=== PATIENT | female | born 1935 | race Caucasian/White ===

== ENCOUNTER 2022-05-06 17:23 | Inpatient (IN) ==
--- NOTE | 2022-05-06 18:37 | Emergency Department Note ---
Impression & Plan Altered mental status, Hypomagnesemia, Weakness, Acute UTI ED Provider Note NAME: GINO SAHNI AGE: 86 SEX: F : 1935 ARRIVES VIA: Ambulance INFORMANT: Patient[nursing, son] ED PROVIDER(S): [Spencer Waller MD] CHIEF COMPLAINT: Altered mental status HISTORY OF PRESENT ILLNESS: The patient is an 86-year-old female who presents for some slowness to respond noted today. No speech slur. No vomiting or diarrhea, no fever or chills. No chest pain or abdominal pain. She has not had cough, cold or congestion. The patient has a history of CVA, there was concern for stroke, the son is concerned for electrolyte abnormalities and dehydration. As per nursing staff, the patient's stroke scale was 0. Her urine dip was positive for infection. REVIEW OF SYSTEMS: See HPI for pertinent positives and negatives. A total of ten systems were reviewed and were otherwise negative. PMHx/PSHx: See Below SOCIAL HISTORY: See Below. PHYSICAL EXAM: GENERAL: Patient is in no acute distress. HEENT: No acute trauma, normocephalic atraumatic, mucous membranes moist, no nasal congestion, no scleral icterus. NECK: No stridor, no adenopathy, no meningismus, trachea is midline. LUNGS: Clear to auscultation bilaterally, no wheeze, no rhonchi, breath sounds equal. HEART: Subtle systolic murmur, regular rate and rhythm. ABDOMEN: Soft, nontender, bowel sounds positive, no peritonitis. There is a yeastlike rash in the groin creases. EXTREMITIES: No cyanosis, full range of motion of all the joints without pain or difficulty, no signs for acute trauma. NEUROLOGIC: Oriented x 3, no acute motor or sensory deficits, no focal weakness. No speech slur, no extremity drift or cerebellar dysfunction. SKIN: No rash, no jaundice, no diaphoresis. DIFFERENTIAL DIAGNOSIS: Infection, dehydration, metabolic abnormality, UTI, COVID-19, influenza, hypo/hyperglycemia, electrolyte disturbance, anemia, hypoxia, cardiac sources, intracerebral event, toxicologic issues, stroke, TIA, as well as other pathologies. EMERGENCY DEPARTMENT COURSE/PROCEDURES: ECG: Indication was weakness. The ECG shows a normal sinus rhythm with a rate of 91. There is no ST elevation, no PVCs. The QTc is 432. Continuous Cardiac Monitoring: An order was placed for continuous cardiac monitoring. The monitor shows a rate of 88 with normal sinus rhythm. MEDICAL DECISION MAKING: There is no leukocytosis. No concerning anemia. There is a normal platelet count. Sodium was low at 131. Creatinine was 1.29, mildly elevated but baseline looking back at recent testing. Magnesium was quite low at 1.3. No worrisome liver enzyme elevation. Lactic acid level was normal making severe sepsis less likely. ECG showed a normal sinus rhythm, no ischemia. Cardiac enzyme testing x1 is not consistent with acute cardiac injury. TSH was elevated however, the T4 was normal. Urinalysis is consistent with infection. COVID, influenza and RSV test were negative. Chest x-ray was clear, no pneumonia. Brain CT showed no acute bleed or mass-effect. On exam, the patient was slow at times to respond but did not slur her words. No focal neurologic findings. The patient presents with weakness, slowness to respond. She was found to have a UTI, a low magnesium and a lower sodium. Given her findings and complaints, I do think a hospital stay is warranted. I spoke with the patient and case planner. The on-call hospitalist was consulted. Past Med/Surg History Medical History CKD (chronic kidney disease) Diabetes Embolic stroke Hypertension Hypothyroidism (acquired) Osteoarthritis Social History Smoking Status: Never smoker Second Hand Exposure: No; Hx Alcohol Use: No Hx Substance Use: No Preferred Language: Yakut Medical Care Manager Required: No Beliefs That Will Affect Care: None Current Living Situation: Long-Term Other Information That Helps Us Care for You: No Feels Safe at Home: Yes Safety Concerns: Feels Safe At This Time Assistive Devices: Glasses and Walker Allergies Allergies Allergy/AdvReac Type Severity Reaction Status Date / Time bacitracin Allergy Unknown Verified 05/06/22 19:44 clindamycin Allergy Unknown Verified 05/06/22 19:44 diltiazem [From Cardizem] Allergy Unknown Verified 05/06/22 19:44 NSAIDS (Non-Steroidal Allergy Unknown Verified 05/06/22 19:44 Anti-Inflamma Penicillins Allergy Unknown Verified 05/06/22 19:44 Sulfa (Sulfonamide Allergy Unknown Verified 05/06/22 19:44 Antibiotics) Home Meds Home Medications Medication Instructions Recorded Confirmed Qc [facility] W/Lutein 1 tab PO DAILY 05/06/22 05/06/22 anastrozole 1 mg tablet 1 mg PO DAILY 05/06/22 05/06/22 aspirin 81 mg chewable tablet 81 mg PO DAILY 05/06/22 05/06/22 (Aspirin Childrens) atorvastatin 80 mg tablet 80 mg PO DAILY 05/06/22 05/06/22 clopidogrel 75 mg tablet 75 mg PO DAILY 05/06/22 05/06/22 coenzyme Q10 100 mg capsule (Co 100 mg PO DAILY 05/06/22 05/06/22 Q-10) diphenhydramine HCl 25 mg tablet 25 mg PO Q8 PRN Itching 05/06/22 05/06/22 ferrous sulfate 325 mg (65 mg 325 mg PO DAILY 05/06/22 05/06/22 iron) tablet glipizide 10 mg tablet, extended 10 mg PO DAILY 05/06/22 05/06/22 release 24 hr glucosamine-chondroitin 250 mg-200 1 tab PO DAILY 05/06/22 05/06/22 mg tablet (Osteo Bi-Flex) hydrocortisone 2.5 % topical cream 1 applic topical BID PRN scaling 05/06/22 05/06/22 insulin aspart U-100 100 unit/mL 1 sliding scale dose subcut AC 05/06/22 05/06/22 (3 mL) subcutaneous pen (Novolog Flexpen U-100 Insulin aspart) insulin glargine 100 unit/mL (3 20 unit subcut .DAILY AT 8 PM 05/06/22 05/06/22 mL) subcutaneous pen (Lantus Solostar U-100 Insulin) levothyroxine 112 mcg tablet 112 mcg PO DAILY 05/06/22 05/06/22 lisinopril 20 mg tablet 20 mg PO DAILY 05/06/22 05/06/22 loratadine 10 mg tablet 10 mg PO DAILY 05/06/22 05/06/22 metformin 500 mg tablet 500 mg PO BIDWMEAL 05/06/22 05/06/22 multivitamin (Daily-Kamilla tablet) 1 tab PO DAILY 05/06/22 05/06/22 nystatin 100,000 unit/gram topical 1 applic topical BID 05/06/22 05/06/22 cream nystatin 100,000 unit/gram topical 1 applic topical TID 05/06/22 05/06/22 powder omega 0-lcl-idp-fish oil 1,200 mg 2 cap PO DAILY 05/06/22 05/06/22 (144 mg-216 mg) capsule (Fish Oil) omeprazole 20 mg capsule,delayed 20 mg PO DAILY 05/06/22 05/06/22 release pantoprazole 20 mg tablet,delayed 20 mg PO DAILY 05/06/22 05/06/22 release potassium chloride 10 mEq 10 meq PO TID 05/06/22 05/06/22 tablet,extended release triamcinolone acetonide 0.1 % 1 applic topical BID 05/06/22 05/06/22 topical ointment Results & Data (ED) Vital Signs Vital Signs - 24 hr 05/06/22 17:36 05/06/22 17:36 05/06/22 17:36 Temperature 36.4 C L Temperature Source Oral Pulse Rate 89 Pulse Rate [Apical] 88 Pulse Rate from SpO2 Sensor Respiratory Rate 16 15 Blood Pressure 180/87 H Blood Pressure Mean 118 Pulse Oximetry 96 Oxygen Delivery Method Room Air Room Air Sepsis Recent Fever Within 48 Hours No Sepsis New/Unexplained Change in Mental Status N/A Sepsis Action Taken by Nursing No Action Required 05/06/22 19:08 05/06/22 19:30 05/06/22 20:00 Temperature Temperature Source Pulse Rate 85 86 81 Pulse Rate [Apical] Pulse Rate from SpO2 Sensor 85 87 82 Respiratory Rate 17 21 18 Blood Pressure Blood Pressure Mean Pulse Oximetry 98 98 98 Oxygen Delivery Method Sepsis Recent Fever Within 48 Hours Sepsis New/Unexplained Change in Mental Status Sepsis Action Taken by Nursing 05/06/22 20:30 05/06/22 20:57 05/06/22 20:57 Temperature Temperature Source Pulse Rate 83 85 Pulse Rate [Apical] Pulse Rate from SpO2 Sensor 86 Respiratory Rate 20 17 Blood Pressure 189/90 H 199/119 H Blood Pressure Mean 123 145 Pulse Oximetry 96 Oxygen Delivery Method Sepsis Recent Fever Within 48 Hours Sepsis New/Unexplained Change in Mental Status Sepsis Action Taken by Nursing 05/06/22 21:00 05/06/22 21:03 05/06/22 21:03 Temperature Temperature Source Pulse Rate 83 86 Pulse Rate [Apical] Pulse Rate from SpO2 Sensor 82 86 Respiratory Rate 16 22 Blood Pressure 200/103 H Blood Pressure Mean 135 Pulse Oximetry 97 96 Oxygen Delivery Method Sepsis Recent Fever Within 48 Hours Sepsis New/Unexplained Change in Mental Status Sepsis Action Taken by Nursing 05/06/22 21:30 05/06/22 21:30 05/06/22 21:51 Temperature Temperature Source Pulse Rate 80 77 Pulse Rate [Apical] Pulse Rate from SpO2 Sensor 80 76 Respiratory Rate 17 19 Blood Pressure 178/105 H Blood Pressure Mean 129 Pulse Oximetry 97 95 Oxygen Delivery Method Sepsis Recent Fever Within 48 Hours Sepsis New/Unexplained Change in Mental Status Sepsis Action Taken by Nursing 05/06/22 21:51 Temperature Temperature Source Pulse Rate Pulse Rate [Apical] Pulse Rate from SpO2 Sensor Respiratory Rate Blood Pressure 183/88 H Blood Pressure Mean 119 Pulse Oximetry Oxygen Delivery Method Sepsis Recent Fever Within 48 Hours Sepsis New/Unexplained Change in Mental Status Sepsis Action Taken by Long-Term Medications Current Medication List: was personally reviewed by me Laboratory Data Attestation: I reviewed the patient's lab results. Result diagrams: 05/06/22 17:33 05/06/22 17:33 Lab Results 05/06/22 05/06/22 05/06/22 Range/Units 17:32 17:33 17:33 WBC 6.04 (4.8-10.8) K/ul RBC 3.74 L (3.93-5.22) M/uL Hgb 11.5 L (12.0-16.0) g/dl Hct 34.2 (34.1-44.9) % MCV 91.4 (80.0-100.0) fL MCH 30.7 (25.0-34.0) pg MCHC 33.6 (32.0-36.0) g/dL RDW Std Deviation 46.3 (36.4-46.3) fL RDW Coeff of Zaid 13.8 (11.5-14.5) % Plt Count 162 (130-400) K/uL MPV 11.3 (9.4-12.3) fL Immature Gran % (Auto) 0.7 % Neut % (Auto) 62.7 % Lymph % (Auto) 23.7 % [place] % (Auto) 8.9 % Eos % (Auto) 3.5 % Baso % (Auto) 0.5 % Neut # (Auto) 3.79 (1.4-6.5) K/uL Lymph # (Auto) 1.43 (1.2-3.4) K/uL [place] # (Auto) 0.54 (0.24-0.82) K/uL Eos # (Auto) 0.21 (0-0.50) K/uL Baso # (Auto) 0.03 (0-0.2) K/uL Immature Gran # (Auto) 0.04 H (0.00-0.02) K/uL Sodium 131 L (136-145) mmol/L Potassium 4.5 (3.5-5.1) mmol/L Chloride 97 L (98-107) mmol/L Carbon Dioxide 22 (21-32) mmol/L Anion Gap 12 H (3-11) BUN 21 (6-23) mg/dl Creatinine 1.29 H (0.6-1.2) mg/dl Est Cr Clr Drug Dosing 38.0 ml/min Est GFR ( Amer) 43.1 ml/min Est GFR (Non-Af Amer) 37.2 ml/min BUN/Creatinine Ratio 16.3 (10-20) Glucose 176 H (70-99(Fasting)) mg/dl POC Glucose (70-99) mg/dl Lactate Calcium 9.5 (8.5-10.1) mg/dl Magnesium 1.3 L (1.7-2.4) mg/dl Total Bilirubin 0.9 (0.2-1.0) mg/dl AST 20 (13-39) U/L ALT 14 (7-52) U/L Alkaline Phosphatase 55 (34-104) U/L Troponin I High Sens 5.6 (0-14) pg/ml Total Protein 7.0 (6.0-8.3) gm/dl Albumin 4.0 (3.4-5.0) gm/dl Globulin 3.0 (2.5-4.0) gm/dl Albumin/Globulin Ratio 1.3 (0.9-2) TSH (0.300-4.500) uIu/ml Free T4 (0.61-1.60) ng/dl Urine Color Yellow Urine Appearance Turbid A (Clear) Urine pH 5.5 (4.5-7.5) Ur Specific [place] 1.013 (1.000-1.030) Urine Protein 1+ H (Negative) Urine Glucose (UA) Trace H (Negative) Urine Ketones Negative (Negative) Urine Blood 1+ H (Negative) Urine Nitrite Positive A (Negative) Urine Bilirubin Negative (Negative) Urine Urobilinogen Negative (Negative) Ur Leukocyte Esterase 3+ H (Negative) Urine WBC (Auto) >30 H (0-5) /hpf Urine RBC (Auto) 0-4 (0-4) /hpf U Hyaline Cast (Auto) 1-5 (0-5) /lpf U Epithel Cells (Auto) >30 H (0-5) /lpf Urine Bacteria (Auto) 4+ H (Negative) SARS-CoV-2 (PCR) (Negative) Influenza Type A (PCR) (Neg) Influenza Type B (PCR) (Neg) RSV (RT-PCR) (Neg) 05/06/22 05/06/22 05/06/22 Range/Units 17:33 19:29 19:46 WBC (4.8-10.8) K/ul RBC (3.93-5.22) M/uL Hgb (12.0-16.0) g/dl Hct (34.1-44.9) % MCV (80.0-100.0) fL MCH (25.0-34.0) pg MCHC (32.0-36.0) g/dL RDW Std Deviation (36.4-46.3) fL RDW Coeff of Zaid (11.5-14.5) % Plt Count (130-400) K/uL MPV (9.4-12.3) fL Immature Gran % (Auto) % Neut % (Auto) % Lymph % (Auto) % [place] % (Auto) % Eos % (Auto) % Baso % (Auto) % Neut # (Auto) (1.4-6.5) K/uL Lymph # (Auto) (1.2-3.4) K/uL [place] # (Auto) (0.24-0.82) K/uL Eos # (Auto) (0-0.50) K/uL Baso # (Auto) (0-0.2) K/uL Immature Gran # (Auto) (0.00-0.02) K/uL Sodium (136-145) mmol/L Potassium (3.5-5.1) mmol/L Chloride (98-107) mmol/L Carbon Dioxide (21-32) mmol/L Anion Gap (3-11) BUN (6-23) mg/dl Creatinine (0.6-1.2) mg/dl Est Cr Clr Drug Dosing ml/min Est GFR ( Amer) ml/min Est GFR (Non-Af Amer) ml/min BUN/Creatinine Ratio (10-20) Glucose (70-99(Fasting)) mg/dl POC Glucose (70-99) mg/dl Lactate Cancelled Calcium (8.5-10.1) mg/dl Magnesium (1.7-2.4) mg/dl Total Bilirubin (0.2-1.0) mg/dl AST (13-39) U/L ALT (7-52) U/L Alkaline Phosphatase (34-104) U/L Troponin I High Sens (0-14) pg/ml Total Protein (6.0-8.3) gm/dl Albumin (3.4-5.0) gm/dl Globulin (2.5-4.0) gm/dl Albumin/Globulin Ratio (0.9-2) TSH 9.982 H (0.300-4.500) uIu/ml Free T4 0.85 (0.61-1.60) ng/dl Urine Color Urine Appearance (Clear) Urine pH (4.5-7.5) Ur Specific [place] (1.000-1.030) Urine Protein (Negative) Urine Glucose (UA) (Negative) Urine Ketones (Negative) Urine Blood (Negative) Urine Nitrite (Negative) Urine Bilirubin (Negative) Urine Urobilinogen (Negative) Ur Leukocyte Esterase (Negative) Urine WBC (Auto) (0-5) /hpf Urine RBC (Auto) (0-4) /hpf U Hyaline Cast (Auto) (0-5) /lpf U Epithel Cells (Auto) (0-5) /lpf Urine Bacteria (Auto) (Negative) SARS-CoV-2 (PCR) NEGATIVE (Negative) Influenza Type A (PCR) Negative (Neg) Influenza Type B (PCR) Negative (Neg) RSV (RT-PCR) Negative (Neg) 05/06/22 05/06/22 Range/Units 20:12 20:30 WBC (4.8-10.8) K/ul RBC (3.93-5.22) M/uL Hgb (12.0-16.0) g/dl Hct (34.1-44.9) % MCV (80.0-100.0) fL MCH (25.0-34.0) pg MCHC (32.0-36.0) g/dL RDW Std Deviation (36.4-46.3) fL RDW Coeff of Zaid (11.5-14.5) % Plt Count (130-400) K/uL MPV (9.4-12.3) fL Immature Gran % (Auto) % Neut % (Auto) % Lymph % (Auto) % [place] % (Auto) % Eos % (Auto) % Baso % (Auto) % Neut # (Auto) (1.4-6.5) K/uL Lymph # (Auto) (1.2-3.4) K/uL [place] # (Auto) (0.24-0.82) K/uL Eos # (Auto) (0-0.50) K/uL Baso # (Auto) (0-0.2) K/uL Immature Gran # (Auto) (0.00-0.02) K/uL Sodium (136-145) mmol/L Potassium (3.5-5.1) mmol/L Chloride (98-107) mmol/L Carbon Dioxide (21-32) mmol/L Anion Gap (3-11) BUN (6-23) mg/dl Creatinine (0.6-1.2) mg/dl Est Cr Clr Drug Dosing ml/min Est GFR ( Amer) ml/min Est GFR (Non-Af Amer) ml/min BUN/Creatinine Ratio (10-20) Glucose (70-99(Fasting)) mg/dl POC Glucose 157 H (70-99) mg/dl Lactate 1.9 Calcium (8.5-10.1) mg/dl Magnesium (1.7-2.4) mg/dl Total Bilirubin (0.2-1.0) mg/dl AST (13-39) U/L ALT (7-52) U/L Alkaline Phosphatase (34-104) U/L Troponin I High Sens (0-14) pg/ml Total Protein (6.0-8.3) gm/dl Albumin (3.4-5.0) gm/dl Globulin (2.5-4.0) gm/dl Albumin/Globulin Ratio (0.9-2) TSH (0.300-4.500) uIu/ml Free T4 (0.61-1.60) ng/dl Urine Color Urine Appearance (Clear) Urine pH (4.5-7.5) Ur Specific [place] (1.000-1.030) Urine Protein (Negative) Urine Glucose (UA) (Negative) Urine Ketones (Negative) Urine Blood (Negative) Urine Nitrite (Negative) Urine Bilirubin (Negative) Urine Urobilinogen (Negative) Ur Leukocyte Esterase (Negative) Urine WBC (Auto) (0-5) /hpf Urine RBC (Auto) (0-4) /hpf U Hyaline Cast (Auto) (0-5) /lpf U Epithel Cells (Auto) (0-5) /lpf Urine Bacteria (Auto) (Negative) SARS-CoV-2 (PCR) (Negative) Influenza Type A (PCR) (Neg) Influenza Type B (PCR) (Neg) RSV (RT-PCR) (Neg) Administered Medications Discontinued Medications Ceftriaxone Sodium (Rocephin) 2,000 mg in 70 mls @ 140 mls/hr IV NOW STA Stop: 05/06/22 20:11 Last Infusion: 05/06/22 21:08 Dose: 0 mls/hr Documented By: Admin: 05/06/22 20:24 Dose: 140 mls/hr Documented By: SHALOM Sodium Chloride (Nss 1000ml) 1,000 mls @ 999 mls/hr IV .Q1H1M ONE Stop: 05/06/22 20:57 Last Infusion: 05/06/22 22:06 Dose: 0 mls/hr Documented By: Admin: 05/06/22 21:13 Dose: 999 mls/hr Documented By: SHALOM Magnesium Sulfate/Dextrose (Magnesium Sulfate / D5w) 1 gm in 100 mls @ 100 mls/hr IV Q1H JOSUÉ Stop: 05/06/22 22:51 Last Infusion: 05/06/22 23:36 Dose: 0 mls/hr Documented By: Admin: 05/06/22 22:16 Dose: 100 mls/hr Documented By: Infusion: 05/06/22 22:09 Dose: 100 mls/hr Documented By: Admin: 05/06/22 21:09 Dose: 100 mls/hr Documented By: SHALOM Labetalol HCl (Labetalol Hcl Iv 5 Mg/Ml 20ml) 10 mg IV NOW STA Stop: 05/06/22 21:19 Last Admin: 05/06/22 21:26 Dose: 10 mg Documented By: SHALOM Co-signed By: [facility] Imaging Data Radiologist's Impression: Chest X-Ray 05/06/22 18:35 XR chest 1V portable CLINICAL HISTORY: weakness COMPARISON STUDY: Chest radiograph January 16, 2022. FINDINGS: Lung volumes are normal. Lungs are clear. There is no pneumothorax or pleural effusion. Mild cardiomegaly with mitral annular calcification. Mediastinal contours are normal. There is no evidence for pulmonary edema. IMPRESSION: No acute cardiopulmonary findings. ACT 112: Negative or not required by law. Electronically signed by: Hilton Moreau M.D. 05/06/2022 6:[address] 05/06/22 18:35 CT OF THE HEAD WITHOUT CONTRAST CLINICAL HISTORY: Confusion. COMPARISON STUDY: Head CT January 16, 2022. CT DOSE: 537.48 mGy.cm TECHNIQUE: Helical axial images of the head were obtained without IV contrast. Automated exposure control was utilized for the study. A dose lowering technique was utilized adhering to the principles of ALARA. FINDINGS: No acute intracranial hemorrhage, midline shift or mass effect is p resent. Ventricular system is stable. Basal cisterns are patent. There are no extra axial collections. Encephalomalacia within the left parietal lobe is unchanged. This represents an old infarct. An old lacunar infarct within left cerebellar hemisphere. White matter hypodensity suggests small vessel disease. The appearance of the brain is unchanged. There are no findings to suggest acute dural sinus thrombosis or acute territorial infarct. There is no acute calvarial fracture. Bilateral mastoid air cells are partially opacified. This is unchanged. IMPRESSION: No acute intracranial findings. No change in appearance of the brain. ACT 112: Negative or not required by law. Electronically signed by: Hilton Moreau M.D. 05/06/2022 7:10 PM Discharge Plan Visit Data Chief Complaint: Altered Mental Status ED Provider: Spencer Waller Discharge Problem: Altered mental status, Hypomagnesemia, Weakness, Acute UTI Patient Disposition: Admitted As Inpatient Condition: Fair Discharge Instructions Interventions: ED Discharge Assessment Last Done: 05/06/22 22:43
--- NOTE | 2022-05-06 18:53 | XRay Report ---
XR chest 1V portable CLINICAL HISTORY: weakness COMPARISON STUDY: Chest radiograph January 16, 2022. FINDINGS: Lung volumes are normal. Lungs are clear. There is no pneumothorax or pleural effusion. Mil d cardiomegaly with mitral annular calcification. Mediastinal contours are normal. There is no eviden ce for pulmonary edema. IMPRESSION: No acute cardiopulmonary findings. ACT 112: Negative or not required by law. Electronically signed by: Hilton Moreau M.D. 05/06/2022 6:52 PM
--- NOTE | 2022-05-06 19:11 | CT Scan Report ---
CT OF THE HEAD WITHOUT CONTRAST CLINICAL HISTORY: Confusion. COMPARISON STUDY: Head CT January 16, 2022. CT DOSE: 537.48 mGy.cm TECHNIQUE: Helical axial images of the head were obtained without IV contrast. Automated exposure con trol was utilized for the study. A dose lowering technique was utilized adhering to the principles o f ALARA. FINDINGS: No acute intracranial hemorrhage, midline shift or mass effect is present. Ventricular syst em is stable. Basal cisterns are patent. There are no extra axial collections. Encephalomalacia withi n the left parietal lobe is unchanged. This represents an old infarct. An old lacunar infarct within left cerebellar hemisphere. White matter hypodensity suggests small vessel disease. The appearance of the brain is unchanged. There are no findings to suggest acute dural sinus thrombosis or acute dannie torial infarct. There is no acute calvarial fracture. Bilateral mastoid air cells are partially opaci fied. This is unchanged. IMPRESSION: No acute intracranial findings. No change in appearance of the brain. ACT 112: Negative or not required by law. Electronically signed by: Hilton Moreau M.D. 05/06/2022 7:10 PM
[2022-05-06 19:20] LABS: Albumin Globulin Ratio 1.3 (0.9-2); BUN Creatinine Ratio 16.3 (10-20); Bilirubin,Total 0.9 mg/dl (0.2-1.0); Calcium 9.5 mg/dl (8.5-10.1); Est GFR (African American) 43.1 ml/min; Est GFR (Non-African American) 37.2 ml/min; Magnesium 1.3 mg/dl (1.7-2.4); Potassium 4.5 mmol/L (3.5-5.1)
[2022-05-06 19:23] LABS: Troponin I High Sensitivity 5.6 pg/ml (0-14)
[2022-05-06 19:34] LABS: Appearance Urine Turbid (Clear); Bacteria Urine Automated 4+ (Negative); Bilirubin Urine Negative (Negative); Blood Urine 1+ (Negative); Color Urine Yellow; Epithelial Cell Urine Auto >30 /lpf (0-5); Glucose Urine UA Trace (Negative); Ketones Urine Negative (Negative); Leukocyte Esterase Urine 3+ (Negative); Nitrite Urine Positive (Negative); Protein Urine 1+ (Negative); RBC Urine Automated 0-4 /hpf (0-4); Specific Gravity Urine 1.013 (1.000-1.030); Urobilinogen Urine Negative (Negative); WBC Urine Automated >30 /hpf (0-5); pH Urine 5.5 (4.5-7.5)
[2022-05-06 19:38] LABS: Thyroid Stimulating Hormone 9.982 uIu/ml (0.300-4.500)
[2022-05-06] MEDS ORDERED: cefTRIAXone SODIUM 2,000 MG/70 ML BAG IV STA (19:42)
[2022-05-06 19:44] LABS: Basophils # (auto) 0.03 K/uL (0-0.2); Basophils % (auto) 0.5 %; Eosinophils # (auto) 0.21 K/uL (0-0.50); Eosinophils % (auto) 3.5 %; Hematocrit (blood only) 34.2 % (34.1-44.9); Hemoglobin 11.5 g/dl (12.0-16.0); Immature Granulocytes # (auto) 0.04 K/uL (0.00-0.02); Immature Granulocytes % (auto) 0.7 %; Lymphocytes # (auto) 1.43 K/uL (1.2-3.4); Lymphocytes % (auto) 23.7 %; Mean Corpuscular Hemoglobin 30.7 pg (25.0-34.0); Mean Corpuscular Hgb Conc 33.6 g/dL (32.0-36.0); Mean Corpuscular Volume 91.4 fL (80.0-100.0); Mean Platelet Volume 11.3 fL (9.4-12.3); Monocytes # (auto) 0.54 K/uL (0.24-0.82); Monocytes % (auto) 8.9 %; Neutrophils # (auto) 3.79 K/uL (1.4-6.5); Neutrophils % (auto) 62.7 %; Platelet Count 162 K/uL (130-400); RDW Coefficient of Variation 13.8 % (11.5-14.5); RDW Standard Deviation 46.3 fL (36.4-46.3); Red Blood Count 3.74 M/uL (3.93-5.22); White Blood Count 6.04 K/ul (4.8-10.8)
[2022-05-06] MEDS ORDERED: SODIUM CHLORIDE 0.9% 1000ML 1,000 ML IV ONE (19:57)
[2022-05-06 20:44] LABS: T4 Free Thyroxine 0.85 ng/dl (0.61-1.60)
[2022-05-06 20:48] LABS: Influenza A virus by PCR Negative (Neg); Influenza B virus by PCR Negative (Neg); RSV by PCR Negative (Neg); SARS CoV2 RNA(COVID-19)Cepheid NEGATIVE (Negative)
[2022-05-06] MEDS: MAGNESIUM SULFATE / D5W 1 GM/100 ML BAG IV SCH ×2 (21:09→22:16)
[2022-05-06] MEDS ORDERED: LABETALOL HCL IV 5 MG/ML 20ML IV STA (21:18)
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
[2022-05-06] MEDS ORDERED: ONDANSETRON INJ 2 MG/ML 2 ML VIAL IV PRN (22:00)
[2022-05-06] MEDS ORDERED: POLYETHYLENE (MIRALAX) 17 GM PACK PO PRN (22:00)
[2022-05-06] MEDS ORDERED: ACETAMINOPHEN 325 MG TAB PO PRN (22:00)
[2022-05-06] MEDS ORDERED: GLUCAGON FOR INJ 1 MG VIAL SQ PRN (22:07)
[2022-05-06] MEDS ORDERED: GLUCOSE 10 TAB/TUBE PO PRN (22:07)
[2022-05-06] MEDS ORDERED: GLUCOSE 40% GEL 15 GM TUBE PO PRN (22:07)
[2022-05-06] MEDS ORDERED: CARBOHYDRATES FOR HYPOGLYCEMIA PO PRN (22:07)
[2022-05-06] MEDS ORDERED: DEXTROSE 50% 50 ML SYRINGE IV PRN (22:07)
[2022-05-07] MEDS: LANTUS PER UNIT CHARGE SQ SCH ×2 (00:07→21:35)
[2022-05-07] MEDS: INSULIN ASPART PER UNIT SC SCH ×5 (01:06→21:37)
[2022-05-07] MEDS: LEVOTHYROXINE SODIUM 112 MCG TABLET PO SCH (06:04)
[2022-05-07] MEDS ORDERED: INSULIN ASPART PER UNIT SC SCH (07:30)
[2022-05-07 07:32] LABS: Hematocrit (blood only) 32.6 % (34.1-44.9); Hemoglobin 11.2 g/dl (12.0-16.0); Mean Corpuscular Hemoglobin 31.3 pg (25.0-34.0); Mean Corpuscular Hgb Conc 34.4 g/dL (32.0-36.0); Mean Corpuscular Volume 91.1 fL (80.0-100.0); Mean Platelet Volume 11.4 fL (9.4-12.3); Platelet Count 172 K/uL (130-400); RDW Coefficient of Variation 13.7 % (11.5-14.5); RDW Standard Deviation 45.7 fL (36.4-46.3); Red Blood Count 3.58 M/uL (3.93-5.22); White Blood Count 5.94 K/ul (4.8-10.8)
[2022-05-07 08:01] LABS: BUN Creatinine Ratio 16.1 (10-20); Calcium 8.9 mg/dl (8.5-10.1); Creatinine Clr Calc Pharmacy 43.4 ml/min; Est GFR (African American) 51.2 ml/min; Est GFR (Non-African American) 44.1 ml/min; Magnesium 1.7 mg/dl (1.7-2.4); Potassium 4.1 mmol/L (3.5-5.1)
[2022-05-07] MEDS ORDERED: POTASSIUM CHLORIDE 10 MEQ TABCR PO SCH (09:00)
[2022-05-07] MEDS ORDERED: NON-FORMULARY MEDICATION (Coenzyme Q10 [Co Q-10] 100 mg Capsule) PO SCH (09:00)
[2022-05-07] MEDS ORDERED: LUTEIN PO SCH (09:00)
[2022-05-07] MEDS ORDERED: [UNRECOGNIZED DRUG - OTHER] PO SCH (09:00)
[2022-05-07] MEDS ORDERED: cefTRIAXone SODIUM 1,000 MG in DEXTROSE 5% 50 ML IV SCH (09:00)
[2022-05-07] MEDS ORDERED: NYSTATIN POWDER 15GM BTL EXT SCH (09:00)
[2022-05-07] MEDS ORDERED: NON-FORMULARY MEDICATION (Glucosamine-Chondroitin [Osteo Bi-Flex] 250-200 mg Tablet) PO SCH (09:00)
[2022-05-07] MEDS: ATORVASTATIN 40 MG TAB PO SCH (09:10)
[2022-05-07] MEDS: ASPIRIN 81 MG ECTAB PO SCH (09:10)
[2022-05-07] MEDS: CLOPIDOGREL BISULFATE 75 MG TAB PO SCH (09:10)
[2022-05-07] MEDS: NYSTATIN CR 15 GM TUBE EXT SCH ×2 (09:10→21:38)
[2022-05-07] MEDS: PANTOprazole 40 MG TAB PO SCH (09:10)
[2022-05-07] MEDS: OMEGA-3 (PURIFIED FISH OIL) 1 GM CAP PO SCH (09:10)
[2022-05-07] MEDS: MULTIVITAMIN TAB PO SCH (09:11)
[2022-05-07] MEDS: POTASSIUM CHLORIDE 10 MEQ TABCR PO SCH ×2 (09:11→21:39)
[2022-05-07] MEDS: LORATADINE 10 MG TAB PO SCH (09:11)
[2022-05-07] MEDS: lisinopril 20 MG TAB PO SCH (09:11)
[2022-05-07] MEDS: FERROUS SULFATE 325 MG TAB PO SCH (09:11)
[2022-05-07] MEDS: glipiZIDE ER 2.5 MG TABCR PO SCH (09:12)
[2022-05-07] MEDS: HEPARIN SOD 5,000 UNIT/0.5 ML VIAL SQ SCH ×2 (09:16→21:38)
[2022-05-07] MEDS: ANASTROZOLE 1 MG TAB PO SCH (09:22)
[2022-05-07] MEDS: metFORMIN HCL 500 MG TAB PO SCH ×2 (10:11→17:10)
--- NOTE | 2022-05-07 13:28 | Hospitalist Progress Note ---
Date of Service May 07, 2022 Assessment & Plan (1) Altered mental state: Plan: 86yo Female with PMH hx stroke, DM2, HLD, GERD, HTN, hypothyroidism, hx breast cancer here for AMS. AMS -likely 2/2 to UTI -currently back at baseline, AAOx3 -CT head: No acute intracranial findings. No change in appearance of the brain. - CXR: No acute cardiopulmonary findings. - CBC lactate trop neg - Mg 1.3, repleted 1g in ED - received Rocephin 2g in ED (2) Hypomagnesemia: Plan: Magnesium level 1.3 mg/dL on admission labs. Magnesium sulfate 2 g IV given on admission, repeat level 1.7, will give additional 2 g IV today and start magnesium oxide 400 mg p.o. twice daily (3) Acute UTI: Plan: -UCX - GNB -Bcx pending -received Rocephin 2g in ED, continue Rocephin 1g daily -transition to PO once sensitivities available (4) Hypothyroidism (acquired): Plan: -TSH 9.9, free T4 0.85 -continue levothyroxine -may be elevated 2/2 infection, consider recheck in 1 month, if still elevated increase daily levothyroxine (5) Hypertension: Plan: -bp elevated on admit 189/90 -received 1L NSS in ED -continue lisinopril (6) Diabetes: Plan: -recent A1c 9.5 -Continue her regular metformin, glipizide and Lantus -Novolog: Correction factor 30 mg/dL/unit, will discontinue carbohydrate coverage as continuing her usual glipizide effectively for carbohydrate coverage (7) Embolic stroke: Plan: History of stroke -continue aspirin plavix -continue Atorvastatin (8) GERD (gastroesophageal reflux disease): Plan: -continue protonix -is on both protonix and omeprazole at home, consider dc omeprazole for home medications (9) History of breast cancer: Plan: Continue anastrozole 1 mg p.o. daily (10) CKD (chronic kidney disease): Plan: -chronic, creat 1.29 -> 1.12 Plan VTE prophylaxis -Heparin 5000 units subcu twice daily Diet -type 2 diabetes Disposition -stable for transfer to [facility], possible discharge tomorrow pending PT OT eitan Admission and Anticipated Discharge Date Admission Date: May 06, 2022 Subjective No acute concerns or questions from patient. She is able to tell me why she is in the hospital with concerns of her slurred speech when she tried to use her echo device in her room. She denies any fever chills, urinary frequency, change in urine frequency/smell/color, dysuria or back pain. Discussed with her son over the phone. He reports feeling his mother is back to her baseline at this time. Possible need for [facility] rehabilitation plan physical therapy versus home health PT. Occupational Therapy assessment pending. Asymptomatic nonsustained VT of 7 beats on telemetry otherwise unremarkable. Review of Systems Review of Systems: All systems reviewed & are unremarkable except as noted in Subjective Physical Exam Constitutional: WD/WN, vitals as above Eyes: PERRL, conjunctivae normal, anicteric sclerae Respiratory: normal respiratory effort, lungs clear to auscultation Cardiovascular: RRR, no murmur, no edema Gastrointestinal (Abdomen): normal bowel sounds, soft, nontender, no he patosplenomegaly Musculoskeletal: no cyanosis or clubbing, extremities motor strength 5/5 Skin: no rashes, warm and dry Psychiatric: A+Ox3, euthymic affect Results & Data Results & Data ([facility]) Vital Signs (Past 12 Hours) Vital Signs Temp Pulse Pulse Resp BP Pulse Ox O2 Del Method 05/07/22 09:30 Room Air 05/07/22 11:25 37.0 C 66 18 127/73 95 05/07/22 07:48 36.6 C 73 18 138/70 91 Room Air 05/07/22 07:19 73 14 143/76 H 96 Room Air 05/07/22 07:04 75 05/07/22 04:00 36.5 C 76 19 143/75 H 96 Room Air PG Care Time/CCT Total # of Minutes Spent Total Time Spent with Patient: Total time spent is greater than 50% in coordination of care (as documented) at patient's floor/unit and/or counseling patient: Coding Level of Care Code 72923 Subseq Hosp Care Lvl 2 Diagnoses Altered mental state R41.82 Hypomagnesemia E83.42 Acute UTI N39.0 Hypothyroidism (acquired) E03.9 Hypertension I10 Diabetes E11.9 Embolic stroke I63.9 GERD (gastroesophageal reflux disease) K21.9 History of breast cancer Z85.3 CKD (chronic kidney disease) N18.9
[2022-05-07] MEDS: MAGNESIUM SULFATE / D5W 1 GM/100 ML BAG IV SCH ×2 (13:30→15:47)
--- NOTE | 2022-05-07 15:59 | Electrocardiogram Report ---
Test Reason : Blood Pressure : / mmHG Vent. Rate : 091 BPM Atrial Rate : 091 BPM P-R Int : 178 ms QRS Dur : 084 ms QT Int : 352 ms P-R-T Axes : 060 021 084 degrees QTc Int : 432 ms Normal sinus rhythm Possible Left atrial enlargement Borderline ECG When compared with ECG of 16-JAN-2022 16:56, No significant change was found Confirmed by Prieto Ramos ([id number]) on 05/07/2022 3:59:07 PM Referred By: REFERRED SELF Confirmed By:Prieto Ramos
--- NOTE | 2022-05-07 19:11 | Billing Data ---
Date of Service May 07, 2022 Coding Level of Care Code 50880 Initial Inpt Care Lvl 3
[2022-05-07] MEDS ORDERED: cefTRIAXone SODIUM 2,000 MG in DEXTROSE 5% 50 ML IV SCH (20:00)
[2022-05-07] MEDS ORDERED: LANTUS PER UNIT CHARGE SQ SCH (21:00)
[2022-05-07] MEDS: MAGNESIUM OXIDE 400 MG TAB PO SCH (21:38)
[2022-05-08] MEDS: LEVOTHYROXINE SODIUM 112 MCG TABLET PO SCH (06:04)
[2022-05-08] MEDS: glipiZIDE ER 2.5 MG TABCR PO SCH (08:12)
[2022-05-08] MEDS: MAGNESIUM OXIDE 400 MG TAB PO SCH (08:12)
[2022-05-08] MEDS: POTASSIUM CHLORIDE 10 MEQ TABCR PO SCH (08:12)
[2022-05-08] MEDS: LORATADINE 10 MG TAB PO SCH (08:13)
[2022-05-08] MEDS: FERROUS SULFATE 325 MG TAB PO SCH (08:13)
[2022-05-08] MEDS: ASPIRIN 81 MG ECTAB PO SCH (08:13)
[2022-05-08] MEDS: ATORVASTATIN 40 MG TAB PO SCH (08:13)
[2022-05-08] MEDS: PANTOprazole 40 MG TAB PO SCH (08:13)
[2022-05-08] MEDS: lisinopril 20 MG TAB PO SCH (08:13)
[2022-05-08] MEDS: OMEGA-3 (PURIFIED FISH OIL) 1 GM CAP PO SCH (08:13)
[2022-05-08] MEDS: ANASTROZOLE 1 MG TAB PO SCH (08:13)
[2022-05-08] MEDS: CLOPIDOGREL BISULFATE 75 MG TAB PO SCH (08:13)
[2022-05-08] MEDS: metFORMIN HCL 500 MG TAB PO SCH (08:13)
[2022-05-08] MEDS: HEPARIN SOD 5,000 UNIT/0.5 ML VIAL SQ SCH (08:13)
[2022-05-08] MEDS: MULTIVITAMIN TAB PO SCH (08:14)
[2022-05-08] MEDS: NYSTATIN CR 15 GM TUBE EXT SCH (08:14)
[2022-05-08] MEDS: INSULIN ASPART PER UNIT SC SCH ×2 (08:25→12:30)
--- NOTE | 2022-05-08 15:44 | Discharge Summary ---
Date of Service May 08, 2022 Admission HPI Per Admitting Provider 86yo Female with PMH hx stroke, DM2, HLD, GERD, HTN, hypothyroidism, hx breast cancer here for AMS. Per patient, earlier today she was working with physical therapy, returning to her room when she noticed she could not remember how to command her echo to turn on her light. Physical therapy notified nursing, who decided to send patient to hospital. Patient's son present in room, states this occurred around 4-5pm, states at this time she has returned to her baseline. Patient denied any falls, episodes of confusion, nausea vomitting diarrhea constipation chest pain abd pain SOB headache fever, pain with urination. States she may have urinary discomfort is not sure, has baseline occasional incontinence of urine, is unable to smell her urine. She denies any weakness or loss of sensation, loss of vision, has a good appetite currently hungry and thirsty. Principal Diagnosis Hypomagnesemia Urine tract infection Discharge Exam Constitutional WD/WN, vitals as above Eyes PERRL, conjunctivae normal, anicteric sclerae Respiratory normal respiratory effort, lungs clear to auscultation Cardiovascular RRR, no murmur, no edema Gastrointestinal (Abdomen) normal bowel sounds, soft, nontender, no hepatosplenomegaly Musculoskeletal no cyanosis or clubbing, extremities motor strength 5/5 Skin no rashes, warm and dry Psychiatric A+Ox3, euthymic affect Discharge Data Allergies Allergy/AdvReac Type Severity Reaction Status Date / Time bacitracin Allergy Unknown Verified 05/06/22 19:44 clindamycin Allergy Unknown Verified 05/06/22 19:44 diltiazem [From Cardizem] Allergy Unknown Verified 05/06/22 19:44 NSAIDS (Non-Steroidal Allergy Unknown Verified 05/06/22 19:44 Anti-Inflamma Penicillins Allergy Unknown Verified 05/06/22 19:44 Sulfa (Sulfonamide Allergy Unknown Verified 05/06/22 19:44 Antibiotics) Consultations 05/06/22 21:19 ED Decision to Admit Stat Ordered Studies 05/06/22 18:35 CT head/brain wo con Stat IMPRESSION: No acute intracranial findings. No change in appearance of the brain. Hospital Course (1) Altered mental state: Maeve Lorenz is an 86 year old female admitted to [facility] from May 06 to 2021 due to altered mental status. Suspect this was a combination of urine tract infection and hypomagnesemia. She was started on magnesium supplementation with magnesium oxide 400 mg p.o. twice daily. Urine culture grew E. coli resistant to ampicillin. She was treated with ceftriaxone during her inpatient stay and will be switched to Keflex on discharge. HbA1c was noted to be 9.5. Given glucose values in the hospital recommended increasing Lantus to 25 units daily and following up with her primary care physician for ongoing management of this. She was also noted to be on 2 proton pump inhibitors - pantoprazole and omeprazole. Pantoprazole therefore was discontinued. (2) Hypothyroidism (acquired): (3) Hypertension: (4) Diabetes: (5) Embolic stroke: (6) GERD (gastroesophageal reflux disease): (7) History of breast cancer: (8) Hypomagnesemia: Total Time Total Time Spent Total Time Spent (In Minutes): 35 Discharge Plan Discharge Items Patient Disposition: Personal Long-Term Reason For Visit: ALTERED MENTAL STATUS Discharge Diagnosis: Low magnesium Urine tract infection Condition on Discharge: Fair Activity: Resume your previous activity Non-emergency contact: Primary Care Provider Call non-emergency contact if: you have any medication questions and your symptoms worsen Follow-up/Referrals: LISA SOTELO [Primary Care Provider] - Diet: Carb Consistent or DM2 Addtl Attending Provider Instructions: You were admitted to [facility] from May 06 to 2021 due to altered mental status. Suspect this was a combination of urine tract infection and low magnesium levels. He was started on magnesium supplementation with magnesium oxide 400 mg p.o. twice daily. Urine culture grew E. coli resistant to ampicillin. You were treated with ceftriaxone during her inpatient stay and will be switched to Keflex on discharge. Regarding your diabetes your HbA1c was 9.5 on April 30. Given glucose values in the hospital recommend increasing your Lantus to 25 units daily and following up with your primary care physician for ongoing management of this. You also noted to be on 2 proton pump inhibitors -pantoprazole and omeprazole. Recommend any continuing 1 of these therefore pantoprazole has been discontinued. Pending Studies at Discharge: No Stand-Alone Forms: My [facility] Miew, Smoking Cessation Skilled Items Patient informed of condition?: Yes DNR: No Discharge Level of Care: Other Communicable Disease: No Discharge Prognosis: Stable Lines: None Urinary Catheter: No Medications and DC Order Prescriptions: New cephalexin 500 mg capsule 500 mg PO BID 5 Days Qty: 10 0RF magnesium oxide 400 mg magnesium tablet 400 mg PO BID Qty: 60 0RF Continued multivitamin [Daily-Kamilla] Tablet 1 tab PO DAILY anastrozole 1 mg Tablet 1 mg PO DAILY atorvastatin 80 mg Tablet 80 mg PO DAILY clopidogrel 75 mg Tablet 75 mg PO DAILY ferrous sulfate 325 mg (65 mg iron) Tablet 325 mg PO DAILY aspirin [Aspirin Childrens] 81 mg Tablet,Chewable 81 mg PO DAILY coenzyme Q10 [Co Q-10] 100 mg Capsule 100 mg PO DAILY omega 5-sfy-jhy-fish oil [Fish Oil] 1,200 (144-216) mg Capsule 2 cap PO DAILY glipizide 10 mg Tablet Extended Release 24hr 10 mg PO DAILY omeprazole 20 mg Capsule,Delayed Release(Dr/Ec) 20 mg PO DAILY Rx Instructions: take at 0800 hydrocortisone 2.5 % Cream 1 applic TOPICAL BID PRN (Reason: scaling) Rx Instructions: apply to area on nose metformin 500 mg Tablet 500 mg PO BIDWMEAL lisinopril 20 mg Tablet 20 mg PO DAILY potassium chloride 10 mEq Tablet Extended Release 10 meq PO TID triamcinolone acetonide 0.1 % Ointment 1 applic TOPICAL BID Rx Instructions: apply to rash on arms and legs until clear diphenhydramine HCl 25 mg Tablet 25 mg PO Q8 PRN (Reason: Itching) nystatin 100,000 unit/gram Powder 1 applic TOPICAL TID Rx Instructions: sprinkle over affected area for rash loratadine 10 mg Tablet 10 mg PO DAILY levothyroxine 112 mcg Tablet 112 mcg PO DAILY glucosamine-chondroitin [Osteo Bi-Flex] 250-200 mg Tablet 1 tab PO DAILY Qc [facility] W/Lutein 1 tab PO DAILY nystatin 100,000 unit/gram Cream 1 applic TOPICAL BID Rx Instructions: apply to affected area until rah is clear insulin aspart U-100 [Novolog Flexpen U-100 Insulin] 100 unit/mL (3 mL) Insulin Pen 1 sliding scale dose SUBCUT AC Rx Instructions: BSG 80-200=0 units 201-250=6 units 251-300=9 units 300+ give 12 units and call Changed insulin glargine [Lantus Solostar U-100 Insulin] 100 unit/mL (3 mL) Insulin Pen 25 unit SUBCUT .DAILY AT 8 PM Qty: 15 0RF Discontinued pantoprazole 20 mg Tablet,Delayed Release (Dr/Ec) 20 mg PO DAILY Rx Instructions: take at 0600 Discharge Orders: Discharge Order (Routine); Ordered 05/08/22 Ordered By: Kamlesh Bill Admission Data Admit Date/Time: 05/06/22 22:01 Attending Provider: Kamlesh Bill Admit Provider: Tai Sánchez Primary Care Provider: LISA SOTELO [facility] Other Providers: Tai Sánchez Other Interventions: Discharge Summary Assessment (RN) Last Done: 05/08/22 15:55 Coding Level of Care Code D/C DAY MANAGEMENT >30 MINS Diagnoses Altered mental state R41.82 Hypothyroidism (acquired) E03.9 Hypertension I10 Diabetes E11.9 Embolic stroke I63.9 GERD (gastroesophageal reflux disease) K21.9 History of breast cancer Z85.3 Hypomagnesemia E83.42
== END 2022-05-08 16:25 | disposition home or self-care (01) | DRG 690 ==
LOC: ED 17:23 → SUATTDRO 22:01 → 2N 22:01

== ENCOUNTER 2023-11-11 10:14 | Inpatient (IN) ==
--- NOTE | 2023-11-11 10:53 | Emergency Department Note ---
Impression & Plan Choking episode ED Provider Note ED Provider Note NAME: GINO SAHNI AGE:88 SEX: Female : 1935 ARRIVES VIA: EMS INFORMANT: Patient ED PROVIDER(s): Tamar Najera DO CHIEF COMPLAINT: Choking episode HPI: This is an 88-year-old female sent to the emergency department from a local facility after staff witnessed patient have an episode of choking. Patient states she got up and was eating breakfast including eggs, toast, and newman. She states initially she felt well and then had the sudden onset of a sensation that she could not swallow. Staff stated she appeared to be choking, and having difficulty breathing, and they checked her oxygen and found it to be in the 60s. They states she did not lose consciousness, no Heimlich maneuver was performed. Upon EMS arrival, patient was placed on oxygen as a precaution however she was awake and talking. She denied any pain. On arrival here patient denies any sense of esophageal foreign body, denies any sore throat, denies nausea, dizziness, difficulty breathing, cough, or concern for choking. Patient states remote history of needing her esophagus "stretched". But cannot tell me when and states she does not follow with GI. She states she does not frequently get heartburn or reflux and is uncertain if she takes any stomach medications. She denies any recent illness or URI symptoms. She denies any current chest pain or abdominal pain. PAST MEDICAL HISTORY:See Below PAST SURGICAL HISTORY:See Below FAMILY HISTORY:See Below SOCIAL HISTORY:See Below HOME MEDICATIONS:See Below ALLERGIES:See Below VITALS:See Below PHYSICAL EXAMINATION: GENERAL: alert, well appearing, well nourished, no distress, non-toxic EYE EXAM: normal conjunctiva, PERRL and EOM's grossly intact OROPHARYNX: no exudate, no erythema, lips, buccal mucosa, and tongue normal and mucous membranes are moist NECK: supple, no nuchal rigidity, no adenopathy, non-tender, no stridor LUNGS: Clear to auscultation. Normal chest wall mechanics, no w/r/r HEART: no murmurs, S1 normal and S2 normal ABDOMEN: abdomen soft, non-tender, normo-active bowel sounds, no masses, no rebound or guarding. SKIN: no rashes, petechiae, orbruising UPPER EXTREMITIES: upper extremities are grossly normal. FROM, nml pulses b/l. LOWER EXTREMITIES: No pitting edema. FROM, nml pulses b/l. NEURO EXAM: Normal sensorium, cranial nerves II-XII grossly intact, normal speech, no facial droop,nogross weakness of arms, no gross weakness of legs. Gross sensation intact. No ataxia. Vital Signs: reviewed and remarkable Differential Diagnosis: Choking, aspiration, esophageal foreign body, pharyngitis, deep space infection, reflux, esophageal spasm, esophageal stricture, pneumonia, dissection, as well as others were considered MEDICAL DECISION MAKING: This is an 88-year-old female who presents emergency department due to concern for episode of choking. Patient afebrile and vital signs stable on arrival. Labs drawn and sent, IV established, EKG and chest ray performed bedside interpreted by me and patient monitored on telemetry. Patient denied any sore throat, chest pain, difficulty breathing. Labs and imaging reassuring. No obvious evidence for aspiration although that can take time to evolve that it is present on radiographic studies. As patient reported feeling well we attempted a p.o. challenge at bedside and patient failed this. I suspect she is at risk for dysphagia and aspiration, although etiology of this is unknown. I suspect she may benefit from GI evaluation and repeat endoscopy given the reported prior history of esophageal stricture. Patient was given IV Pepcid, IV Protonix, and started on gentle IV fluid hydration. Case discussed with the hospitalist team for additional evaluation and management. Consultation(s): 1305: Discussed with Germán Young hospitalist team, for additional evaluation and management. ER Treatment Provided: See below Diagnostics Interpreted By Me: -ECG: Normal sinus at 97, normal axis, normal intervals, no acute ST/T wave changes -Cardiac Monitoring: An order was placed for continuous cardiac monitoring. The monitor shows a rate of 60 with normal sinus rhythm. -Laboratory studies: As stated above and show below. -Imaging studies: X-ray Chest: A single view study of the chest was reviewed and was negative for cardiomegaly, focal infiltrate, effusion, pulmonary edema, or wide mediastinum. 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 (Acute) Ulcer of right lower extremity (Acute) Ulcer of left lower extremity (Acute) Skin lesion of left leg (Acute) Abnormal ankle brachial index (MINDY) (Acute) Lower extremity edema (Chronic) CKD (chronic kidney disease), stage III Hypothyroidism Basal cell carcinoma of lower leg (Acute) Open wound of right lower leg (Acute) Altered mental status (Acute) Hypomagnesemia (Acute) Weakness (Acute) Acute UTI (Acute) Hypomagnesemia History of breast cancer GERD (gastroesophageal reflux disease) Embolic stroke Altered mental state Medical History (Updated 11/12/23 @ 10:55 by Emir Pretty MD) History of esophageal stricture CKD (chronic kidney disease) Hypothyroidism (acquired) Hypertension Diabetes Vitamin D deficiency SCC (squamous cell carcinoma) Right hand Gout Generalized osteoarthritis Dyslipidemia CVA (cerebral vascular accident) Breast cancer, right BCC (basal cell carcinoma of skin) Nose, left eye brow Bakers cyst Actinic keratosis Osteoarthritis Surgical History Status post right breast lumpectomy Family History Father Cancer Social History Smoking Status: Never smoker Second Hand Exposure: No; Hx Alcohol Use: No Hx Substance Use: No Preferred Language: Greenlandic Communication Ability: Effective Visual Impairment: Limited Hearing Ability: Hard of Hearing 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 Beliefs That Will Affect Care: None Current Living Situation: Personal Care Facility [facility] current occupational status: retired How many Children do You have: 3 Other Information That Helps Us Care for You: No Feels Safe at Home: Yes Safety Concerns: Feels Safe At This Time Childhood Exposure to Second-Hand Smoke: No Diet: regular caffeine: Yes Physical Activity Frequency: Does not Exercise Do you think of yourself as: straight/heterosexual Assistive Devices: Wheelchair Allergies Allergies Allergy/AdvReac Type Severity Reaction Status Date / Time bacitracin Allergy Unknown Verified 11/11/23 12:38 clindamycin Allergy Unknown Verified 11/11/23 12:38 diltiazem [From Cardizem] Allergy Unknown Verified 11/11/23 12:38 NSAIDS (Non-Steroidal Allergy Unknown Verified 11/11/23 12:38 Anti-Inflamma Penicillins Allergy Unknown Verified 11/11/23 12:38 Sulfa (Sulfonamide Allergy Unknown Verified 11/11/23 12:38 Antibiotics) Home Meds Home Medications Medication Instructions Recorded Confirmed anastrozole 1 mg tablet 1 mg PO DAILY 05/06/22 11/11/23 aspirin 81 mg chewable tablet 81 mg PO DAILY 05/06/22 11/11/23 (Aspirin Childrens) atorvastatin 80 mg tablet 80 mg PO DAILY 05/06/22 11/11/23 clopidogrel 75 mg tablet 75 mg PO DAILY 05/06/22 11/11/23 coenzyme Q10 100 mg capsule (Co 100 mg PO DAILY 05/06/22 11/11/23 Q-10) diphenhydramine HCl 25 mg tablet 25 mg PO Q8 PRN Itching 05/06/22 11/11/23 ferrous sulfate 325 mg (65 mg 325 mg PO DAILY 05/06/22 11/11/23 iron) tablet glucosamine-chondroitin 250 mg-200 1 tab PO DAILY 05/06/22 11/11/23 mg tablet (Osteo Bi-Flex) insulin aspart U-100 100 unit/mL 1 sliding scale dose subcut AC 05/06/22 11/11/23 (3 mL) subcutaneous pen (Novolog FlexPen U-100 Insulin aspart) loratadine 10 mg tablet 10 mg PO DAILY 05/06/22 11/11/23 metformin 500 mg tablet 500 mg PO BIDWMEAL 05/06/22 11/11/23 nystatin 100,000 unit/gram topical 1 applic topical TID 05/06/22 11/11/23 powder potassium chloride 10 mEq 10 meq PO TID 05/06/22 11/11/23 tablet,extended release acetaminophen 325 mg tablet 650 mg PO Q4 PRN Pain 01/25/23 11/11/23 glipizide 10 mg tablet, extended 10 mg PO DAILY 01/25/23 11/11/23 release 24 hr lutein 25 mg-zeaxanthin 5 mg 1 cap PO DAILY 01/25/23 11/11/23 capsule (Ocuvite Lutein) hydrocortisone 2.5 % topical cream 1 applic topical BID PRN Itching 03/18/23 11/11/23 insulin glargine 100 unit/mL (3 50 unit subcut HS 03/18/23 11/11/23 mL) subcutaneous pen (Lantus Solostar U-100 Insulin) levothyroxine 175 mcg capsule 175 mcg PO DAILY 05/27/23 11/11/23 omeprazole 20 mg capsule,delayed 20 mg PO DAILY 05/27/23 11/11/23 release amlodipine 2.5 mg tablet 2.5 mg PO DAILY 11/11/23 11/11/23 benzonatate 200 mg capsule 200 mg PO TID PRN Cough 11/11/23 11/11/23 kadjsboyszxxfert-rvbwzkszdokji-WL 10 ml PO Q4 PRN Cough 11/11/23 11/11/23 2 mg-5 mg-10 mg/5 mL oral liquid guaifenesin 600 mg tablet, 600 mg PO BID PRN Congestion 11/11/23 11/11/23 extended release 12 hr loperamide 2 mg capsule 2 mg PO Q4 PRN Diarrhea 11/11/23 11/11/23 nystatin 100,000 unit/gram topical 1 applic topical BID 11/11/23 11/11/23 cream Previous Rx's Medication Instructions Recorded magnesium oxide 400 mg PO BID #60 tabs 05/08/22 Results & Data (ED) Vital Signs Vital Signs - 24 hr 11/11/23 10:33 11/11/23 10:33 11/11/23 11:11 Temperature 36.7 C Temperature Source Oral Pulse Rate 100 H 97 H Pulse Rate [Apical] Pulse Rate from SpO2 Sensor 97 H Respiratory Rate 17 21 Blood Pressure 116/78 Blood Pressure [Left Arm] Blood Pressure Mean 90 Blood Pressure Mean [Left Arm] Pulse Oximetry 92 97 Oxygen Delivery Method Room Air Room Air Room Air Sepsis New/Unexplained Change in Mental Status No Sepsis Action Taken by Nursing No Action Required 11/11/23 11:11 11/11/23 11:30 11/11/23 11:30 Temperature Temperature Source Pulse Rate 98 H Pulse Rate [Apical] Pulse Rate from SpO2 Sensor 98 H Respiratory Rate 23 Blood Pressure 151/84 H 151/82 H Blood Pressure [Left Arm] Blood Pressure Mean 104 113 Blood Pressure Mean [Left Arm] Pulse Oximetry 97 Oxygen Delivery Method Room Air Sepsis New/Unexplained Change in Mental Status Sepsis Action Taken by Nursing 11/11/23 12:18 11/11/23 12:33 Temperature Temperature Source Pulse Rate 97 H Pulse Rate [Apical] 62 Pulse Rate from SpO2 Sensor Respiratory Rate 18 Blood Pressure Blood Pressure [Left Arm] 165/89 H Blood Pressure Mean Blood Pressure Mean [Left Arm] 114 Pulse Oximetry 97 Oxygen Delivery Method Sepsis New/Unexplained Change in Mental Status Sepsis Action Taken by Nursing Laboratory Data 11/12/23 06:24 11/12/23 06:24 Lab Results 11/11/23 11/11/23 Range/Units 11:08 12:50 WBC 6.64 (4.8-10.8) K/ul RBC 4.23 (4.20-5.40) M/uL Hgb 12.3 (12.0-16.0) g/dl Hct 37.4 (37.0-47.0) % MCV 88.4 (80.0-100.0) fL MCH 29.1 (25.0-34.0) pg MCHC 32.9 (32.0-36.0) g/dL RDW Std Deviation 45.9 (36.4-46.3) fL RDW Coeff of Zaid 14.3 (11.5-14.5) % Plt Count 194 (130-400) K/uL MPV 11.6 (9.4-12.4) fL Immature Gran % (Auto) 1.2 % Neut % (Auto) 72.7 % Lymph % (Auto) 13.9 % [place] % (Auto) 7.2 % Eos % (Auto) 3.8 % Baso % (Auto) 1.2 % Neut # (Auto) 4.83 (1.40-6.50) K/uL Lymph # (Auto) 0.92 L (1.20-3.40) K/uL [place] # (Auto) 0.48 (0.11-0.59) K/uL Eos # (Auto) 0.25 (0.00-0.50) K/uL Baso # (Auto) 0.08 (0.00-0.20) K/uL Immature Gran # (Auto) 0.08 (0.01-0.20) K/uL PT 11.4 (9.0-12.0) Seconds INR 1.1 (0.9-1.1) Sodium 136 (136-145) mmol/L Potassium 4.5 (3.5-5.1) mmol/L Chloride 101 (98-107) mmol/L Carbon Dioxide 26 (21-32) mmol/L Anion Gap 9 (3-11) BUN 19 (6-23) mg/dl Creatinine 1.41 H (0.6-1.2) mg/dl Est Cr Clr Drug Dosing 35.1 ml/min Est GFR ( Amer) 38.2 ml/min Est GFR (Non-Af Amer) 32.9 ml/min BUN/Creatinine Ratio 13.5 (10-20) Glucose 229 H (70-99(Fasting)) mg/dl Calcium 9.7 (8.6-10.3) mg/dl Magnesium 1.7 (1.7-2.4) mg/dl Total Bilirubin 0.8 (0.2-1.0) mg/dl AST 31 (13-39) U/L ALT 22 (7-52) U/L Alkaline Phosphatase 118 H (34-104) U/L Troponin I High Sens 17.9 H (0-14) pg/ml Total Protein 7.5 (6.0-8.3) gm/dl Albumin 3.8 (3.4-5.0) gm/dl Globulin 3.7 (2.5-4.0) gm/dl Albumin/Globulin Ratio 1.0 (0.9-2) Lipase 7 L (11-82) U/L TSH 1.595 (0.300-4.500) uIu/ml SARS-CoV-2, RNA, NAAT NEGATIVE (NEGATIVE) Administered Medications Clopidogrel Bisulfate (Clopidogrel Bisulfate 75 Mg Tab) 75 mg PO DAILY JOSUÉ Stop: 12/12/23 08:59 Last Admin: 11/12/23 10:11 Dose: Not Given Documented By: MEMO Enoxaparin Sodium (Enoxaparin Inj 40 Mg/0.4 Ml Syr) 40 mg SQ Q24H JOSUÉ Stop: 12/11/23 18:29 Last Admin: 11/11/23 19:50 Dose: 40 mg Documented By: CARYN Lactated Ringer's (Lr) 1,000 mls @ 75 mls/hr IV .[id number] JOSUÉ Stop: 12/11/23 18:19 Last Infusion: 11/12/23 14:17 Dose: 75 mls/hr Documented By: Infusion: 11/12/23 11:42 Dose: 0 mls/hr Documented By: Admin: 11/12/23 07:19 Dose: 75 mls/hr Documented By: Infusion: 11/12/23 07:19 Dose: Infused Documented By: Infusion: 11/12/23 06:38 Dose: 75 mls/hr Documented By: Admin: 11/11/23 18:40 Dose: 75 mls/hr Documented By: SABINA Famotidine (Pepcid 20mg Iv Push) 20 mg in 5 mls @ 2.5 mls/min IV Q12H JOSUÉ Stop: 12/12/23 00:00 Last Admin: 11/12/23 14:33 Dose: 2.5 mls/min Documented By: Admin: 11/12/23 00:27 Dose: 2.5 mls/min Documented By: SAUNDRA Sodium Chloride (Nss) 500 mls @ 15 mls/hr IV .Q24H JOSUÉ Stop: 11/13/23 07:29 Last Admin: 11/12/23 11:54 Dose: 15 mls/hr Documented By: JUNIOR Insulin Aspart (Insulin Aspart Per Unit Charge) 0 units SC Q6 JOSUÉ Stop: 12/12/23 00:00 Last Admin: 11/12/23 14:17 Dose: Not Given Documented By: MEMO Co-signed By: ARTURO Admin: 11/12/23 06:25 Dose: Not Given Documented By: CARYN Co-signed By: JAIME Admin: 11/12/23 00:15 Dose: Not Given Documented By: SAUNDRA Co-signed By: JOSE ALEJANDRO Insulin Glargine (Lantus Per Unit Charge) 10 units SQ HS JOSUÉ Stop: 12/11/23 20:59 Last Admin: 11/11/23 20:42 Dose: 10 units Documented By: CARYN Co-signed By: SAUNDRA Levothyroxine Sodium (Levothyroxine Sodium 175 Mcg Tablet) 175 mcg PO DAILYBB JOSUÉ Stop: 12/12/23 06:29 Last Admin: 11/12/23 05:45 Dose: Not Given Documented By: CARYN Discontinued Medications Sodium Chloride (Nss) 500 mls @ 125 mls/hr IV .Q4H JOSUÉ Stop: 12/11/23 10:59 Last Infusion: 11/11/23 18:36 Dose: Infused Documented By: Admin: 11/11/23 15:45 Dose: 125 mls/hr Documented By: Infusion: 11/11/23 15:43 Dose: Infused Documented By: Admin: 11/11/23 11:05 Dose: 125 mls/hr Documented By: REGINO Famotidine (Pepcid 20mg Iv Push) 20 mg in 5 mls @ 2.5 mls/min IV NOW STA Stop: 11/11/23 11:49 Last Admin: 11/11/23 12:21 Dose: 2.5 mls/min Documented By: MARY Pantoprazole Sodium 40 mg/ (Syringe) 10 mls @ 5 mls/min IV NOW ONE Stop: 11/11/23 11:49 Last Admin: 11/11/23 13:28 Dose: 5 mls/min Documented By: REGINO Insulin Aspart (Insulin Aspart Per Unit Charge) 0 units SC ACHS JOSUÉ Stop: 12/11/23 18:19 Last Admin: 11/11/23 18:45 Dose: 2 units Documented By: ANNAMARIA Co-signed By: SAUNDRA Lidocaine HCl (Lidocaine 2% 2 Ml Vial/Amp(20mg/Ml)) Confirm Administered Dose 4 ml INFIL .STK-MED ONE Stop: 11/12/23 12:38 Last Admin: 11/12/23 14:17 Dose: Not Given Documented By: MEMO Propofol (Propofol Iv Emulsion 10 Mg/Ml 20 Ml Vial) Confirm Administered Dose 200 mg IV .STK-MED ONE Stop: 11/12/23 12:38 Last Admin: 11/12/23 14:17 Dose: Not Given Documented By: MEMO Imaging Data Radiologist's Impression: Chest X-Ray 11/11/23 10:47 XR chest 1V portable CLINICAL HISTORY: episode of choking TECHNIQUE: Single frontal radiograph of the chest was obtained. Comparison: Comparison is made to chest radiograph 05/06/2022 FINDINGS: No lines and tubes are seen. Cardiomegaly is noted. The aortic arch is calcified. The lungs are clear. No evidence of pleural effusion or pneumothorax. IMPRESSION: No acute chest disease. ACT 112: Negative or not required by law. Electronically signed by: Eulogio Diehl M.D. 11/11/2023 11:47 AM Discharge Plan Visit Data Chief Complaint: Illness Stated Complaint: POSSIBLE CHOKING, ED Provider: Tamar Najera Discharge Problem: Choking episode Patient Disposition: Admitted As Inpatient Discharge Instructions Interventions: ED Discharge Assessment Last Done: 11/11/23 17:55
[2023-11-11] MEDS: SODIUM CHLORIDE 0.9% 500 ML IV SCH (11:05)
[2023-11-11 11:27] LABS: Basophils # (auto) 0.08 K/uL (0.00-0.20); Basophils % (auto) 1.2 %; Eosinophils # (auto) 0.25 K/uL (0.00-0.50); Eosinophils % (auto) 3.8 %; Hematocrit (blood only) 37.4 % (37.0-47.0); Hemoglobin 12.3 g/dl (12.0-16.0); Immature Granulocytes # (auto) 0.08 K/uL (0.01-0.20); Immature Granulocytes % (auto) 1.2 %; Lymphocytes # (auto) 0.92 K/uL (1.20-3.40); Lymphocytes % (auto) 13.9 %; Mean Corpuscular Hemoglobin 29.1 pg (25.0-34.0); Mean Corpuscular Hgb Conc 32.9 g/dL (32.0-36.0); Mean Corpuscular Volume 88.4 fL (80.0-100.0); Mean Platelet Volume 11.6 fL (9.4-12.4); Monocytes # (auto) 0.48 K/uL (0.11-0.59); Monocytes % (auto) 7.2 %; Neutrophils # (auto) 4.83 K/uL (1.40-6.50); Neutrophils % (auto) 72.7 %; Platelet Count 194 K/uL (130-400); RDW Coefficient of Variation 14.3 % (11.5-14.5); RDW Standard Deviation 45.9 fL (36.4-46.3); Red Blood Count 4.23 M/uL (4.20-5.40); White Blood Count 6.64 K/ul (4.8-10.8)
[2023-11-11 11:43] LABS: Albumin Level 3.8 gm/dl (3.4-5.0); BUN Creatinine Ratio 13.5 (10-20); Bilirubin,Total 0.8 mg/dl (0.2-1.0); Calcium 9.7 mg/dl (8.6-10.3); Creatinine Clr Calc Pharmacy 35.1 ml/min; Est GFR (African American) 38.2 ml/min; Est GFR (Non-African American) 32.9 ml/min; Globulin 3.7 gm/dl (2.5-4.0); Magnesium 1.7 mg/dl (1.7-2.4); Potassium 4.5 mmol/L (3.5-5.1); Total Protein 7.5 gm/dl (6.0-8.3)
[2023-11-11 11:46] LABS: Troponin I High Sensitivity 17.9 pg/ml (0-14)
--- NOTE | 2023-11-11 11:48 | XRay Report ---
XR chest 1V portable CLINICAL HISTORY: episode of choking TECHNIQUE: Single frontal radiograph of the chest was obtained. Comparison: Comparison is made to chest radiograph 05/06/2022 FINDINGS: No lines and tubes are seen. Cardiomegaly is noted. The aortic arch is calcified. The lungs are clear . No evidence of pleural effusion or pneumothorax. IMPRESSION: No acute chest disease. ACT 112: Negative or not required by law. Electronically signed by: Eulogio Diehl M.D. 11/11/2023 11:47 AM
[2023-11-11 11:52] LABS: Thyroid Stimulating Hormone 1.595 uIu/ml (0.300-4.500)
[2023-11-11 12:00] LABS: INR 1.1 (0.9-1.1); Prothrombin Time 11.4 Seconds (9.0-12.0)
[2023-11-11] MEDS: FAMOTIDINE 20MG IV PUSH 20 MG/5 ML SYR IV STA (12:21)
[2023-11-11] MEDS: PANTOprazole 40 MG in SYRINGE 0 ML IV ONE (13:28)
--- NOTE | 2023-11-11 13:53 | History & Physical Report ---
Date of Service November 11, 2023 Assessment & Plan (1) Encounter for observation for suspected aspirated (inhaled) foreign body ruled out: Plan: Patient 88-year-old female with suspected choking episode at assisted living with possible aspiration. History of esophageal stricture that required dilatation in the past. Patient is a high risk for aspiration. Patient also unable to safely swallow and will need care for in the hospital including specialty consultation and IV hydration. Maintain n.p.o. 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 She reports that she was able to eat a good bit of her breakfast but then suddenly was unable to swallow. Staff at the home checked on her and noted that she was hypoxic with a reported O2 sat in the 60s. EMS was called. When EMS arrived she was saturating adequately. But was brought to the emergency room for evaluation. In the emergency room laboratory studies were unremarkable for acute findings. Chest x-ray did not show any definitive infiltrate. She was saturating well on room air. However, when they attempted a swallowing screen patient was unable to swallow effectively. Due to these findings she was referred for further evaluation. At time of my evaluation the patient states that she is hungry and feels as though she could swallow. She does report a history of a somewhat similar episode a few weeks ago. She did not seek medical attention at that time. She reports that she was taken into the bathroom and t old to inhale steam from the hot water that was running. She reports several years ago she had difficulties managing her secretions and she was having episodes of emesis every time she ate. She was discovered to have an esophageal stricture and underwent EGD with esophageal dilatation in 2019. She states that ever since then she has not had any problem with her swallowing up until the past few weeks. She states that she does need to eat slow but she eats normal consistency food and has not had to have a modified diet. Otherwise she states that she has been doing really well. Daughter is at the bedside states that she has been doing well at this home as well. She denies any chest pain she denies any shortness of breath. She states that her bowels and bladder have been working well as she states that she has been having good appetite. No fevers or chills. She does see wound routinely she has had some skin cancers on her lower extremities and is being managed regularly by the wound clinic. Allergies Allergy/AdvReac Type Severity Reaction Status Date / Time bacitracin Allergy Unknown Verified 11/11/23 12:38 clindamycin Allergy Unknown Verified 11/11/23 12:38 diltiazem [From Cardizem] Allergy Unknown Verified 11/11/23 12:38 NSAIDS (Non-Steroidal Allergy Unknown Verified 11/11/23 12:38 Anti-Inflamma Penicillins Allergy Unknown Verified 11/11/23 12:38 Sulfa (Sulfonamide Allergy Unknown Verified 11/11/23 12:38 Antibiotics) Home Medications Medication Instructions Recorded Confirmed Type anastrozole 1 mg tablet 1 mg PO DAILY 05/06/22 11/11/23 History aspirin 81 mg chewable tablet 81 mg PO DAILY 05/06/22 11/11/23 History (Aspirin Childrens) atorvastatin 80 mg tablet 80 mg PO DAILY 05/06/22 11/11/23 History clopidogrel 75 mg tablet 75 mg PO DAILY 05/06/22 11/11/23 History coenzyme Q10 100 mg capsule (Co 100 mg PO DAILY 05/06/22 11/11/23 History Q-10) diphenhydramine HCl 25 mg tablet 25 mg PO Q8 PRN Itching 05/06/22 11/11/23 History ferrous sulfate 325 mg (65 mg 325 mg PO DAILY 05/06/22 11/11/23 History iron) tablet glucosamine-chondroitin 250 mg-200 1 tab PO DAILY 05/06/22 11/11/23 History mg tablet (Osteo Bi-Flex) insulin aspart U-100 100 unit/mL 1 sliding scale dose subcut AC 05/06/22 11/11/23 History (3 mL) subcutaneous pen (Novolog FlexPen U-100 Insulin aspart) loratadine 10 mg tablet 10 mg PO DAILY 05/06/22 11/11/23 History metformin 500 mg tablet 500 mg PO BIDWMEAL 05/06/22 11/11/23 History multivitamin (Daily-Kamilla tablet) 1 tab PO DAILY 05/06/22 11/01/23 History nystatin 100,000 unit/gram topical 1 applic topical TID 05/06/22 11/11/23 History powder potassium chloride 10 mEq 10 meq PO TID 05/06/22 11/11/23 History tablet,extended release magnesium oxide 400 mg PO BID #60 tabs 05/08/22 11/11/23 Rx acetaminophen 325 mg tablet 650 mg PO Q4 PRN Pain 01/25/23 11/11/23 History glipizide 10 mg tablet, extended 10 mg PO DAILY 01/25/23 11/11/23 History release 24 hr lutein 25 mg-zeaxanthin 5 mg 1 cap PO DAILY 01/25/23 11/11/23 History capsule (Ocuvite Lutein) famotidine 20 mg tablet 20 mg PO BID 03/18/23 11/01/23 History hydrocortisone 2.5 % topical cream 1 applic topical BID PRN Itching 03/18/23 11/11/23 History insulin glargine 100 unit/mL (3 50 unit subcut HS 03/18/23 11/11/23 History mL) subcutaneous pen (Lantus Solostar U-100 Insulin) lisinopril 20 mg tablet 10 mg PO DAILY 03/18/23 11/01/23 History omega-3 fatty acids 1,000 mg 2,000 mg PO DAILY 03/18/23 11/01/23 History capsule levothyroxine 175 mcg capsule 175 mcg PO DAILY 05/27/23 11/11/23 History omeprazole 20 mg capsule,delayed 20 mg PO DAILY 05/27/23 11/11/23 History release amlodipine 2.5 mg tablet 2.5 mg PO DAILY 11/11/23 11/11/23 History benzonatate 200 mg capsule 200 mg PO TID PRN Cough 11/11/23 11/11/23 History kwbxporzswwcdxai-xsvtflalghdyw-PM 10 ml PO Q4 PRN Cough 11/11/23 11/11/23 History 2 mg-5 mg-10 mg/5 mL oral liquid guaifenesin 600 mg tablet, 600 mg PO BID PRN Congestion 11/11/23 11/11/23 History extended release 12 hr loperamide 2 mg capsule 2 mg PO Q4 PRN Diarrhea 11/11/23 11/11/23 History nystatin 100,000 unit/gram topical 1 applic topical BID 11/11/23 11/11/23 History cream Past Med/Surg History Problem List Esophageal spasm History of esophageal stricture Encounter for observation for suspected aspirated (inhaled) foreign body ruled out Dysphagia Choking episode (Acute) 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 (Acute) Ulcer of right lower extremity (Acute) Ulcer of left lower extremity (Acute) Skin lesion of left leg (Acute) Abnormal ankle brachial index (MINDY) (Acute) Lower extremity edema (Chronic) CKD (chronic kidney disease), stage III Hypothyroidism Basal cell carcinoma of lower leg (Acute) Open wound of right lower leg (Acute) CKD (chronic kidney disease) Altered mental status (Acute) Hypomagnesemia (Acute) Weakness (Acute) Acute UTI (Acute) Hypomagnesemia History of breast cancer GERD (gastroesophageal reflux disease) Embolic stroke Diabetes Hypertension Hypothyroidism (acquired) Altered mental state Medical History Vitamin D deficiency SCC (squamous cell carcinoma) Right hand Gout Generalized osteoarthritis Dyslipidemia CVA (cerebral vascular accident) Breast cancer, right BCC (basal cell carcinoma of skin) Nose, left eye brow Bakers cyst Actinic keratosis Osteoarthritis Surgical History Status post right breast lumpectomy Family History Father Cancer Social History Smoking Status: Never smoker Second Hand Exposure: No; Hx Alcohol Use: No Hx Substance Use: No Preferred Language: Bengali Communication Ability: Effective Visual Impairment: Limited Hearing Ability: Hard of Hearing Copy Chief Required: No Beliefs That Will Affect Care: None Current Living Situation: Correction Current Living Situation Comment: [facility] current occupational status: retired How many Children do You have: 3 Feels Safe at Home: Yes Childhood Exposure to Second-Hand Smoke: No Diet: regular caffeine: Yes Physical Activity Frequency: Does not Exercise Do you think of yourself as: straight/heterosexual Assistive Devices: Glasses, Walker and Wheelchair Review of Systems Review of Systems: Pertinent positive and negative review of systems as mentioned in the HPI Physical Exam Physical Exam: Constitutional: Alert, not ill in appearance, nontoxic HEENT: Mucous membranes moist. Sclera clear, does seem as though she is retaining some oral secretions Neck: Soft, no adenopathy Lungs: Clear to auscultation, decreased, no wheezes, a few rhonchi CV: S1-S2, regular Abdomen: Soft, nontender, nondistended Extremities: Tubigrip compression stockings on bilateral lower extremities with bandages underneath Musculoskeletal: No significant joint tenderness Neuro: No focal deficits, generalized weakness Psych: Cooperative, normal mood Results & Data Results & Data Vital Signs (Past 12 Hours) Vital Signs Temp Pulse Pulse Resp BP BP Pulse Ox 11/11/23 12:33 62 18 165/89 H 97 11/11/23 12:18 97 H 11/11/23 11:30 151/82 H 11/11/23 11:30 98 H 23 97 11/11/23 11:11 151/84 H 11/11/23 11:11 97 H 21 97 11/11/23 10:33 11/11/23 10:33 36.7 C 100 H 17 116/78 92 O2 Del Method 11/11/23 12:33 11/11/23 12:18 11/11/23 11:30 11/11/23 11:30 Room Air 11/11/23 11:11 11/11/23 11:11 Room Air 11/11/23 10:33 Room Air 11/11/23 10:33 Room Air Laboratory Results Reviewed imaging, laboratory and diagnostic studies. Pertinent findings as below. Personally reviewed chest x-ray, no evidence of edema or consolidative infiltrate Creatinine 1.4, baseline Glucose 229 Troponin 17.9 EKG personally reviewed, sinus rhythm no acute ST-T wave changes COVID-negative Code Status & VTE Plan VTE Prophylaxis Plan VTE Prophylaxis will be ordered: Yes
--- NOTE | 2023-11-11 14:26 | Electrocardiogram Report ---
Test Reason : Blood Pressure : / mmHG Vent. Rate : 097 BPM Atrial Rate : 097 BPM P-R Int : 170 ms QRS Dur : 084 ms QT Int : 368 ms P-R-T Axes : 048 020 090 degrees QTc Int : 467 ms Poor data quality, interpretation may be adversely affected Normal sinus rhythm Low voltage QRS Borderline ECG When compared with ECG of 06-MAY-2022 17:29, No significant change was found Confirmed by Carlos Terry ([id number]) on 11/11/2023 2:26:34 PM Referred By: Pending Sale To [facility] Confirmed By:Sanjay Terry
[2023-11-11] MEDS ORDERED: GLUCAGON FOR INJ 1 MG VIAL SQ PRN (18:20)
[2023-11-11] MEDS ORDERED: DEXTROSE 50% 50 ML SYRINGE IV PRN (18:20)
[2023-11-11] MEDS ORDERED: ACETAMINOPHEN 325 MG TAB PO PRN (18:20)
[2023-11-11] MEDS ORDERED: GLUCOSE 40% GEL 15 GM TUBE PO PRN (18:20)
[2023-11-11] MEDS ORDERED: GLUCOSE 10 TAB/TUBE PO PRN (18:20)
[2023-11-11] MEDS ORDERED: ONDANSETRON INJ 2 MG/ML 2 ML VIAL IV PRN (18:20)
[2023-11-11] MEDS ORDERED: CARBOHYDRATES FOR HYPOGLYCEMIA PO PRN (18:20)
[2023-11-11] MEDS ORDERED: ALBUT/IPRATROP 3MG/0.5MG NEB 3 ML VIAL NEB PRN (18:20)
[2023-11-11] MEDS: LACTATED RINGER'S 1,000 ML IV SCH (18:40)
[2023-11-11] MEDS: INSULIN ASPART PER UNIT CHARGE SC SCH (18:45)
[2023-11-11] MEDS ORDERED: Nursing to Pharmacy Communication SCH (19:15)
[2023-11-11] MEDS: ENOXAPARIN INJ 40 MG/0.4 ML SYR SQ SCH (19:50)
[2023-11-11] MEDS: LANTUS PER UNIT CHARGE SQ SCH (20:42)
[2023-11-12] MEDS: INSULIN ASPART PER UNIT CHARGE SC SCH ×2 (00:15→18:05)
[2023-11-12] MEDS: FAMOTIDINE 20MG IV PUSH 20 MG/5 ML SYR IV SCH (00:27)
[2023-11-12] MEDS: LEVOTHYROXINE SODIUM 175 MCG TABLET PO SCH (05:45)
[2023-11-12 06:59] LABS: Hematocrit (blood only) 35.5 % (37.0-47.0); Hemoglobin 11.6 g/dl (12.0-16.0); Mean Corpuscular Hemoglobin 28.7 pg (25.0-34.0); Mean Corpuscular Hgb Conc 32.7 g/dL (32.0-36.0); Mean Corpuscular Volume 87.9 fL (80.0-100.0); Mean Platelet Volume 11.5 fL (9.4-12.4); Platelet Count 188 K/uL (130-400); RDW Coefficient of Variation 14.3 % (11.5-14.5); RDW Standard Deviation 45.8 fL (36.4-46.3); Red Blood Count 4.04 M/uL (4.20-5.40); White Blood Count 5.08 K/ul (4.8-10.8)
[2023-11-12 07:20] LABS: BUN Creatinine Ratio 13.4 (10-20); Creatinine Clr Calc Pharmacy 38.1 ml/min; Est GFR (African American) 43.3 ml/min; Est GFR (Non-African American) 37.4 ml/min; Potassium 3.7 mmol/L (3.5-5.1)
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
--- NOTE | 2023-11-12 09:33 | Gastrointestinal Consultation ---
Date of Consultation November 12, 2023 Assessment & Plan (1) History of esophageal stricture: (2) Dysphagia: Plan Patient is an 88 year old female admitted after recent choking episode. she admits to past history of dysphagia. She reports a history of esophageal stricture that had been dilation in the past. she is agreeable to having this done again. she has been NPO. - set up EGD with dilation for today. - continue with famotidine 20mg IV bid. Supervising Physician Co-Signing Physician Notes Agree with JANICE Spain as above Interviewed and examined patient and agree with above Abd: Soft, NT, ND, +BS Continue current therapy and supportive care Proceed with EGD now. History of Present Illness Reason for Consultation: history of esophageal stricture, choking Requesting Physician: Rafat Saul DO Attending Physician: Sarahi English MD History of Present Illness Patient 88 year old female with suspected choking episode at [facility] living with possible aspiration was brought to the hospital for evaluation. She tells me she has a history of an esophageal stricture that required dilatation in the past. she tells me that dilation was helpful in the past. She tells me her last EGD was done in 2019 at [facility] - I do not have these records. she tells me that she has had some dysphagia for sometime but no episodes as bad as she had with this recent episode. she denies any nausea, vomiting, heartburn, abdominal pain, change in bowels, melena, or brbpr. Xray 11/11/23 no acute findings. Allergies Allergy/AdvReac Type Severity Reaction Status Date / Time bacitracin Allergy Unknown Verified 11/11/23 12:38 clindamycin Allergy Unknown Verified 11/11/23 12:38 diltiazem [From Cardizem] Allergy Unknown Verified 11/11/23 12:38 NSAIDS (Non-Steroidal Allergy Unknown Verified 11/11/23 12:38 Anti-Inflamma Penicillins Allergy Unknown Verified 11/11/23 12:38 Sulfa (Sulfonamide Allergy Unknown Verified 11/11/23 12:38 Antibiotics) Home Medications Medication Instructions Recorded Confirmed Type anastrozole 1 mg tablet 1 mg PO DAILY 05/06/22 11/11/23 History aspirin 81 mg chewable tablet 81 mg PO DAILY 05/06/22 11/11/23 History (Aspirin Childrens) atorvastatin 80 mg tablet 80 mg PO DAILY 05/06/22 11/11/23 History clopidogrel 75 mg tablet 75 mg PO DAILY 05/06/22 11/11/23 History coenzyme Q10 100 mg capsule (Co 100 mg PO DAILY 05/06/22 11/11/23 History Q-10) diphenhydramine HCl 25 mg tablet 25 mg PO Q8 PRN Itching 05/06/22 11/11/23 History ferrous sulfate 325 mg (65 mg 325 mg PO DAILY 05/06/22 11/11/23 History iron) tablet glucosamine-chondroitin 250 mg-200 1 tab PO DAILY 05/06/22 11/11/23 History mg tablet (Osteo Bi-Flex) insulin aspart U-100 100 unit/mL 1 sliding scale dose subcut AC 05/06/22 11/11/23 History (3 mL) subcutaneous pen (Novolog FlexPen U-100 Insulin aspart) loratadine 10 mg tablet 10 mg PO DAILY 05/06/22 11/11/23 History metformin 500 mg tablet 500 mg PO BIDWMEAL 05/06/22 11/11/23 History nystatin 100,000 unit/gram topical 1 applic topical TID 05/06/22 11/11/23 History powder potassium chloride 10 mEq 10 meq PO TID 05/06/22 11/11/23 History tablet,extended release magnesium oxide 400 mg PO BID #60 tabs 05/08/22 11/11/23 Rx acetaminophen 325 mg tablet 650 mg PO Q4 PRN Pain 01/25/23 11/11/23 History glipizide 10 mg tablet, extended 10 mg PO DAILY 01/25/23 11/11/23 History release 24 hr lutein 25 mg-zeaxanthin 5 mg 1 cap PO DAILY 01/25/23 11/11/23 History capsule (Ocuvite Lutein) hydrocortisone 2.5 % topical cream 1 applic topical BID PRN Itching 03/18/23 11/11/23 History insulin glargine 100 unit/mL (3 50 unit subcut HS 03/18/23 11/11/23 History mL) subcutaneous pen (Lantus Solostar U-100 Insulin) levothyroxine 175 mcg capsule 175 mcg PO DAILY 05/27/23 11/11/23 History omeprazole 20 mg capsule,delayed 20 mg PO DAILY 05/27/23 11/11/23 History release amlodipine 2.5 mg tablet 2.5 mg PO DAILY 11/11/23 11/11/23 History benzonatate 200 mg capsule 200 mg PO TID PRN Cough 11/11/23 11/11/23 History zvzutcycrocyhojk-vgkznhjcajwtv-PI 10 ml PO Q4 PRN Cough 11/11/23 11/11/23 History 2 mg-5 mg-10 mg/5 mL oral liquid guaifenesin 600 mg tablet, 600 mg PO BID PRN Congestion 11/11/23 11/11/23 History extended release 12 hr loperamide 2 mg capsule 2 mg PO Q4 PRN Diarrhea 11/11/23 11/11/23 History nystatin 100,000 unit/gram topical 1 applic topical BID 11/11/23 11/11/23 History cream Patient History Medical History (Updated 11/12/23 @ 10:55 by Emir Pretty MD) History of esophageal stricture CKD (chronic kidney disease) Hypothyroidism (acquired) Hypertension Diabetes Vitamin D deficiency SCC (squamous cell carcinoma) Right hand Gout Generalized osteoarthritis Dyslipidemia CVA (cerebral vascular accident) Breast cancer, right BCC (basal cell carcinoma of skin) Nose, left eye brow Bakers cyst Actinic keratosis Osteoarthritis Surgical History Status post right breast lumpectomy Family History Father Cancer Social History Smoking Status: Never smoker Second Hand Exposure: No; Hx Alcohol Use: No Hx Substance Use: No Preferred Language: Greek Communication Ability: Effective Visual Impairment: Limited Hearing Ability: Hard of Hearing Veneer Jointer Required: No Beliefs That Will Affect Care: None Current Living Situation: Personal Care Facility Current Living Situation Comment: [facility] in [place] current occupational status: retired How many Children do You have: 3 Other Information That Helps Us Care for You: No Feels Safe at Home: Yes Safety Concerns: Feels Safe At This Time Childhood Exposure to Second-Hand Smoke: No Diet: regular caffeine: Yes Physical Activity Frequency: Does not Exercise Do you think of yourself as: straight/heterosexual Assistive Devices: Glasses and Wheelchair Review of Systems Review of Systems: All systems reviewed & are unremarkable except as noted in HPI & below Physical Exam Constitutional: WD/WN, vitals as above Respiratory: normal respiratory effort, lungs clear to auscultation Cardiovascular: RRR, no murmur, no edema Gastrointestinal (Abdomen): normal bowel sounds, soft, nontender, no hepatosplenomegaly Psychiatric: Orientation: alert and oriented x 3 Affect: euthymic affect Results & Data Vital Signs (Past 12 Hours) Vital Signs Temp Pulse Resp BP Pulse Ox O2 Del Method 11/12/23 07:55 97.9 F 80 18 128/77 92 Room Air Coding Level of Care Code 08786 INT INP/OBS CARE 2/55MIN Diagnoses History of esophageal stricture Z87.19 Dysphagia R13.10
[2023-11-12] MEDS: CLOPIDOGREL BISULFATE 75 MG TAB PO SCH (10:11)
--- NOTE | 2023-11-12 10:55 | Anesthesiology Consultation ---
Date of Service November 12, 2023 Assessment & Plan (1) Encounter for pre-operative examination: Chart Review Chart Review: Acceptable Risk for Surgery History Surgery Operation Date: 11/12/23 16:30 Proposed Procedures p Esophagogastroduodenoscopy Dr Nina - Asher Mtz Case, DO Height/Weight Height: 5 ft 8 in Weight: 105.007 kg Allergies Allergy/AdvReac Type Severity Reaction Status Date / Time bacitracin Allergy Unknown Verified 11/11/23 12:38 clindamycin Allergy Unknown Verified 11/11/23 12:38 diltiazem [From Cardizem] Allergy Unknown Verified 11/11/23 12:38 NSAIDS (Non-Steroidal Allergy Unknown Verified 11/11/23 12:38 Anti-Inflamma Penicillins Allergy Unknown Verified 11/11/23 12:38 Sulfa (Sulfonamide Allergy Unknown Verified 11/11/23 12:38 Antibiotics) Medications Home Medications Medication Instructions Recorded Confirmed Last Taken anastrozole 1 mg tablet 1 mg PO DAILY 05/06/22 11/11/23 Unknown aspirin 81 mg chewable tablet 81 mg PO DAILY 05/06/22 11/11/23 Unknown (Aspirin Childrens) atorvastatin 80 mg tablet 80 mg PO DAILY 05/06/22 11/11/23 Unknown clopidogrel 75 mg tablet 75 mg PO DAILY 05/06/22 11/11/23 Unknown coenzyme Q10 100 mg capsule (Co 100 mg PO DAILY 05/06/22 11/11/23 Unknown Q-10) diphenhydramine HCl 25 mg tablet 25 mg PO Q8 PRN Itching 05/06/22 11/11/23 Unknown ferrous sulfate 325 mg (65 mg 325 mg PO DAILY 05/06/22 11/11/23 Unknown iron) tablet glucosamine-chondroitin 250 mg-200 1 tab PO DAILY 05/06/22 11/11/23 Unknown mg tablet (Osteo Bi-Flex) insulin aspart U-100 100 unit/mL 1 sliding scale dose subcut AC 05/06/22 11/11/23 Unknown (3 mL) subcutaneous pen (Novolog FlexPen U-100 Insulin aspart) loratadine 10 mg tablet 10 mg PO DAILY 05/06/22 11/11/23 Unknown metformin 500 mg tablet 500 mg PO BIDWMEAL 05/06/22 11/11/23 Unknown nystatin 100,000 unit/gram topical 1 applic topical TID 05/06/22 11/11/23 Unknown powder potassium chloride 10 mEq 10 meq PO TID 05/06/22 11/11/23 Unknown tablet,extended release magnesium oxide 400 mg PO BID #60 tabs 05/08/22 11/11/23 Unknown acetaminophen 325 mg tablet 650 mg PO Q4 PRN Pain 01/25/23 11/11/23 Unknown glipizide 10 mg tablet, extended 10 mg PO DAILY 01/25/23 11/11/23 Unknown release 24 hr lutein 25 mg-zeaxanthin 5 mg 1 cap PO DAILY 01/25/23 11/11/23 Unknown capsule (Ocuvite Lutein) hydrocortisone 2.5 % topical cream 1 applic topical BID PRN Itching 03/18/23 11/11/23 Unknown insulin glargine 100 unit/mL (3 50 unit subcut HS 03/18/23 11/11/23 Unknown mL) subcutaneous pen (Lantus Solostar U-100 Insulin) levothyroxine 175 mcg capsule 175 mcg PO DAILY 05/27/23 11/11/23 Unknown omeprazole 20 mg capsule,delayed 20 mg PO DAILY 05/27/23 11/11/23 Unknown release amlodipine 2.5 mg tablet 2.5 mg PO DAILY 11/11/23 11/11/23 Unknown benzonatate 200 mg capsule 200 mg PO TID PRN Cough 11/11/23 11/11/23 Unknown alaywycnafpzilkt-opqjyxpxgilur-CT 10 ml PO Q4 PRN Cough 11/11/23 11/11/23 Unknown 2 mg-5 mg-10 mg/5 mL oral liquid guaifenesin 600 mg tablet, 600 mg PO BID PRN Congestion 11/11/23 11/11/23 Unknown extended release 12 hr loperamide 2 mg capsule 2 mg PO Q4 PRN Diarrhea 11/11/23 11/11/23 Unknown nystatin 100,000 unit/gram topical 1 applic topical BID 11/11/23 11/11/23 Unknown cream Active Medications Generic Name Dose Route Start Last Admin Trade Name Freq PRN Reason Stop Dose Admin Clopidogrel Bisulfate 75 mg 11/12/23 09:00 11/12/23 10:11 Clopidogrel Bisulfate 75 Mg Tab PO 12/12/23 08:59 Not Given DAILY JOSUÉ Enoxaparin Sodium 40 mg 11/11/23 18:30 11/11/23 19:50 Enoxaparin Inj 40 Mg/0.4 Ml Syr SQ 12/11/23 18:29 40 mg Q24H JOSUÉ Administration Lactated Ringer's 1,000 mls @ 75 mls/hr 11/11/23 18:20 11/12/23 07:19 Lr IV 12/11/23 18:19 75 mls/hr .[id number] JOSUÉ Administration Famotidine 20 mg in 5 mls @ 2.5 mls/min 11/12/23 00:00 11/12/23 00:27 Pepcid 20mg Iv Push IV 12/12/23 00:00 2.5 mls/min Q12H JOSUÉ Administration Insulin Aspart 0 units 11/12/23 00:00 11/12/23 06:25 Insulin Aspart Per Unit Charge SC 12/12/23 00:00 Not Given Q6 OJSUÉ Insulin Glargine 10 units 11/11/23 21:00 11/11/23 20:42 Lantus Per Unit Charge SQ 12/11/23 20:59 10 units HS JOSUÉ Administration Levothyroxine Sodium 175 mcg 11/12/23 06:30 11/12/23 05:45 Levothyroxine Sodium 175 Mcg Tablet PO 12/12/23 06:29 Not Given DAILYBB JOSUÉ Past Medical History Medical History (Updated 11/12/23 @ 10:55 by Emir Pretty MD) History of esophageal stricture CKD (chronic kidney disease) Hypothyroidism (acquired) Hypertension Diabetes Vitamin D deficiency SCC (squamous cell carcinoma) Right hand Gout Generalized osteoarthritis Dyslipidemia CVA (cerebral vascular accident) Breast cancer, right BCC (basal cell carcinoma of skin) Nose, left eye brow Bakers cyst Actinic keratosis Osteoarthritis Past Family History Family History Father Cancer Past Surgical History Surgical History Status post right breast lumpectomy Social History Smoking Status: Never smoker Hx Alcohol Use: No Hx Substance Use: No Physical Exam Vital Signs Last Vital Signs Temp 36.6 C 11/12/23 07:55 Pulse 80 11/12/23 07:55 Resp 18 11/12/23 07:55 BP 128/77 11/12/23 07:55 Pulse Ox 92 11/12/23 07:55 O2 Del Method Room Air 11/12/23 07:55 Testing Laboratory Results 11/12/23 06:24 11/12/23 06:24 PT 11.4 Seconds (9.0-12.0) 11/11/23 11:08 INR 1.1 (0.9-1.1) 11/11/23 11:08 11/12/23 11/12/23 06:14 00:02 POC Glucose 142 H 180 H Hb A1C 9.5 Electrocardiogram Date: 11/11/23 Findings: + NSR @ (97)
[2023-11-12] MEDS: SODIUM CHLORIDE 0.9% 500 ML IV SCH (11:54)
--- NOTE | 2023-11-12 12:59 | Anesthesiology Progress Note ---
Date of Service November 12, 2023 Anesthesia Post Procedure Vital Signs Vital Signs: Temp Pulse Pulse Pulse Resp BP BP 11/12/23 12:54 36.4 C L 80 20 147/81 H 11/12/23 11:47 36.5 C 83 20 174/84 H 11/12/23 07:55 36.6 C 80 18 128/77 11/11/23 20:35 11/11/23 20:30 36.7 C 88 20 151/79 H 11/11/23 18:15 36.8 C 92 H 16 163/92 H 11/11/23 17:55 87 17 166/89 H 11/11/23 17:00 88 19 138/82 11/11/23 16:00 91 H 21 11/11/23 16:00 163/108 H 11/11/23 15:30 91 H 16 11/11/23 15:30 162/100 H 11/11/23 15:02 18 11/11/23 15:00 90 16 11/11/23 15:00 150/86 H 11/11/23 14:30 92 H 19 11/11/23 14:30 151/82 H 11/11/23 14:00 96 H 24 11/11/23 14:00 147/82 H 11/11/23 13:30 152/92 H 11/11/23 13:30 100 H 23 11/11/23 13:00 100 H 21 11/11/23 13:00 172/97 H Pulse Ox O2 Del Method 11/12/23 12:54 96 Room Air 11/12/23 11:47 95 Room Air 11/12/23 07:55 92 Room Air 11/11/23 20:35 Room Air 11/11/23 20:30 95 Room Air 11/11/23 18:15 93 Room Air 11/11/23 17:55 97 Room Air 11/11/23 17:00 98 11/11/23 16:00 96 11/11/23 16:00 11/11/23 15:30 97 11/11/23 15:30 11/11/23 15:02 11/11/23 15:00 97 11/11/23 15:00 11/11/23 14:30 97 Room Air 11/11/23 14:30 11/11/23 14:00 95 Room Air 11/11/23 14:00 11/11/23 13:30 11/11/23 13:30 97 11/11/23 13:00 98 11/11/23 13:00 Transfer of Care Handoff Completed per policy Notes Mental Status: alert / awake / arousable Patient Amnestic to Procedure: Yes Nausea / Vomiting: adequately controlled Pain: adequately controlled Airway Patency, RR, SpO2: stable & adequate BP & HR: stable & adequate Hydration State: stable & adequate Anesthetic Complications: no major complications apparent
--- NOTE | 2023-11-12 13:09 | GI REPORT ---
Patient Name: Maeve Lorenz Procedure Date: 11/12/2023 12:27 PM Date of : 1935 Admit Type: Inpatient Age: 88 Gender: Female Attending MD: Asher Nina DO, Procedure: Upper GI endoscopy Providers: Asher Nina DO Referring MD: Melanie [facility] Er[facility] Indications: Dysphagia Medicines: Monitored Anesthesia Care Complications: No immediate complications. Estimated Blood Loss: Estimated blood loss: none. Procedure: Pre-Anesthesia Assessment: - Prior to the procedure, a History and Physical was performed, and patient medications and allergies were reviewed. The patient's tolerance of previous anesthesia was also reviewed. The risks and benefits of the procedure and the sedation options and risks were discussed with the patient. All questions were answered, and informed consent was obtained. Prior Anticoagulants: The patient last took Lovenox (enoxaparin) 1 day and Plavix (clopidogrel) 3 days prior to the procedure. ASA Grade Assessment: III - A patient with severe systemic disease. After reviewing the risks and benefits, the patient was deemed in satisfactory condition to undergo the procedure. After obtaining informed consent, the endoscope was passed under direct vision. Throughout the procedure, the patient's blood pressure, pulse, and oxygen saturations were monitored continuously. The Endoscope was introduced through the mouth, and advanced to the second part of duodenum. The upper GI endoscopy was accomplished without difficulty. The patient tolerated the procedure well. Findings: One benign-appearing, intrinsic moderate stenosis was found 22 cm from the incisors. This stenosis measured 1.4 cm (inner diameter) x 1 cm (in length). The stenosis was traversed. A guidewire was placed and the scope was withdrawn. Dilation was performed with a Savary dilator with mild resistance at 51 Fr. The dilation site was examined following endoscope reinsertion and showed moderate improvement in luminal narrowing. The stomach was normal. The examined duodenum was normal. Impression: - Benign-appearing esophageal stenosis. Dilated. - Normal stomach. - Normal examined duodenum. - No specimens collected. Recommendation: - Return patient to hospital ch for ongoing care. - Advance diet as tolerated. - Repeat upper endoscopy PRN for retreatment. Asher Nina DO 11/12/2023 1:08:33 PM This report has been signed electronically. Note Initiated On: 11/12/2023 12:27 PM Number of Addenda: 0 I attest to the content of the Intraoperative Record and orders documented therein, exceptions below {[id number]}
[2023-11-12] MEDS: LIDOCAINE 2% 2 ML VIAL/AMP(20MG/ML) INFIL ONE (14:17)
[2023-11-12] MEDS: PROPOFOL IV EMULSION 10 MG/ML 20 ML VIAL IV ONE (14:17)
[2023-11-12] MEDS ORDERED: Nursing to Pharmacy Communication SCH (17:15)
[2023-11-12] MEDS: NYSTATIN POWDER 15GM BTL EXT SCH (23:46)
[2023-11-13 08:35] LABS: Hematocrit (blood only) 37.4 % (37.0-47.0); Hemoglobin 12.3 g/dl (12.0-16.0); Mean Corpuscular Hemoglobin 28.9 pg (25.0-34.0); Mean Corpuscular Hgb Conc 32.9 g/dL (32.0-36.0); Mean Platelet Volume 11.7 fL (9.4-12.4); Platelet Count 192 K/uL (130-400); RDW Coefficient of Variation 14.3 % (11.5-14.5); RDW Standard Deviation 46.2 fL (36.4-46.3); Red Blood Count 4.25 M/uL (4.20-5.40); White Blood Count 5.68 K/ul (4.8-10.8)
[2023-11-13 08:52] LABS: Albumin Globulin Ratio 1.1 (0.9-2); Albumin Level 3.6 gm/dl (3.4-5.0); BUN Creatinine Ratio 12.9 (10-20); Est GFR (African American) 44.6 ml/min; Est GFR (Non-African American) 38.5 ml/min; Globulin 3.2 gm/dl (2.5-4.0); Magnesium 1.5 mg/dl (1.7-2.4); Phosphorus 3.6 mg/dl (2.5-4.9); Potassium 3.8 mmol/L (3.5-5.1); Total Protein 6.8 gm/dl (6.0-8.3)
[2023-11-13] MEDS: MAGNESIUM SULFATE / D5W 1 GM/100 ML BAG IV SCH (11:23)
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
[2023-11-13] MEDS: INSULIN ASPART PER UNIT CHARGE SC SCH (21:12)
[2023-11-13] MEDS: LANTUS PER UNIT CHARGE SQ STA (21:14)
[2023-11-13] MEDS: NSS + 20MEQ KCL 20 MEQ/1,000 ML BAG IV ONE (21:17)
[2023-11-14 07:14] LABS: Estimated Average Glucose 212 mg/dl
[2023-11-14 07:23] LABS: Hematocrit (blood only) 36.1 % (37.0-47.0); Mean Corpuscular Hemoglobin 28.9 pg (25.0-34.0); Mean Corpuscular Hgb Conc 33.2 g/dL (32.0-36.0); Mean Platelet Volume 11.6 fL (9.4-12.4); Platelet Count 180 K/uL (130-400); RDW Coefficient of Variation 14.2 % (11.5-14.5); RDW Standard Deviation 45.1 fL (36.4-46.3); Red Blood Count 4.15 M/uL (4.20-5.40); White Blood Count 5.13 K/ul (4.8-10.8)
[2023-11-14 07:48] LABS: Albumin Globulin Ratio 1.1 (0.9-2); Albumin Level 3.3 gm/dl (3.4-5.0); BUN Creatinine Ratio 11.2 (10-20); Calcium 9.1 mg/dl (8.6-10.3); Creatinine Clr Calc Pharmacy 38.7 ml/min; Est GFR (African American) 44.2 ml/min; Est GFR (Non-African American) 38.1 ml/min; Globulin 3.1 gm/dl (2.5-4.0); Magnesium 1.8 mg/dl (1.7-2.4); Phosphorus 3.9 mg/dl (2.5-4.9); Potassium 3.8 mmol/L (3.5-5.1); Total Protein 6.4 gm/dl (6.0-8.3)
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
[2023-11-14] MEDS ORDERED: LANTUS PER UNIT CHARGE SQ SCH ×2 (21:00)
[2023-11-14] MEDS: LANTUS PER UNIT CHARGE SQ SCH (21:11)
[2023-11-15 01:42] LABS: Appearance Urine Cloudy (Clear); Bacteria Urine Automated 4+ (None Seen); Bilirubin Urine Negative (Negative); Blood Urine Trace (Negative); Cast Urine Automated 0-2 /lpf (0-2); Color Urine Yellow; Epithelial Cell Urine Auto 0-2 /hpf (0-2); Glucose Urine UA 2+ (Negative); Ketones Urine Negative (Negative); Leukocyte Esterase Urine 3+ (Negative); Nitrite Urine Negative (Negative); Protein Urine 1+ (Negative); Specific Gravity Urine 1.011 (1.000-1.030); Urobilinogen Urine Negative (Negative); WBC Urine Automated >50 /hpf (0-5); pH Urine 6.5 (4.5-7.5)
--- NOTE | 2023-11-15 02:31 | Communication Note ---
Date of Service: November 15, 2023 Patient urine noted to be cloudy and foul-smelling. No abdominal or flank complaints as per RN. UA WBC esterase, nitrite positive AP Complicated UTI Urine CS, Cefepime
[2023-11-15] MEDS: CEFEPIME 2,000 MG in SYRINGE 0 ML IV SCH (03:42)
[2023-11-15 08:41] LABS: Hematocrit (blood only) 36.3 % (37.0-47.0); Hemoglobin 11.9 g/dl (12.0-16.0); Mean Corpuscular Hemoglobin 28.7 pg (25.0-34.0); Mean Corpuscular Hgb Conc 32.8 g/dL (32.0-36.0); Mean Corpuscular Volume 87.7 fL (80.0-100.0); Mean Platelet Volume 11.8 fL (9.4-12.4); Platelet Count 190 K/uL (130-400); RDW Coefficient of Variation 14.3 % (11.5-14.5); RDW Standard Deviation 45.7 fL (36.4-46.3); Red Blood Count 4.14 M/uL (4.20-5.40); White Blood Count 5.93 K/ul (4.8-10.8)
[2023-11-15 08:58] LABS: Albumin Level 3.4 gm/dl (3.4-5.0); Calcium 9.2 mg/dl (8.6-10.3); Creatinine Clr Calc Pharmacy 38.1 ml/min; Est GFR (African American) 43.3 ml/min; Est GFR (Non-African American) 37.4 ml/min; Globulin 3.4 gm/dl (2.5-4.0); Magnesium 1.6 mg/dl (1.7-2.4); Phosphorus 3.8 mg/dl (2.5-4.9); Potassium 4.1 mmol/L (3.5-5.1); Total Protein 6.8 gm/dl (6.0-8.3)
[2023-11-15] MEDS: MAGNESIUM SULFATE / D5W 1 GM/100 ML BAG IV SCH (11:49)
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
--- NOTE | 2023-11-15 21:05 | Communication Note ---
Date of Service: November 15, 2023 Made aware by RN of uncontrolled blood pressure. SBP 140-170s the last 24 hours. Patient asymptomatic as per RN. AP Uncontrolled hypertension Resume home amlodipine Will relay to AM provider.
[2023-11-15] MEDS: LANTUS PER UNIT CHARGE SQ SCH (21:16)
[2023-11-15] MEDS: amLODIPine BESYLATE 5 MG TAB PO SCH (21:58)
[2023-11-16 06:47] LABS: Hematocrit (blood only) 35.8 % (37.0-47.0); Hemoglobin 11.7 g/dl (12.0-16.0); Mean Corpuscular Hemoglobin 28.8 pg (25.0-34.0); Mean Corpuscular Hgb Conc 32.7 g/dL (32.0-36.0); Mean Corpuscular Volume 88.2 fL (80.0-100.0); Platelet Count 196 K/uL (130-400); RDW Coefficient of Variation 14.3 % (11.5-14.5); RDW Standard Deviation 45.8 fL (36.4-46.3); Red Blood Count 4.06 M/uL (4.20-5.40); White Blood Count 6.37 K/ul (4.8-10.8)
[2023-11-16 07:04] LABS: Albumin Globulin Ratio 0.9 (0.9-2); Albumin Level 3.2 gm/dl (3.4-5.0); BUN Creatinine Ratio 11.1 (10-20); Bilirubin,Total 0.9 mg/dl (0.2-1.0); Calcium 9.4 mg/dl (8.6-10.3); Creatinine Clr Calc Pharmacy 35.8 ml/min; Est GFR (African American) 40.2 ml/min; Est GFR (Non-African American) 34.7 ml/min; Globulin 3.4 gm/dl (2.5-4.0); Phosphorus 3.9 mg/dl (2.5-4.9); Potassium 4.1 mmol/L (3.5-5.1); Total Protein 6.6 gm/dl (6.0-8.3)
[2023-11-16] MEDS: ERTAPENEM SODIUM 1,000 MG in SYRINGE 0 ML IV SCH (10:43)
--- NOTE | 2023-11-16 11:10 | Discharge Summary ---
Discharge Summary Date of Service November 16, 2023 Notes For Next Care Provider Patient currently tolerating a full liquid diet. Her diet was initially advanced; however she preferred the full liquid food options. You may advance diet as tolerated. Please check BMP within 1 week. Prior to hospitalization she was on potassium supplements 3 times daily. Her potassium has remained normal and currently no indication to continue supplementation. Patient had a urine culture returned positive for ESBL. She was asymptomatic, afebrile and she did not have leukocytosis. I discussed with Infectious disease who felt it was not a true infection and therefore no treatment warranted. Medication Changes From Visit HOLD potassium supplement Admission HPI Per Admitting Provider Patient is an 88-year-old female who presents to the emergency room after having an episode of possible choking versus aspiration with breakfast today. She reports that she was able to eat a good bit of her breakfast but then suddenly was unable to swallow. Staff at the home checked on her and noted that she was hypoxic with a reported O2 sat in the 60s. EMS was called. When EMS arrived she was saturating adequately. But was brought to the emergency room for evaluation. In the emergency room laboratory studies were unremarkable for acute findings. Chest x-ray did not show any definitive infiltrate. She was saturating well on room air. However, when they attempted a swallowing screen patient was unable to swallow effectively. Due to these findings she was referred for further evaluation. At time of my evaluation the patient states that she is hungry and feels as though she could swallow. She does report a history of a somewhat similar episode a few weeks ago. She did not seek medical attention at that time. She reports that she was taken into the bathroom and told to inhale steam from the hot water that was running. She reports several years ago she had difficulties managing her secretions and she was having episodes of emesis every time she ate. She was discovered to have an esophageal stricture and underwent EGD with esophageal dilatation in 2019. She states that ever since then she has not had any problem with her swallowing up until the past few weeks. She states that she does need to eat slow but she eats normal consistency food and has not had to have a modified diet. Otherwise she states that she has been doing really well. Daughter is at the bedside states that she has been doing well at this home as well. She denies any chest pain she denies any shortness of breath. She states that her bowels and bladder have been working well as she states that she has been having good appetite. No fevers or chills. She does see wound routinely she has had some skin cancers on her lower extremities and is being managed regularly by the wound clinic. Admission Exam Per Admitting Provider Constitutional: Alert, not ill in appearance, nontoxic HEENT: Mucous membranes moist. Sclera clear, does seem as though she is retaining some oral secretions Neck: Soft, no adenopathy Lungs: Clear to auscultation, decreased, no wheezes, a few rhonchi CV: S1-S2, regular Abdomen: Soft, nontender, nondistended Extremities: Tubigrip compression stockings on bilateral lower extremities with bandages underneath Musculoskeletal: No significant joint tenderness Neuro: No focal deficits, generalized weakness Psych: Cooperative, normal mood Principal Dx & Hospital Course #1 = Principal Diagnosis (1) Encounter for observation for suspected aspirated (inhaled) foreign body ruled out: (2) History of esophageal stricture: (3) Esophageal spasm: (4) Dysphagia: (5) Choking episode: (6) Ulcer of right lower extremity: (7) Ulcer of left lower extremity: (8) 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 History of esophageal stricture that required dilatation in the past. Patient is a high risk for aspiration. Patient also unable to safely swallow and will need care for in the hospital including specialty consultation and IV hydration. Dysphagia Pt presenting with dysphagia to solids, choking episodes GI Consulted, appreciate recs -s/p EGD on 11/11 -noted benign esophageal stenosis that was dilated -recommended advancing diet as tolerated Speech therapy also consulted who recommends advanced diet as tolerated She is currently on full liquid due to preference but can advance as tolerated She will need to f/u with GI as outpatient Abnormal Urinalysis ESBL Colonization Initial urinalysis concerning for infection Urine culture grew ESBL, E. coli Urine specimen was collected due to foul-smelling and cloudy nature She did not have a fever and is not exhibiting leukocytosis She also denies urinary symptoms I did discuss her with infectious disease who feels likely colonization and not true infection Anemia Hgb baseline ~11 Continue to monitor CKD Cr baseline ~ 1.2 Currently at baseline, continue to monitor DMII Hold home meds, a1c 9.0, uncontrolled Basal/bolus insulin while hospitalized She will need close follow-up with primary care provider to obtain improved glycemic control, goal would be around 8 given age On day of discharge pt was in good spirits. She is uncomfortable in the bed, but otherwise no acute issue. She Is hemodynamically stable and afebrile. On day of discharge her CBC was unremarkable except for a stable anemia 11.7 and 35.8. Her creatinine was stable at 1.3. She was hyperglycemic receiving insulin. Diet: advancing as tolerated DVT prophylaxis: Lovenox Dispo: Discharge to [facility] today Discharge Exam Gen: Elderly, F, NAD, sitting up in bed, WD/WN, NAD, A&O x3 HEENT: Normocephalic, atraumatic, conjunctivae moist, sclerae anicteric, mucous membranes moist. Lung: Clear to Auscultation bilaterally, no wheezes/rales/rhonchi Heart: Regular rate, regular rhythm, no murmurs, rubs, or gallops Abdomen: obese abd, Soft, NT, ND +BS x 4 Extremities: trace b/l edema Skin: Warm, no rash, negative turgor. Updated Medication List Medication Instructions Recorded Confirmed Type anastrozole 1 mg tablet 1 mg PO DAILY 05/06/22 11/11/23 History aspirin 81 mg chewable tablet 81 mg PO DAILY 05/06/22 11/11/23 History (Aspirin Childrens) atorvastatin 80 mg tablet 80 mg PO DAILY 05/06/22 11/11/23 History clopidogrel 75 mg tablet 75 mg PO DAILY 05/06/22 11/11/23 History coenzyme Q10 100 mg capsule (Co 100 mg PO DAILY 05/06/22 11/11/23 History Q-10) diphenhydramine HCl 25 mg tablet 25 mg PO Q8 PRN Itching 05/06/22 11/11/23 History ferrous sulfate 325 mg (65 mg 325 mg PO DAILY 05/06/22 11/11/23 History iron) tablet glucosamine-chondroitin 250 mg-200 1 tab PO DAILY 05/06/22 11/11/23 History mg tablet (Osteo Bi-Flex) insulin aspart U-100 100 unit/mL 1 sliding scale dose subcut AC 05/06/22 11/11/23 History (3 mL) subcutaneous pen (Novolog FlexPen U-100 Insulin aspart) loratadine 10 mg tablet 10 mg PO DAILY 05/06/22 11/11/23 History metformin 500 mg tablet 500 mg PO BIDWMEAL 05/06/22 11/11/23 History nystatin 100,000 unit/gram topical 1 applic topical TID 05/06/22 11/11/23 History powder potassium chloride 10 mEq 10 meq PO TID 05/06/22 11/11/23 History tablet,extended release magnesium oxide 400 mg PO BID #60 tabs 05/08/22 11/11/23 Rx acetaminophen 325 mg tablet 650 mg PO Q4 PRN Pain 01/25/23 11/11/23 History glipizide 10 mg tablet, extended 10 mg PO DAILY 01/25/23 11/11/23 History release 24 hr lutein 25 mg-zeaxanthin 5 mg 1 cap PO DAILY 01/25/23 11/11/23 History capsule (Ocuvite Lutein) hydrocortisone 2.5 % topical cream 1 applic topical BID PRN Itching 03/18/23 11/11/23 History insulin glargine 100 unit/mL (3 50 unit subcut HS 03/18/23 11/11/23 History mL) subcutaneous pen (Lantus Solostar U-100 Insulin) levothyroxine 175 mcg capsule 175 mcg PO DAILY 05/27/23 11/11/23 History omeprazole 20 mg capsule,delayed 20 mg PO DAILY 05/27/23 11/11/23 History release amlodipine 2.5 mg tablet 2.5 mg PO DAILY 11/11/23 11/11/23 History benzonatate 200 mg capsule 200 mg PO TID PRN Cough 11/11/23 11/11/23 History wnrswnjgdcphnnov-ssuueheukviis-ZH 10 ml PO Q4 PRN Cough 11/11/23 11/11/23 History 2 mg-5 mg-10 mg/5 mL oral liquid guaifenesin 600 mg tablet, 600 mg PO BID PRN Congestion 11/11/23 11/11/23 History extended release 12 hr loperamide 2 mg capsule 2 mg PO Q4 PRN Diarrhea 11/11/23 11/11/23 History nystatin 100,000 unit/gram topical 1 applic topical BID 11/11/23 11/11/23 History cream Hospital Stay Data Consultations 11/11/23 13:07 ED Decision to Admit Stat 11/11/23 18:20 Consult Gastroenterology Routine 11/16/23 08:14 Consult Infectious Diseases Routine 11/16/23 08:22 Consult Infectious Diseases Routine Procedures Performed Operation Date: 11/12/23 16:30 Actual Procedures p EGD Monae - Asher Mtz Case, DO Diagnostic Imagining Performed Chest X-Ray 11/11/23 10:47 XR chest 1V portable CLINICAL HISTORY: episode of choking TECHNIQUE: Single frontal radiograph of the chest was obtained. Comparison: Comparison is made to chest radiograph 05/06/2022 FINDINGS: No lines and tubes are seen. Cardiomegaly is noted. The aortic arch is calcified. The lungs are clear. No evidence of pleural effusion or pneumothorax. IMPRESSION: No acute chest disease. ACT 112: Negative or not required by law. Electronically signed by: Eulogio Diehl M.D. 11/11/2023 11:47 AM Pending Results Patient Have Any Pending Studies at Discharge: No Discharge Instructions Given to Patient (Per Discharging Provider) MEDICATION CHANGES: Please hold your potassium supplement as your potassium levels have remained stable throughout your hospital stay. Would recommend repeat BMP in 1 week to determine if potassium levels still normal. Will discuss with your primary care provider if this medication is still indicated. Please continue all other medications as prescribed. SUMMARY OF TEST RESULTS: You were admitted to hospital secondary to a choking episode and difficulty swallowing. You were seen and evaluated by gastroenterology. You underwent an EGD and were found to have a stricture. Your esophagus was dilated. Your difficulty swallowing has improved and you are tolerating diet at discharge. PENDING TEST RESULTS: None RECOMMENDATIONS FOR FOLLOW-UP: Please follow-up with primary care provider upon discharge from rehab facility. It is recommended that you have a BMP in 1 week. There was concern that you may have a urinary tract infection. This was ruled out as you did not have symptoms and you did not exhibit signs of infection like fever or and elevated white blood cell count. It is felt that your urinary tract is likely colonized with this organism and at this time you do not have a true infection. OTHER INSTRUCTIONS: Seek medical attention if you have: * temperature above 101 * chest pain or trouble breathing * abdominal pain, nausea, vomiting * diarrhea, dark stools or bloody stools * any unanswered questions or concerns Call 911 if symptoms are severe. Please take good care of yourself. It has been a pleasure taking care of you. Please take care of yourself. If you have any questions regarding your recent hospitalization please contact [facility] and request Germán Gilliamist @ [phone]. Total Time Total Time Spent Total Time Spent (In Minutes): 45 minutes Supervising Physician Co-Signing Physician Notes Pt was seen and examined by myself, Sarahi English MD on the day of service. Care was coordinated with Diana Sandoval PA-C. 88yo with dysphagia and s/p esophagus dilatation with GI this hospitalization. Prefers full liquid diet at this time. However per GI can advance as tolerated. UA was suggestive of infection, urine Cx grew ESBL bacteria, pt asymptomatic. ID recommending no further treatment, likely colonization. Discharged to acute rehab. Close PCP followup after discharge. Otherwise as above. I spent a total [id number] coordinating, documenting, and providing care for this patient excluding time spent in the performance of separately billed services
[2023-11-16] MEDS ORDERED: LANTUS PER UNIT CHARGE SQ SCH (21:00)
--- NOTE | 2023-11-24 06:00 | Coding Query ---
CODING QUERY To promote full compliance with coding requirements relating to patient care, provider participation is requested in all cases of web analytics specialist uncertainty. Please assist us with the question(s) below: Coding Question(s): In your clinical opinion, can you please clarify if the patient' dysphagia is most likely due to another condition? Please place an 'x' in any set of parenthesis that apply: Dysphagia most likely due to esophageal stricture / stenosis () Dysphagia most likely due to other cause (please specify) () Dysphagia due to unknown cause (x) Per documentation in the record: "Patient is an 88 year old female admitted after recent choking episode. she admits to past history of dysphagia. She reports a history of esophageal stricture that had been dilation in the past. she is agreeable to having this done again. she has been NPO", Per the EGD: "Benign-appearing esophageal stenosis. Dilated" Physician's Response(s): Thank you Dariana Bynum Principal Diagnosis: "that condition established after study, to be chiefly responsible for occasioning the admission of the patient to the hospital for care." Co-Existing Principal Diagnosis: "when two or more diagnoses equally meet the criteria for principal diagnosis as determined by the circumstances of admission, diagnostic work up, and/or therapy provided, and the Alphabetic Index, Tabular List, or another coding guideline does not provide sequencing direction, any one of the diagnoses may be sequenced first." "When the physician has documented what appears to be a current diagnosis in the body of the record, but has not included the diagnosis in the final diagnostic statement, the physician should be asked whether the diagnosis should be added." (Source Coding [facility] 2 QTR90. p3-4) [facility]
== END 2023-11-16 16:28 | DRG 392 ==
LOC: 3W 10:14 → ED 10:14 → SUATTDRO 13:49 → 3W 17:55 → SUATTDRO 11-13 17:22

== ENCOUNTER 2024-05-06 14:36 | Inpatient (IN) ==
--- NOTE | 2024-05-06 14:49 | Emergency Department Note ---
Impression & Plan Complicated urinary tract infection, Hematuria, Elevated lactic acid level ED Provider Note HISTORY OF PRESENT ILLNESS: Patient is an 88-year-old female presenting with hematuria. Patient reports that yesterday she noted some blood tinge to her urine. She states that her [facility] checked her urine and there was no blood detected in it. She states that again this morning she noticed a red tinge to her urine and they tested it and it was bloody and sent her to the ER for further evaluation. Patient denies any dysuria. Denies any abdominal pain, nausea or vomiting. She is on aspirin and Plavix. Denies any chest pain or shortness of breath. She denies lightheadedness or dizziness. She reports has never had blood in her urine before. ROS: as above PHYSICAL EXAM: Constitutional: Patient appears in no acute distress. HENT: Head: Normocephalic and atraumatic. Eyes: EOMI, PERRL Mouth/Throat: Mucous membranes moist. Neck: Trachea midline. Neck supple. Cardiovascular: RRR, No murmurs, rubs or gallops. Intact distal pulses. Pulmonary/Chest: No respiratory distress. Breath sounds clear and equal bilaterally. No wheezes or rales. Abdominal: Abdomen soft, no tenderness, rebound or guarding. Musculoskeletal: No edema, tenderness or deformity noted. Skin: Warm and dry. No rash, erythema, pallor or cyanosis Psychiatric: Appropriate mood and affect for situation. Neurological: Alert and keenly responsive. CN II-XII grossly intact, moving all extremities equally and fully. MDM: - Vitals signs showed hypertension and tachycardia - History obtained via patient. History as above. - Chronic conditions affecting care: HTN; hypothyroidism; CVA; HLD; CKD - Differential diagnoses include, but are not limited to: UTI; ureteral stone; vaginal bleeding; coagulopathy; uterine mass - Order placed for continuous cardiac monitoring. At this time, monitor showed rate of 86 bpm with normal sinus rhythm, per my interpretation. - External medical records reviewed. Wound care visit note dated 04/16/2024 was reviewed. 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 She has grown Pseudomonas in the past. - Laboratory workup interpreted by myself showed normal WBC; slight hyponatremia (Na 135); elevated lactic acid (2.9); normal PT/INR; normal lipase; hyperglycemia (glucose 159); CKD (Cr 1.48) - UA shows evidence of infection. Patient given 2g IV rocephin - CT abdomen/pelvis with IV contrast showed mural thickening of the urinary bladder likely from cystitis. Noted to have gallstones. Noted to have an ovoid shaped cyst in the pancreatic body. Also noted to have right-sided mild pleural effusion. - On further review of chart, patient has a urine culture from 05/04/2024 that is growing ESBL. Did speak with the pharmacist who recommends starting patient on ertapenem, given her elevated renal function and ESBL UTI. - IV ertapenem ordered - Discussion was had with case aide about patient's case and need for admission - Hospitalist consulted for admission - [facility] ASSESSMENT AND PLAN: Diagnosis: complicated UTI; hematuria; elevated lactic acid level Plan: admit Past Med/Surg History Problem List (Updated 05/06/24 @ 18:12 by Lyn Rodríguez MD) Elevated lactic acid level (Acute) Hematuria (Acute) Complicated urinary tract infection (Acute) Ulcer of left lower leg (Acute) MRSA infection Esophageal spasm Dysphagia Ulcer of right lower extremity (Acute) Ulcer of left lower extremity (Acute) Skin lesion of left leg (Acute) Abnormal ankle brachial index (MINDY) (Acute) Lower extremity edema (Chronic) CKD (chronic kidney disease), stage III Hypothyroidism Basal cell carcinoma of lower leg (Acute) Open wound of right lower leg (Acute) Altered mental status (Acute) Hypomagnesemia (Acute) Weakness (Acute) Acute UTI (Acute) Hypomagnesemia History of breast cancer GERD (gastroesophageal reflux disease) Embolic stroke Altered mental state Medical History Encounter for pre-operative examination Encounter for observation for suspected aspirated (inhaled) foreign body ruled out Choking episode History of esophageal stricture CKD (chronic kidney disease) Hypothyroidism (acquired) Hypertension Diabetes Vitamin D deficiency SCC (squamous cell carcinoma) Right hand Gout Generalized osteoarthritis Dyslipidemia CVA (cerebral vascular accident) Breast cancer, right BCC (basal cell carcinoma of skin) Nose, left eye brow Bakers cyst Actinic keratosis Osteoarthritis Surgical History Status post right breast lumpectomy Family History Father Cancer Social History Smoking Status: Never smoker Second Hand Exposure: No; Hx Alcohol Use: No Hx Substance Use: No Preferred Language: Urdu Communication Ability: Effective Visual Impairment: Limited Hearing Ability: Hard of Hearing Chlorinator Required: No Beliefs That Will Affect Care: None Current Living Situation: Personal Care Facility Current Living Situation Comment: [facility] in [place] current occupational status: retired How many Children do You have: 3 Feels Safe at Home: Yes Childhood Exposure to Second-Hand Smoke: No Diet: regular caffeine: Yes Physical Activity Frequency: Does not Exercise Do you think of yourself as: straight/heterosexual Assistive Devices: Wheelchair Allergies Allergies Allergy/AdvReac Type Severity Reaction Status Date / Time bacitracin Allergy Unknown Verified 04/24/24 10:47 clindamycin Allergy Unknown Verified 04/24/24 10:47 diltiazem [From Cardizem] Allergy Unknown Verified 04/24/24 10:47 NSAIDS (Non-Steroidal Allergy Unknown Verified 04/24/24 10:47 Anti-Inflamma Penicillins Allergy Unknown Verified 04/24/24 10:47 Sulfa (Sulfonamide Allergy Unknown Verified 04/24/24 10:47 Antibiotics) Home Meds Home Medications Medication Instructions Recorded Confirmed aspirin 81 mg chewable tablet 81 mg PO QAM 05/06/22 05/06/24 (Aspirin Childrens) atorvastatin 80 mg tablet 80 mg PO QAM 05/06/22 05/06/24 clopidogrel 75 mg tablet 75 mg PO QAM 05/06/22 05/06/24 insulin aspart U-100 100 unit/mL 8 unit subcut TIDM 05/06/22 05/06/24 (3 mL) subcutaneous pen (Novolog FlexPen U-100 Insulin aspart) loratadine 10 mg tablet 10 mg PO DAILY 05/06/22 05/06/24 metformin 500 mg tablet 500 mg PO BIDWMEAL 05/06/22 05/06/24 acetaminophen 325 mg tablet 650 mg PO Q6 PRN Fever Or Pain 01/25/23 05/06/24 glipizide 10 mg tablet, extended 10 mg PO QAM 01/25/23 05/06/24 release 24 hr lutein 25 mg-zeaxanthin 5 mg 1 cap PO QAM 01/25/23 05/06/24 capsule (Ocuvite Lutein) insulin glargine 100 unit/mL (3 52 unit subcut HS 03/18/23 05/06/24 mL) subcutaneous pen (Lantus Solostar U-100 Insulin) levothyroxine 175 mcg capsule 175 mcg PO DAILYBB 05/27/23 05/06/24 omeprazole 20 mg capsule,delayed 20 mg PO DAILYBB 05/27/23 05/06/24 release amlodipine 2.5 mg tablet 2.5 mg PO QAM 11/11/23 05/06/24 guaifenesin 600 mg tablet, 600 mg PO BID PRN COUGH/CONGESTION 11/11/23 05/06/24 extended release 12 hr loperamide 2 mg capsule 2 mg PO .Q2 HOURS PRN Diarrhea 11/11/23 05/06/24 clotrimazole-betamethasone 1 1 applic topical BID 05/06/24 05/06/24 %-0.05 % topical cream glucosamine sulfate 500 mg tablet 500 mg PO DAILY 05/06/24 05/06/24 (Glucosamine) propylene glycol 0.6 % eye drops 1 - 2 drp ophthalmic (eye) . 05/06/24 05/06/24 (Systane Complete) NEEDED PRN DRYNESS Previous Rx's Medication Instructions Recorded magnesium oxide 400 mg PO BID #60 tabs 05/08/22 Results & Data (ED) Vital Signs Vital Signs - 24 hr 05/06/24 14:38 05/06/24 14:47 05/06/24 14:48 Temperature 36.8 C 36.8 C Temperature Source Oral Oral Pulse Rate 96 H 94 H Pulse Rate [Finger] 95 H Respiratory Rate 16 16 16 Respiratory Effort / Characteristics Non-Labored Spontaneous Non-Labored Respiratory Depth Normal Normal Blood Pressure 142/78 H Blood Pressure [Left Arm] 142/78 H Blood Pressure Mean 99 Blood Pressure Mean [Left Arm] 99 Blood Pressure Position Semi-fowlers Blood Pressure Position [Left Arm] Semi-fowlers Pulse Oximetry 93 93 93 Oxygen Delivery Method Room Air Room Air Room Air Sepsis Recent Fever Within 48 Hours No Sepsis New/Unexplained Change in Mental Status N/A Sepsis Action Taken by Nursing No Action Required 05/06/24 16:11 05/06/24 16:30 05/06/24 18:09 Temperature Temperature Source Pulse Rate 93 H Pulse Rate [Finger] 86 88 Respiratory Rate 22 26 H Respiratory Effort / Characteristics Non-Labored Spontaneous Non-Labored Spontaneous Respiratory Depth Normal Normal Blood Pressure Blood Pressure [Left Arm] 150/89 H 182/95 H Blood Pressure Mean Blood Pressure Mean [Left Arm] 109 124 Blood Pressure Position Blood Pressure Position [Left Arm] Semi-fowlers Semi-fowlers Pulse Oximetry 97 97 Oxygen Delivery Method Room Air Room Air Sepsis Recent Fever Within 48 Hours Sepsis New/Unexplained Change in Mental Status Sepsis Action Taken by Nursing Laboratory Data 05/06/24 15:00 05/06/24 15:00 Lab Results 05/06/24 05/06/24 05/06/24 Range/Units 15:00 15:08 15:51 WBC 5.68 (4.8-10.8) K/ul RBC 4.11 L (4.20-5.40) M/uL Hgb 11.2 L (12.0-16.0) g/dl Hct 34.2 L (37.0-47.0) % MCV 83.2 (80.0-100.0) fL MCH 27.3 (25.0-34.0) pg MCHC 32.7 (32.0-36.0) g/dL RDW Std Deviation 45.6 (36.4-46.3) fL RDW Coeff of Zaid 15.0 H (11.5-14.5) % Plt Count 222 (130-400) K/uL MPV 11.6 (9.4-12.4) fL Immature Gran % (Auto) 0.7 % Neut % (Auto) 44.1 % Lymph % (Auto) 36.3 % [place] % (Auto) 11.6 % Eos % (Auto) 6.2 % Baso % (Auto) 1.1 % Neut # (Auto) 2.51 (1.40-6.50) K/uL Lymph # (Auto) 2.06 (1.20-3.40) K/uL [place] # (Auto) 0.66 H (0.11-0.59) K/uL Eos # (Auto) 0.35 (0.00-0.50) K/uL Baso # (Auto) 0.06 (0.00-0.20) K/uL Immature Gran # (Auto) 0.04 (0.01-0.20) K/uL PT 11.2 (9.0-12.0) Seconds INR 1.0 (0.9-1.1) Sodium 135 L (136-145) mmol/L Potassium 3.9 (3.5-5.1) mmol/L Chloride 100 (98-107) mmol/L Carbon Dioxide 26 (21-32) mmol/L Anion Gap 9 (3-11) BUN 17 (6-23) mg/dl Creatinine 1.48 H (0.6-1.2) mg/dl Est Cr Clr Drug Dosing Not Reportable eGFR 33.64 BUN/Creatinine Ratio 11.5 (10-20) Glucose 159 H (70-99(Fasting)) mg/dl Lactate 2.9 H* (0.4-2.0) mmol/L Calcium 9.3 (8.6-10.3) mg/dl Total Bilirubin 0.8 (0.2-1.0) mg/dl AST 26 (13-39) U/L ALT 16 (7-52) U/L Alkaline Phosphatase 123 H (34-104) U/L Total Protein 7.2 (6.0-8.3) gm/dl Albumin 3.7 (3.4-5.0) gm/dl Globulin 3.5 (2.5-4.0) gm/dl Albumin/Globulin Ratio 1.1 (0.9-2) Lipase 14 (11-82) U/L Urine Color Red Urine Appearance Turbid A (Clear) Urine pH 8.0 H (4.5-7.5) Ur Specific [place] 1.014 (1.000-1.030) Urine Protein 3+ H (Negative) Urine Glucose (UA) Negative (Negative) Urine Ketones Negative (Negative) Urine Blood 3+ H (Negative) Urine Nitrite Negative (Negative) Urine Bilirubin Negative (Negative) Urine Urobilinogen Negative (Negative) Ur Leukocyte Esterase 3+ H (Negative) Urine WBC (Auto) >50 H (0-5) /hpf Urine RBC (Auto) >20 H (0-2) /hpf U Hyaline Cast (Auto) 0-2 (0-2) /lpf U Epithel Cells (Auto) 0-2 (0-2) /hpf Urine Bacteria (Auto) 4+ H (None Seen) Administered Medications Discontinued Medications Ceftriaxone Sodium (Rocephin) 2,000 mg in 50 mls @ 100 mls/hr IV NOW STA Stop: 05/06/24 17:00 Last Admin: 05/06/24 16:42 Dose: 100 mls/hr Documented By: MARK ANTHONY Ioversol (Optiray 320 100ml) 94 ml IV ONCE ONE Stop: 05/06/24 16:05 Last Admin: 05/06/24 16:04 Dose: 94 ml Documented By: AW Imaging Data Radiologist's Impression: Abdomen/Pelvis CT 05/06/24 15:32 EXAM: CT abd pelvis IV con only CLINICAL HISTORY: gross hematuria abdominal pains appendix present injected 94ml of optiray 320 al, ek INPATIENT TECHNIQUE: CT of the abdomen and pelvis was performed with contrast, with the following protocol: axial images with, and reconstructed coronal and sagittal images. 94 ml of Optiray was administered intravenously. One of the following dose reduction techniques was utilized for this exam: Automated exposure control, adjustment of the mA and/or kV according to patient size, and use of iterative reconstruction. COMPARISON: No prior studies are available for comparison. FINDINGS: Abdomen: Liver: Enlarged in size with homogenous low attenuation texture denoting fatty infiltration. No focal lesions, cysts, or masses were identified. Hepatic vasculature and biliary ducts are unremarkable. Gallbladder and Biliary System: The gallbladder is partly distended with a few tiny dense stones. No wall thickening or pericholecystic fluid was identified. The common bile duct is slightly prominent reaching 6 mm Pancreas: Diffuse fatty atrophic changes of the pancreatic head, body, and tail with few tiny calcific foci. a small well-defined ovoid-shaped cyst is seen within the pancreatic body measuring about 22 x 23 mm along maximum transverse diameters with fine septa within. The pancreatic duct is dilated reaching 7.4 mm Spleen: Normal in size, shape, and density. No splenic lesions or masses were identified. Kidneys and Adrenal Glands: Both kidneys are normal in size, shape, and position. Cortical thickness is within normal limits. Right lower calyceal tiny stone measuring 3.7 mm with no hydronephrosis. Three right renal cortical cysts ( one at the upper pole and two at the lower pole ) measure 31 mm, 6 mm, and 66 mm along maximum transverse diameters, no septa or enhancing soft tissue components, no calcifications Adrenal glands are unremarkable with no evidence of masses or hyperplasia.6 Pelvis: Urinary Bladder: Diffuse circumferential mural thickening ( 11 mm ) with mucosal enhancement and strands smudging of the perivesical pelvic fat planes, no definite mass lesions or diverticular outpouchings Uterus: Normal in size and contour. No masses or abnormal thickening. Ovaries: Not well visualized but no gross abnormalities were noted. Vagina: Normal in contour and wall thickness. Cervix: No evidence of mass or abnormal thickening. Peritoneal and Retroperitoneal Structures: No free fluid or abnormal fluid collections were identified within the abdomen or pelvis. No lymphadenopathy was noted. Bowel: The visualized bowel loops are normal in caliber and appearance. No evidence of bowel obstruction or wall thickening. Few tiny diverticular outpouchings of the sigmoid colon with clear adjacent fat planes Bones and Soft Tissues: [id number].[id number].5.1.1 Lumbar spondylotic changes with L3/4 /OBX.5.1.1OBX.5.1.2 L4/5 double-level first-degree degenerative spondylolisthesis/OBX.5.1.2/OBX.5.1 Bilateral hip arthritic changes Lower chest cuts revealed mild right-sided pleural effusion with partial collapse of the right lower lobe and basal subsegmental consolidation opacity and atelectatic plates as well as bilateral basal nodular faint ground glass opacities IMPRESSION: 1. A small well-defined ovoid-shaped cyst is seen within the pancreatic body measuring about 22 x 23 mm along maximum transverse diameters with fine septa within. MRI with IV contrast is advised for future assessment. 2. Fatty hepatomegaly 3. Gall bladder stones 4. Right renal stone with no hydronephrosis 5. Right renal benign-looking cortical cysts ( [place] type I ) 6. circumferential mural thickening of the urinary bladder ( likely inflammatory ) cystitis with pelvic inflammatory changes ( pelvic inflammatory disease ) 7. 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 8. Right-sided mild pleural effusion with right lower lobar subsegmental consolidative changes for further evaluation by dedicated study Electronically signed by Chen Arriaga 05-06-2024 5:23 PM Discharge Plan Visit Data Chief Complaint: Vaginal Bleeding Stated Complaint: VAG. BLEED ED Provider: Lyn Rodríguez Discharge Problem: Complicated urinary tract infection, Hematuria, Elevated lactic acid level Forms Stand Alone Forms: My [facility] SNTMNT Prescriptions Prescriptions: No Action acetaminophen 325 mg tablet 650 mg PO Q6 MDD 3grams in 24 hours PRN (Reason: Fever Or Pain) Rx Instructions: max of 3g in 24 hours glipizide 10 mg tablet extended release 24hr 10 mg PO QAM lutein-zeaxanthin [Ocuvite Lutein 25] 25-5 mg capsule 1 cap PO QAM insulin glargine [Lantus Solostar U-100 Insulin] 100 unit/mL (3 mL) insulin pen 52 unit SUBCUT HS levothyroxine 175 mcg capsule 175 mcg PO DAILYBB Rx Instructions: GIVE 0600 omeprazole 20 mg capsule,delayed release(DR/EC) 20 mg PO DAILYBB atorvastatin 80 mg Tablet 80 mg PO QAM clopidogrel 75 mg Tablet 75 mg PO QAM aspirin [Aspirin Childrens] 81 mg Tablet,Chewable 81 mg PO QAM metformin 500 mg Tablet 500 mg PO BIDWMEAL loratadine 10 mg Tablet 10 mg PO DAILY insulin aspart U-100 [Novolog FlexPen U-100 Insulin] 100 unit/mL (3 mL) Insulin Pen 8 unit SUBCUT TIDM magnesium oxide 400 mg magnesium tablet 400 mg PO BID Qty: 60 0RF loperamide 2 mg capsule 2 mg PO .Q2 HOURS MDD 8 TABS PER DAY PRN (Reason: Diarrhea) amlodipine 2.5 mg tablet 2.5 mg PO QAM guaifenesin 600 mg Tablet Extended Release 12hr 600 mg PO BID PRN (Reason: COUGH/CONGESTION) Systane Complete 0.6 % Drops 1 - 2 drp OPHTHALMIC (EYE) . NEEDED PRN (Reason: DRYNESS) glucosamine sulfate [Glucosamine] 500 mg Tablet 500 mg PO DAILY Rx Instructions: administer with a meal clotrimazole-betamethasone 1-0.05 % cream 1 applic TOPICAL BID Rx Instructions: APPLY TO AFFECTED AREAS TWICE A DAY UNTIL CLEAR Referrals Referrals: Melanie Steel [Primary Care Provider] -
[2024-05-06 15:18] LABS: Basophils # (auto) 0.06 K/uL (0.00-0.20); Basophils % (auto) 1.1 %; Eosinophils # (auto) 0.35 K/uL (0.00-0.50); Eosinophils % (auto) 6.2 %; Hematocrit (blood only) 34.2 % (37.0-47.0); Hemoglobin 11.2 g/dl (12.0-16.0); Immature Granulocytes # (auto) 0.04 K/uL (0.01-0.20); Immature Granulocytes % (auto) 0.7 %; Lymphocytes # (auto) 2.06 K/uL (1.20-3.40); Lymphocytes % (auto) 36.3 %; Mean Corpuscular Hemoglobin 27.3 pg (25.0-34.0); Mean Corpuscular Hgb Conc 32.7 g/dL (32.0-36.0); Mean Corpuscular Volume 83.2 fL (80.0-100.0); Mean Platelet Volume 11.6 fL (9.4-12.4); Monocytes # (auto) 0.66 K/uL (0.11-0.59); Monocytes % (auto) 11.6 %; Neutrophils # (auto) 2.51 K/uL (1.40-6.50); Neutrophils % (auto) 44.1 %; Platelet Count 222 K/uL (130-400); RDW Standard Deviation 45.6 fL (36.4-46.3); Red Blood Count 4.11 M/uL (4.20-5.40); White Blood Count 5.68 K/ul (4.8-10.8)
[2024-05-06 15:35] LABS: Alanine Aminotransferase 16 U/L (7-52); Albumin Globulin Ratio 1.1 (0.9-2); Albumin Level 3.7 gm/dl (3.4-5.0); Alkaline Phosphatase 123 U/L (34-104); Anion Gap 9 (3-11); Aspartate Aminotransferase 26 U/L (13-39); BUN Creatinine Ratio 11.5 (10-20); Bilirubin,Total 0.8 mg/dl (0.2-1.0); Blood Urea Nitrogen 17 mg/dl (6-23); Calcium 9.3 mg/dl (8.6-10.3); Carbon Dioxide 26 mmol/L (21-32); Chloride 100 mmol/L (98-107); Globulin 3.5 gm/dl (2.5-4.0); Glucose 159 mg/dl (70-99(Fasting)); Lipase 14 U/L (11-82); Potassium 3.9 mmol/L (3.5-5.1); Sodium 135 mmol/L (136-145); Total Protein 7.2 gm/dl (6.0-8.3)
[2024-05-06 15:44] LABS: Prothrombin Time 11.2 Seconds (9.0-12.0)
[2024-05-06] MEDS: OPTIRAY 320 100ml IV ONE (16:04)
[2024-05-06 16:25] LABS: Appearance Urine Turbid (Clear); Bacteria Urine Automated 4+ (None Seen); Bilirubin Urine Negative (Negative); Blood Urine 3+ (Negative); Cast Urine Automated 0-2 /lpf (0-2); Color Urine Red; Epithelial Cell Urine Auto 0-2 /hpf (0-2); Glucose Urine UA Negative (Negative); Ketones Urine Negative (Negative); Leukocyte Esterase Urine 3+ (Negative); Nitrite Urine Negative (Negative); Protein Urine 3+ (Negative); RBC Urine Automated >20 /hpf (0-2); Specific Gravity Urine 1.014 (1.000-1.030); Urobilinogen Urine Negative (Negative); WBC Urine Automated >50 /hpf (0-5)
[2024-05-06] MEDS: cefTRIAXone SODIUM 2,000 MG/50 ML BAG IV STA (16:42)
--- NOTE | 2024-05-06 17:23 | CT Scan Report ---
EXAM: CT abd pelvis IV con only CLINICAL HISTORY: gross hematuria abdominal pains appendix present injected 94ml of optiray 320 al, ek INPATIENT TECHNIQUE: CT of the abdomen and pelvis was performed with contrast, with the following protocol: axial images with, and reconstructed coronal and sagittal images. 94 ml of Optiray was administered intravenously. One of the following dose reduction techniques was utilized for this exam: Automated exposure control, adjustment of the mA and/or kV according to patient size, and use of iterative reconstruction. COMPARISON: No prior studies are available for comparison. FINDINGS: Abdomen: Liver: Enlarged in size with homogenous low attenuation texture denoting fatty infiltration. No focal lesions, cysts, or masses were identified. Hepatic vasculature and biliary ducts are unremarkable. Gallbladder and Biliary System: The gallbladder is partly distended with a few tiny dense stones. No wall thickening or pericholecystic fluid was identified. The common bile duct is slightly prominent reaching 6 mm Pancreas: Diffuse fatty atrophic changes of the pancreatic head, body, and tail with few tiny calcific foci. a small well-defined ovoid-shaped cyst is seen within the pancreatic body measuring about 22 x 23 mm along maximum transverse diameters with fine septa within. The pancreatic duct is dilated reaching 7.4 mm Spleen: Normal in size, shape, and density. No splenic lesions or masses were identified. Kidneys and Adrenal Glands: Both kidneys are normal in size, shape, and position. Cortical thickness is within normal limits. Right lower calyceal tiny stone measuring 3.7 mm with no hydronephrosis. Three right renal cortical cysts ( one at the upper pole and two at the lower pole ) measure 31 mm, 6 mm, and 66 mm along maximum transverse diameters, no septa or enhancing soft tissue components, no calcifications Adrenal glands are unremarkable with no evidence of masses or hyperplasia.6 Pelvis: Urinary Bladder: Diffuse circumferential mural thickening ( 11 mm ) with mucosal enhancement and strands smudging of the perivesical pelvic fat planes, no definite mass lesions or diverticular outpouchings Uterus: Normal in size and contour. No masses or abnormal thickening. Ovaries: Not well visualized but no gross abnormalities were noted. Vagina: Normal in contour and wall thickness. Cervix: No evidence of mass or abnormal thickening. Peritoneal and Retroperitoneal Structures: No free fluid or abnormal fluid collections were identified within the abdomen or pelvis. No lymphadenopathy was noted. Bowel: The visualized bowel loops are normal in caliber and appearance. No evidence of bowel obstruction or wall thickening. Few tiny diverticular outpouchings of the sigmoid colon with clear adjacent fat planes Bones and Soft Tissues: OBX.5.1OBX.5.1.1 Lumbar spondylotic changes with L3/4 /OBX.5.1.1OBX.5.1.2 L4/5 double-level first-degree degenerative spondylolisthesis/OBX.5.1.2/OBX.5.1 Bilateral hip arthritic changes Lower chest cuts revealed mild right-sided pleural effusion with partial collapse of the right lower lobe and basal subsegmental consolidation opacity and atelectatic plates as well as bilateral basal nodular faint ground glass opacities IMPRESSION: 1. A small well-defined ovoid-shaped cyst is seen within the pancreatic body measuring about 22 x 23 mm along maximum transverse diameters with fine septa within. MRI with IV contrast is advised for future assessment. 2. Fatty hepatomegaly 3. Gall bladder stones 4. Right renal stone with no hydronephrosis 5. Right renal benign-looking cortical cysts ( [place] type I ) 6. circumferential mural thickening of the urinary bladder ( likely inflammatory ) cystitis with pelvic inflammatory changes ( pelvic inflammatory disease ) 7. 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 8. Right-sided mild pleural effusion with right lower lobar subsegmental consolidative changes for further evaluation by dedicated study Electronically signed by Chen Arriaga 05-06-2024 5:23 PM
--- NOTE | 2024-05-06 18:17 | History & Physical Report ---
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 Denies dysuria, urinary frequency, abdominal pain, flank or back pain, fever or chills. In ER patient afebrile, P: 96, R: 16, BP 142/78, 93% on room air No leukocytosis. Lactate: 2.9. Hgb: 11.2. Baseline in 's. UA: 3+ blood, 3+ leuk esterase, >50 WBC, >20 RBC, 4+ bacteria CT Abd/pelvis: Right lower calyceal tiny stone measuring 3.7 mm with no hydronephrosis. Three right renal cortical cysts no septa or enhancing soft tissue components, no calcifications 05/04/24 urine culture +ESBL E coli. 11/15/2023 positive for E. coli ESBL. At that time patient was asymptomatic and was discussed with ID who felt was likely colonization Today in ER given Rocephin then ertapenem Urine culture pending LR ordered Repeat Lactate Continue ertapenem CBC, BMP in am (3) Diabetes mellitus, type II: Plan: A1c: 9.0 on 11/13/2023 Insulin-dependent diabetes Hold home oral glycemic agents Basal bolus insulin per protocol (4) Abnormal CT of the abdomen: Plan: CT Abd/pelvis: 1. A small well-defined ovoid-shaped cyst is seen within the pancreatic body measuring about 22 x 23 mm along maximum transverse diameters with fine septa within. MRI with IV contrast is advised for future assessment. 2. Fatty hepatomegaly 3. Gall bladder stones 4. Right renal stone with no hydronephrosis 5. Right renal benign-looking cortical cysts ( [place] type I ) 6. circumferential mural thickening of the urinary bladder ( likely inflammatory) cystitis with pelvic inflammatory changes ( pelvic inflammatory disease ) 7. 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 Will likely need MRI to assess further (5) CVA (cerebral vascular accident): Plan: Hold aspirin currently with hematuria Continue Plavix, atorvastatin (6) CKD (chronic kidney disease), stage III: Plan: Cr: 1.48. Baseline Cr: 1.2-1.4 Monitor renal functions (7) Hypertension: Plan: Continue amlodipine (8) Chronic anemia: Plan: Hgb: 11.2. Baseline in 11's. Monitor H&H (9) Hypothyroidism: Plan: Continue levothyroxine (10) Dyslipidemia: Plan: Continue atorvastatin DVT Prophylaxis SCDs currently Admit med tele Full Code as per discussion with pt and pt's son Follows with Dr Zepeda for routine care Pt was seen and care coordinated with Dr Sena. See addendum I spent a total of 65 minutes reviewing notes, outpatient records, labs, medication, coordinating, documenting and providing care for this patient excluding time spent in the performance of separately billed services. 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 States couple days ago had blood tinged urine and had outpatient urine culture. Today had hematuria again and came to ER. Uses wheelchair and assists with transfers at baseline. Lives [facility]. Denies dysuria, urinary frequency, abdominal pain, suprapubic pain, back pain, flank pain, fever/chills, N/V/D/C, ANGULO, dizziness, CP, SOB, cough, sore throat, rhinorrhea, paresthesias, increased weakness, increased extremity edema, rashes. Allergies Allergy/AdvReac Type Severity Reaction Status Date / Time bacitracin Allergy Unknown Verified 04/24/24 10:47 clindamycin Allergy Unknown Verified 04/24/24 10:47 diltiazem [From Cardizem] Allergy Unknown Verified 04/24/24 10:47 NSAIDS (Non-Steroidal Allergy Unknown Verified 04/24/24 10:47 Anti-Inflamma Penicillins Allergy Unknown Verified 04/24/24 10:47 Sulfa (Sulfonamide Allergy Unknown Verified 04/24/24 10:47 Antibiotics) Home Medications Medication Instructions Recorded Confirmed Type aspirin 81 mg chewable tablet 81 mg PO QAM 05/06/22 05/06/24 History (Aspirin Childrens) atorvastatin 80 mg tablet 80 mg PO QAM 05/06/22 05/06/24 History clopidogrel 75 mg tablet 75 mg PO QAM 05/06/22 05/06/24 History insulin aspart U-100 100 unit/mL 8 unit subcut TIDM 05/06/22 05/06/24 History (3 mL) subcutaneous pen (Novolog FlexPen U-100 Insulin aspart) loratadine 10 mg tablet 10 mg PO DAILY 05/06/22 05/06/24 History metformin 500 mg tablet 500 mg PO BIDWMEAL 05/06/22 05/06/24 History magnesium oxide 400 mg PO BID #60 tabs 05/08/22 05/06/24 Rx acetaminophen 325 mg tablet 650 mg PO Q6 PRN Fever Or Pain 01/25/23 05/06/24 History glipizide 10 mg tablet, extended 10 mg PO QAM 01/25/23 05/06/24 History release 24 hr lutein 25 mg-zeaxanthin 5 mg 1 cap PO QAM 01/25/23 05/06/24 History capsule (Ocuvite Lutein) insulin glargine 100 unit/mL (3 52 unit subcut HS 03/18/23 05/06/24 History mL) subcutaneous pen (Lantus Solostar U-100 Insulin) levothyroxine 175 mcg capsule 175 mcg PO DAILYBB 05/27/23 05/06/24 History omeprazole 20 mg capsule,delayed 20 mg PO DAILYBB 05/27/23 05/06/24 History release amlodipine 2.5 mg tablet 2.5 mg PO QAM 11/11/23 05/06/24 History guaifenesin 600 mg tablet, 600 mg PO BID PRN COUGH/CONGESTION 11/11/23 05/06/24 History extended release 12 hr loperamide 2 mg capsule 2 mg PO .Q2 HOURS PRN Diarrhea 11/11/23 05/06/24 History clotrimazole-betamethasone 1 1 applic topical BID 05/06/24 05/06/24 History %-0.05 % topical cream glucosamine sulfate 500 mg tablet 500 mg PO DAILY 05/06/24 05/06/24 History (Glucosamine) propylene glycol 0.6 % eye drops 1 - 2 drp ophthalmic (eye) . 05/06/24 05/06/24 History (Systane Complete) NEEDED PRN DRYNESS Past Med/Surg History Problem List Abnormal CT of the abdomen CVA (cerebral vascular accident) Dyslipidemia Chronic anemia Diabetes mellitus, type II Hypertension Elevated lactic acid level (Acute) Hematuria (Acute) Complicated urinary tract infection (Acute) Ulcer of left lower leg (Acute) MRSA infection Esophageal spasm Dysphagia Ulcer of right lower extremity (Acute) Ulcer of left lower extremity (Acute) Skin lesion of left leg (Acute) Abnormal ankle brachial index (MINDY) (Acute) Lower extremity edema (Chronic) CKD (chronic kidney disease), stage III Hypothyroidism Basal cell carcinoma of lower leg (Acute) Open wound of right lower leg (Acute) Altered mental status (Acute) Hypomagnesemia (Acute) Weakness (Acute) Acute UTI (Acute) Hypomagnesemia History of breast cancer GERD (gastroesophageal reflux disease) Embolic stroke Altered mental state Medical History Encounter for pre-operative examination Encounter for observation for suspected aspirated (inhaled) foreign body ruled out Choking episode History of esophageal stricture CKD (chronic kidney disease) Hypothyroidism (acquired) Diabetes Vitamin D deficiency SCC (squamous cell carcinoma) Right hand Gout Generalized osteoarthritis Breast cancer, right BCC (basal cell carcinoma of skin) Nose, left eye brow Bakers cyst Actinic keratosis Osteoarthritis Surgical History Status post right breast lumpectomy Family History Father Cancer Social History Smoking Status: Never smoker Second Hand Exposure: No; Hx Alcohol Use: No Hx Substance Use: No Preferred Language: Algerian Communication Ability: Effective Visual Impairment: Limited Hearing Ability: Hard of Hearing 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 Beliefs That Will Affect Care: None Current Living Situation: Personal Care Facility Current Living Situation Comment: [facility] [place] current occupational status: retired How many Children do You have: 3 Feels Safe at Home: Yes Childhood Exposure to Second-Hand Smoke: No Diet: regular caffeine: Yes Physical Activity Frequency: Does not Exercise Do you think of yourself as: straight/heterosexual Assistive Devices: Wheelchair Review of Systems Review of Systems: All systems reviewed & are unremarkable except as noted in HPI & below Physical Exam Physical Exam: PE per Dr Sena Results & Data Results & Data Vital Signs (Past 12 Hours) Vital Signs Temp Pulse Pulse Resp BP BP Pulse Ox 05/06/24 18:09 88 26 H 182/95 H 97 05/06/24 16:30 86 22 150/89 H 97 05/06/24 16:11 93 H 05/06/24 14:48 94 H 16 93 05/06/24 14:47 36.8 C 95 H 16 142/78 H 93 05/06/24 14:38 36.8 C 96 H 16 142/78 H 93 O2 Del Method 05/06/24 18:09 Room Air 05/06/24 16:30 Room Air 05/06/24 16:11 05/06/24 14:48 Room Air 05/06/24 14:47 Room Air 05/06/24 14:38 Room Air Laboratory Results Short CBC 05/06/24 Range/Units 15:00 WBC 5.68 (4.8-10.8) K/ul Hgb 11.2 L (12.0-16.0) g/dl Hct 34.2 L (37.0-47.0) % Plt Count 222 (130-400) K/uL BMP 05/06/24 15:00 Sodium 135 L Potassium 3.9 Chloride 100 Carbon Dioxide 26 BUN 17 Creatinine 1.48 H Glucose 159 H Calcium 9.3 Liver Function 05/06/24 Range/Units 15:00 Total Bilirubin 0.8 (0.2-1.0) mg/dl AST 26 (13-39) U/L ALT 16 (7-52) U/L Alkaline Phosphatase 123 H (34-104) U/L Albumin 3.7 (3.4-5.0) gm/dl Urine 05/06/24 Range/Units 15:51 Urine Color Red Urine Appearance Turbid A (Clear) Urine pH 8.0 H (4.5-7.5) Ur Specific [place] 1.014 (1.000-1.030) Urine Protein 3+ H (Negative) Urine Glucose (UA) Negative (Negative) Diagnostic Findings Abdomen/Pelvis CT 05/06/24 15:32 EXAM: CT abd pelvis IV con only CLINICAL HISTORY: gross hematuria abdominal pains appendix present injected 94ml of optiray 320 al, ek INPATIENT TECHNIQUE: CT of the abdomen and pelvis was performed with contrast, with the following protocol: axial images with, and reconstructed coronal and sagittal images. 94 ml of Optiray was administered intravenously. One of the following dose reduction techniques was utilized for this exam: Automated exposure control, adjustment of the mA and/or kV according to patient size, and use of iterative reconstruction. COMPARISON: No prior studies are available for comparison. FINDINGS: Abdomen: Liver: Enlarged in size with homogenous low attenuation texture denoting fatty infiltration. No focal lesions, cysts, or masses were identified. Hepatic vasculature and biliary ducts are unremarkable. Gallbladder and Biliary System: The gallbladder is partly distended with a few tiny dense stones. No wall thickening or pericholecystic fluid was identified. The common bile duct is slightly prominent reaching 6 mm Pancreas: Diffuse fatty atrophic changes of the pancreatic head, body, and tail with few tiny calcific foci. a small well-defined ovoid-shaped cyst is seen within the pancreatic body measuring about 22 x 23 mm along maximum transverse diameters with fine septa within. The pancreatic duct is dilated reaching 7.4 mm Spleen: Normal in size, shape, and density. No splenic lesions or masses were identified. Kidneys and Adrenal Glands: Both kidneys are normal in size, shape, and position. Cortical thickness is within normal limits. Right lower calyceal tiny stone measuring 3.7 mm with no hydronephrosis. Three right renal cortical cysts ( one at the upper pole and two at the lower pole ) measure 31 mm, 6 mm, and 66 mm along maximum transverse diameters, no septa or enhancing soft tissue components, no calcifications Adrenal glands are unremarkable with no evidence of masses or hyperplasia.6 Pelvis: Urinary Bladder: Diffuse circumferential mural thickening ( 11 mm ) with mucosal enhancement and strands smudging of the perivesical pelvic fat planes, no definite mass lesions or diverticular outpouchings Uterus: Normal in size and contour. No masses or abnormal thickening. Ovaries: Not well visualized but no gross abnormalities were noted. Vagina: Normal in contour and wall thickness. Cervix: No evidence of mass or abnormal thickening. Peritoneal and Retroperitoneal Structures: No free fluid or abnormal fluid collections were identified within the abdomen or pelvis. No lymphadenopathy was noted. Bowel: The visualized bowel loops are normal in caliber and appearance. No evidence of bowel obstruction or wall thickening. Few tiny diverticular outpouchings of the sigmoid colon with clear adjacent fat planes Bones and Soft Tissues: [id number] Lumbar spondylotic changes with L3/4 /[id number].5.1.2 L4/5 double-level first-degree degenerative spondylolisthesis/OBX.5.1.2/OBX.5.1 Bilateral hip arthritic changes Lower chest cuts revealed mild right-sided pleural effusion with partial collapse of the right lower lobe and basal subsegmental consolidation opacity and atelectatic plates as well as bilateral basal nodular faint ground glass opacities IMPRESSION: 1. A small well-defined ovoid-shaped cyst is seen within the pancreatic body measuring about 22 x 23 mm along maximum transverse diameters with fine septa within. MRI with IV contrast is advised for future assessment. 2. Fatty hepatomegaly 3. Gall bladder stones 4. Right renal stone with no hydronephrosis 5. Right renal benign-looking cortical cysts ( [place] type I ) 6. circumferential mural thickening of the urinary bladder ( likely inflammatory ) cystitis with pelvic inflammatory changes ( pelvic inflammatory disease ) 7. 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 8. Right-sided mild pleural effusion with right lower lobar subsegmental consolidative changes for further evaluation by dedicated study Electronically signed by Chen Arriaga 05-06-2024 5:23 PM Supervising Physician Co-Signing Physician Notes Patient is an 88-year-old female with history of CVA, squamous cell carcinoma, hypothyroidism, diabetes mellitus type 2, CKD stage III, morbid obesity and other medical problems presents with history of hematuria since 2 days duration. Patient denies any abdominal/flank pain, dysuria, fever, chills, increased urinary frequency, chest pain, dyspnea, nausea, vomiting, abdominal pain. Outpatient blood cultures grew ESBL E. coli. Patient is on aspirin and Plavix for CVA. I personally reviewed blood work and imaging studies. Hemoglobin is at baseline. Creatinine 1.4, glucose 159, lactic acid elevated 2.9. CT abdomen showed well-defined ovoid cyst in the pancreatic body measuring 2.2 to 2.3 cm, findings suggestive of fatty liver, gallbladder stones, nephrolithiasis, right renal cortical cysts, urinary bladder wall thickening with pelvic inflammatory changes and diverticular disease. Urinalysis suggestive of UTI. Physical Exam: Vitals signs as noted above General Appearance: Morbidly obese, no apparent distress Head: normocephalic, Atraumatic Eyes: normal inspection, EOMI Neck: supple, Trachea midline Respiratory/Chest: Normal breath sounds, CTA, No accessory muscle use Cardiovascular: S1, S2, No murmur Abdomen/GI:Soft, Non tender, Bowel sounds present Extremities/Musculoskeletal:normal inspection, 1+edema Neurologic/Psych:AAO, grossly no focal neurological deficits Skin: normal color, warm Complicated urinary tract infection Hematuria secondary to above Chronic anemia Incidental finding of pancreatic cyst CKD stage III Lactic acidosis Morbid obesity Diabetes mellitus type 2 Ambulatory dysfunction--wheelchair-bound at baseline H/O CVA Agree with starting IV ertapenem IV fluids, trend lactic acid levels Monitor H&H and transfuse as needed Needs further workup on pancreatic cyst eventually as outpatient if patient wants to pursue Monitor renal function and avoid nephrotoxic agents as able Fall precautions Adjust insulin as needed, monitor blood glucose levels Will continue Plavix with caution, hold aspirin for now Resume aspirin if hemoglobin stable tomorrow I personally interviewed and examined at bedside. Patient's care is coordinated with Aleyda Rogers PA-C. I have reviewed the advanced practitioner's documentation, and I agree with plan of care. Please refer to the documentation above for details of patient's presentation and for discussion of other issues. I spent a total [id number] coordinating, documenting, and providing care for this patient excluding time spent in the performance of separately billed services.
[2024-05-06] MEDS: ERTAPENEM 1000MG 1,000 MG/10 ML SYR IV STA (18:20)
[2024-05-06] MEDS ORDERED: hydrALAZINE 10 MG TAB PO PRN (19:20)
[2024-05-06] MEDS: LACTATED RINGER'S 1,000 ML IV ONE (19:29)
[2024-05-06 19:52] LABS: Hematocrit (blood only) 35.7 % (37.0-47.0); Hemoglobin 11.3 g/dl (12.0-16.0)
[2024-05-06] MEDS ORDERED: POLYETHYLENE (MIRALAX) 17 GM PACK PO PRN (22:08)
[2024-05-06] MEDS ORDERED: GLUCAGON FOR INJ 1 MG VIAL SQ PRN (22:08)
[2024-05-06] MEDS ORDERED: CARBOHYDRATES FOR HYPOGLYCEMIA PO PRN (22:08)
[2024-05-06] MEDS ORDERED: GLUCOSE 40% GEL 15 GM TUBE PO PRN (22:08)
[2024-05-06] MEDS ORDERED: ACETAMINOPHEN 325 MG TAB PO PRN (22:08)
[2024-05-06] MEDS ORDERED: ONDANSETRON INJ 2 MG/ML 2 ML VIAL IV PRN (22:08)
[2024-05-06] MEDS ORDERED: DEXTROSE 50% 50 ML SYRINGE IV PRN (22:08)
[2024-05-06] MEDS ORDERED: GLUCOSE 10 TAB/TUBE PO PRN (22:08)
[2024-05-06] MEDS: INSULIN ASPART PER UNIT CHARGE SC SCH (22:51)
[2024-05-06] MEDS: LANTUS PER UNIT CHARGE SQ SCH (22:52)
[2024-05-06] MEDS: MAGNESIUM OXIDE 400 MG TAB PO SCH (22:52)
[2024-05-06] MEDS: Patient's HEIGHT &/or WEIGHT Needed STA (22:52)
[2024-05-07] MEDS: LEVOTHYROXINE SODIUM 175 MCG TABLET PO SCH (04:46)
[2024-05-07] MEDS: PANTOprazole 40 MG TAB PO SCH (04:46)
--- NOTE | 2024-05-07 07:16 | Hospitalist Progress Note ---
Date of Service May 07, 2024 Assessment & Plan (1) Complicated urinary tract infection: (2) Hematuria: (3) Diabetes mellitus, type II: (4) Abnormal CT of the abdomen: (5) CVA (cerebral vascular accident): (6) CKD (chronic kidney disease), stage III: (7) Hypertension: (8) Chronic anemia: (9) Hypothyroidism: (10) Dyslipidemia: Plan Ms. 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 Denies dysuria, urinary frequency, abdominal pain, flank or back pain, fever or chills. #Acute complicated cystitis #Hematuria In ER patient afebrile, P: 96, R: 16, BP 142/78, 93% on room air No leukocytosis. Lactate: 2.9. Hgb: 11.2. Baseline in 's. UA: 3+ blood, 3+ leuk esterase, >50 WBC, >20 RBC, 4+ bacteria CT Abd/pelvis: Right lower calyceal tiny stone measuring 3.7 mm with no hydronephrosis. Three right renal cortical cysts no septa or enhancing soft tissue components, no calcifications 05/04/24 urine culture +ESBL E coli. 11/15/2023 positive for E. coli ESBL. At that time patient was asymptomatic and was discussed with ID who felt was likely colonization Today in ER given Rocephin then ertapenem Urine culture with ecoli, susceptibilities pending Continue ertapenem CBC, BMP in am # Diabetes mellitus, type II: A1c: 9.0 on 11/13/2023 Insulin-dependent diabetes Hold home oral glycemic agents Basal bolus insulin per protocol # Abnormal CT of the abdomen: CT Abd/pelvis: 1. A small well-defined ovoid-shaped cyst is seen within the pancreatic body measuring about 22 x 23 mm along maximum transverse diameters with fine septa within. MRI with IV contrast is advised for future assessment. 2. Fatty hepatomegaly 3. Gall bladder stones 4. Right renal stone with no hydronephrosis 5. Right renal benign-looking cortical cysts ( [place] type I ) 6. circumferential mural thickening of the urinary bladder ( likely inflammatory) cystitis with pelvic inflammatory changes ( pelvic inflammatory disease ) 7. 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 Will likely need MRI to assess further, can pursue as OP # CVA (cerebral vascular accident): Hold aspirin currently with hematuria Continue Plavix, atorvastatin # CKD (chronic kidney disease), stage III: Cr: 1.48. Baseline Cr: 1.2-1.4 Monitor renal functions #Hypertension: Continue amlodipine # Chronic anemia: Hgb: 11.2. Baseline in . Monitor H&H #Hypothyroidism: Continue levothyroxine #Dyslipidemia: Continue atorvastatin DVT Prophylaxis SCDs currently PT/OT ordered, dispo contingent on cultures Full Code as per discussion with pt and pt's son Follows with Dr Zepeda for routine care, lives in personal [place] [facility] Admission and Anticipated Discharge Date Admission Date: May 06, 2024 Subjective NAEO Eating breakfast this am, alert to self Denies any abdominal pain or concerns states she doesn't know how she feels Physical Exam Constitutional: WD/WN, vitals as above Respiratory: normal respiratory effort, lungs clear to auscultation Cardiovascular: RRR, no murmur, no edema Gastrointestinal (Abdomen): normal bowel sounds, soft, nontender, no hepatosplenomegaly Results & Data Results & Data Vital Signs (Past 12 Hours) Vital Signs Temp Pulse Pulse Resp BP BP BP 05/07/24 02:39 36.9 C 92 H 16 137/71 05/06/24 23:59 99 H 05/06/24 22:23 05/06/24 22:08 36.8 C 113 H 18 176/82 H 05/06/24 21:15 97 H 24 160/88 H Pulse Ox O2 Del Method 05/07/24 02:39 95 Room Air 05/06/24 23:59 05/06/24 22:23 Room Air 05/06/24 22:08 97 Room Air 05/06/24 21:15 Laboratory Results Short CBC 05/06/24 05/06/24 05/07/24 Range/Units 15:00 19:33 07:27 WBC 5.68 5.94 (4.8-10.8) K/ul Hgb 11.2 L 11.3 L 10.8 L (12.0-16.0) g/dl Hct 34.2 L 35.7 L 33.7 L (37.0-47.0) % Plt Count 222 207 (130-400) K/uL BMP 05/06/24 05/07/24 15:00 07:27 Sodium 135 L 135 L Potassium 3.9 4.4 Chloride 100 99 Carbon Dioxide 26 29 BUN 17 17 Creatinine 1.48 H 1.34 H Glucose 159 H 226 H Calcium 9.3 8.9 Liver Function 05/06/24 Range/Units 15:00 Total Bilirubin 0.8 (0.2-1.0) mg/dl AST 26 (13-39) U/L ALT 16 (7-52) U/L Alkaline Phosphatase 123 H (34-104) U/L Albumin 3.7 (3.4-5.0) gm/dl Urine 05/06/24 Range/Units 15:51 Urine Color Red Urine Appearance Turbid A (Clear) Urine pH 8.0 H (4.5-7.5) Ur Specific [place] 1.014 (1.000-1.030) Urine Protein 3+ H (Negative) Urine Glucose (UA) Negative (Negative) Medications Administered Home Medications Medication Instructions Recorded Confirmed Last Taken aspirin 81 mg chewable tablet 81 mg PO QAM 05/06/22 05/06/24 Unknown (Aspirin Childrens) atorvastatin 80 mg tablet 80 mg PO QA 05/06/22 05/06/24 Unknown clopidogrel 75 mg tablet 75 mg PO QA 05/06/22 05/06/24 Unknown insulin aspart U-100 100 unit/mL 8 unit subcut TIDM 05/06/22 05/06/24 Unknown (3 mL) subcutaneous pen (Novolog FlexPen U-100 Insulin aspart) loratadine 10 mg tablet 10 mg PO DAILY 05/06/22 05/06/24 Unknown metformin 500 mg tablet 500 mg PO BIDWMEAL 05/06/22 05/06/24 Unknown magnesium oxide 400 mg PO BID #60 tabs 05/08/22 05/06/24 Unknown acetaminophen 325 mg tablet 650 mg PO Q6 PRN Fever Or Pain 01/25/23 05/06/24 Unk nown glipizide 10 mg tablet, extended 10 mg PO QAM 01/25/23 05/06/24 Unknown release 24 hr lutein 25 mg-zeaxanthin 5 mg 1 cap PO QAM 01/25/23 05/06/24 Unknown capsule (Ocuvite Lutein) insulin glargine 100 unit/mL (3 52 unit subcut HS 03/18/23 05/06/24 Unknown mL) subcutaneous pen (Lantus Solostar U-100 Insulin) levothyroxine 175 mcg capsule 175 mcg PO DAILYBB 05/27/23 05/06/24 Unknown omeprazole 20 mg capsule,delayed 20 mg PO DAILYBB 05/27/23 05/06/24 Unknown release amlodipine 2.5 mg tablet 2.5 mg PO QAM 11/11/23 05/06/24 Unknown guaifenesin 600 mg tablet, 600 mg PO BID PRN COUGH/CONGESTION 11/11/23 05/06/24 Unknown extended release 12 hr loperamide 2 mg capsule 2 mg PO .Q2 HOURS PRN Diarrhea 11/11/23 05/06/24 Unknown clotrimazole-betamethasone 1 1 applic topical BID 05/06/24 05/06/24 Unknown %-0.05 % topical cream glucosamine sulfate 500 mg tablet 500 mg PO DAILY 05/06/24 05/06/24 Unknown (Glucosamine) propylene glycol 0.6 % eye drops 1 - 2 drp ophthalmic (eye) . 05/06/24 05/06/24 Unknown (Systane Complete) NEEDED PRN DRYNESS Active Medications Generic Name Dose Route Start Last Admin Trade Name Freq PRN Reason Stop Dose Admin Amlodipine Besylate 2.5 mg 05/07/24 09:00 05/07/24 08:40 Amlodipine Besylate 5 Mg Tab PO 06/06/24 08:59 2.5 mg QAM JOSUÉ Administration Atorvastatin Calcium 80 mg 05/07/24 09:00 05/07/24 08:41 Atorvastatin 40 Mg Tab PO 06/06/24 08:59 80 mg QAM JOSUÉ Administration Clopidogrel Bisulfate 75 mg 05/07/24 09:00 05/07/24 08:41 Clopidogrel Bisulfate 75 Mg Tab PO 06/06/24 08:59 75 mg QAM JOSUÉ Administration Insulin Aspart 0 units 05/06/24 22:08 05/07/24 08:55 Insulin Aspart Per Unit Charge SC 06/05/24 22:07 3 units ACHS JOSUÉ Administration Insulin Glargine 40 units 05/06/24 22:08 05/06/24 22:52 Lantus Per Unit Charge SQ 06/05/24 22:07 40 units HS JOSUÉ Administration Levothyroxine Sodium 175 mcg 05/07/24 06:30 05/07/24 04:46 Levothyroxine Sodium 175 Mcg Tablet PO 06/06/24 06:29 175 mcg DAILYBB JOSUÉ Administration Loratadine 10 mg 05/07/24 09:00 05/07/24 08:42 Loratadine 10 Mg Tab PO 06/06/24 08:59 10 mg DAILY JOSUÉ Administration Magnesium Oxide 400 mg 05/06/24 22:08 05/07/24 08:42 Magnesium Oxide 400 Mg Tab PO 06/05/24 22:07 400 mg BID JOSUÉ Administration Pantoprazole Sodium 40 mg 05/07/24 06:30 05/07/24 04:46 Pantoprazole 40 Mg Tab PO 06/06/24 06:29 40 mg DAILYBB JOSUÉ Administration
[2024-05-07 08:06] LABS: Hematocrit (blood only) 33.7 % (37.0-47.0); Hemoglobin 10.8 g/dl (12.0-16.0); Mean Corpuscular Hemoglobin 27.1 pg (25.0-34.0); Mean Corpuscular Volume 84.5 fL (80.0-100.0); Mean Platelet Volume 11.1 fL (9.4-12.4); Platelet Count 207 K/uL (130-400); RDW Coefficient of Variation 14.9 % (11.5-14.5); RDW Standard Deviation 45.8 fL (36.4-46.3); Red Blood Count 3.99 M/uL (4.20-5.40); White Blood Count 5.94 K/ul (4.8-10.8)
[2024-05-07 08:07] LABS: BUN Creatinine Ratio 12.7 (10-20); Calcium 8.9 mg/dl (8.6-10.3); Creatinine Clr Calc Pharmacy 49.6 ml/min; Magnesium 1.6 mg/dl (1.7-2.4); Potassium 4.4 mmol/L (3.5-5.1)
[2024-05-07] MEDS: amLODIPine BESYLATE 5 MG TAB PO SCH (08:40)
[2024-05-07] MEDS: ATORVASTATIN 40 MG TAB PO SCH (08:41)
[2024-05-07] MEDS: CLOPIDOGREL BISULFATE 75 MG TAB PO SCH (08:41)
[2024-05-07] MEDS: LORATADINE 10 MG TAB PO SCH (08:42)
[2024-05-07 09:05] LABS: Estimated Average Glucose 220 mg/dl; Hemoglobin A1C 9.3 % (4.5-5.6)
[2024-05-07] MEDS: ERTAPENEM 1000MG 1,000 MG/10 ML SYR IV SCH (17:33)
[2024-05-07 19:44] LABS: A calco-baum cmplx NotReported Not Detected (NotDetected); Bact fragilis Not Reported Not Detected (NotDetected); Blood Culture Id Panel See PCR Comment (NotDetected); C auris Not Reported Not Detected (NotDetected); Calbicans Not Reported Not Detected (NotDetected); Candida glabrata Not Reported Not Detected (NotDetected); Candida krusei Not Reported Not Detected (NotDetected); Cneoformans/gatti Not Reported Not Detected (NotDetected); Cparapsilosis Not Reported Not Detected (NotDetected); E cloacae compx Not Reported Not Detected (NotDetected); Efaecalis Not Reported Not Detected (NotDetected); Efaecium Not Reported Not Detected (NotDetected); Enterobacterales Not Reported Not Detected (NotDetected); Escherichia coli Not Reported Not Detected (NotDetected); H influenzae Not Reported Not Detected (NotDetected); K aerogenes Not Reported Not Detected (NotDetected); Koxytoca Not Reported Not Detected (NotDetected); Kpneumoniae grp Not Reported Not Detected (NotDetected); Lmonocyt Not Reported Not Detected (NotDetected); N meningitidis Not Reported Not Detected (NotDetected); P aeruginosa Not Reported Not Detected (NotDetected); Proteus spp Not Reported Not Detected (NotDetected); Salmonella spp Not Reported Not Detected (NotDetected); Staph lugdunensis Not Reported Not Detected (NotDetected); Staph spp. Not Reported DETECTED (NotDetected); Staphaureus Not Reported Not Detected (NotDetected); Staphepi Not Reported Not Detected (NotDetected); Stenmaltophilia Not Reported Not Detected (NotDetected); Strep agal(GrpB) Not Reported Not Detected (NotDetected); Strep pneum Not Reported Not Detected (NotDetected); Strep pyog (GrpA) Not Reported Not Detected (NotDetected); Strep spp Not Reported Not Detected (NotDetected)
[2024-05-07 19:55] LABS: Staphylococcus spp. DETECTED (NotDetected)
[2024-05-07] MEDS: INSULIN ASPART PER UNIT CHARGE SC SCH (20:55)
[2024-05-07] MEDS: LANTUS PER UNIT CHARGE SQ SCH (20:55)
[2024-05-08 07:58] LABS: BUN Creatinine Ratio 14.2 (10-20); Calcium 8.8 mg/dl (8.6-10.3); Creatinine Clr Calc Pharmacy 31.3 ml/min; Potassium 4.2 mmol/L (3.5-5.1)
[2024-05-08 08:00] LABS: Hematocrit (blood only) 32.1 % (37.0-47.0); Hemoglobin 10.6 g/dl (12.0-16.0); Mean Corpuscular Hemoglobin 27.5 pg (25.0-34.0); Mean Corpuscular Volume 83.2 fL (80.0-100.0); Mean Platelet Volume 11.3 fL (9.4-12.4); Platelet Count 212 K/uL (130-400); RDW Coefficient of Variation 15.3 % (11.5-14.5); RDW Standard Deviation 46.4 fL (36.4-46.3); Red Blood Count 3.86 M/uL (4.20-5.40); White Blood Count 5.16 K/ul (4.8-10.8)
[2024-05-08] MEDS: FOSFOMYCIN TROMETHAMINE 3 GM PACKET PO SCH (09:33)
--- NOTE | 2024-05-08 09:57 | Hospitalist Progress Note ---
Date of Service May 08, 2024 Assessment & Plan (1) Acute cystitis with hematuria: (2) Hematuria: (3) Diabetes mellitus, type II: (4) Abnormal CT of the abdomen: (5) CVA (cerebral vascular accident): (6) CKD (chronic kidney disease), stage III: (7) Hypertension: (8) Chronic anemia: (9) Hypothyroidism: (10) Dyslipidemia: Plan Ms. 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 Denies dysuria, urinary frequency, abdominal pain, flank or back pain, fever or chills. #Acute uncomplicated cystitis (no systemic effects) #Hematuria In ER patient afebrile, P: 96, R: 16, BP 142/78, 93% on room air No leukocytosis. Lactate: 2.9. Hgb: 11.2. Baseline in '. UA: 3+ blood, 3+ leuk esterase, >50 WBC, >20 RBC, 4+ bacteria CT Abd/pelvis: Right lower calyceal tiny stone measuring 3.7 mm with no hydronephrosis. Three right renal cortical cysts no septa or enhancing soft tissue components, no calcifications 05/04/24 urine culture +ESBL E coli. 11/15/2023 positive for E. coli ESBL. At that time patient was asymptomatic and was discussed with ID who felt was likely colonization ER Rocephin then ertapenem for 2 doses Urine with ESBL: Plan for fosfomycin x 1 # Diabetes mellitus, type II: A1c: 9.0 on 11/13/2023 Insulin-dependent diabetes Hold home oral glycemic agents Basal bolus insulin per protocol Pharmacy adjusting insulin # Abnormal CT of the abdomen: CT Abd/pelvis: 1. A small well-defined ovoid-shaped cyst is seen within the pancreatic body measuring about 22 x 23 mm along maximum transverse diameters with fine septa within. MRI with IV contrast is advised for future assessment. 2. Fatty hepatomegaly 3. Gall bladder stones 4. Right renal stone with no hydronephrosis 5. Right renal benign-looking cortical cysts ( [place] type I ) 6. circumferential mural thickening of the urinary bladder ( likely inflammatory) cystitis with pelvic inflammatory changes ( pelvic inflammatory disease ) 7. 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 Will likely need MRI to assess further, can pursue as OP # CVA (cerebral vascular accident): Hold aspirin currently with hematuria Continue Plavix, atorvastatin # CKD (chronic kidney disease), stage III: Cr: 1.48. Baseline Cr: 1.2-1.4 Monitor renal functions #Hypertension: Continue amlodipine # Chronic anemia: Hgb: 11.2. Baseline in . Monitor H&H #Hypothyroidism: Continue levothyroxine #Dyslipidemia: Continue atorvastatin DVT Prophylaxis SCDs currently PT/OT pending, likely dispo 1-2 days Full Code as per discussion with pt and pt's son Follows with Dr Zepeda for routine care, lives in personal senior care [facility] Admission and Anticipated Discharge Date Admission Date: May 06, 2024 Subjective Patient denies any new concerns, states she isn't sure how she feels but she doesnt feel bad Denies chest pain, palpitations or other acute concerns No nausea vomiting or other issues Physical Exam Constitutional: WD/WN, vitals as above Respiratory: normal respiratory effort, lungs clear to auscultation Cardiovascular: RRR, no murmur, no edema Gastrointestinal (Abdomen): normal bowel sounds, soft, nontender, no hepatosplenomegaly Results & Data Results & Data Vital Signs (Past 12 Hours) Vital Signs Temp Pulse Pulse Resp BP BP Pulse Ox 05/08/24 07:56 36.5 C 87 18 125/69 91 05/08/24 07:26 87 05/08/24 03:30 36.7 C 97 H 20 132/74 95 05/07/24 23:38 93 H 05/07/24 22:50 36.7 C 92 H 18 144/72 H 90 O2 Del Method 05/08/24 07:56 Room Air 05/08/24 07:26 05/08/24 03:30 Room Air 05/07/24 23:38 05/07/24 22:50 Room Air Laboratory Results Short CBC 05/08/24 Range/Units 07:22 WBC 5.16 (4.8-10.8) K/ul Hgb 10.6 L (12.0-16.0) g/dl Hct 32.1 L (37.0-47.0) % Plt Count 212 (130-400) K/uL BMP 05/08/24 07:22 Sodium 135 L Potassium 4.2 Chloride 99 Carbon Dioxide 28 BUN 22 Creatinine 1.55 H Glucose 222 H Calcium 8.8 Medications Administered Home Medications Medication Instructions Recorded Confirmed Last Taken aspirin 81 mg chewable tablet 81 mg PO QAM 05/06/22 05/06/24 Unknown (Aspirin Childrens) atorvastatin 80 mg tablet 80 mg PO QAM 05/06/22 05/06/24 Unknown clopidogrel 75 mg tablet 75 mg PO QAM 05/06/22 05/06/24 Unknown insulin aspart U-100 100 unit/mL 8 unit subcut TIDM 05/06/22 05/06/24 Unknown (3 mL) subcutaneous pen (Novolog FlexPen U-100 Insulin aspart) loratadine 10 mg tablet 10 mg PO DAILY 05/06/22 05/06/24 Unknown metformin 500 mg tablet 500 mg PO BIDWMEAL 05/06/22 05/06/24 Unknown magnesium oxide 400 mg PO BID #60 tabs 05/08/22 05/06/24 Unknown acetaminophen 325 mg tablet 650 mg PO Q6 PRN Fever Or Pain 01/25/23 05/06/24 Unknown glipizide 10 mg tablet, extended 10 mg PO QAM 01/25/23 05/06/24 Unknown release 24 hr lutein 25 mg-zeaxanthin 5 mg 1 cap PO QAM 01/25/23 05/06/24 Unknown capsule (Ocuvite Lutein) insulin glargine 100 unit/mL (3 52 unit subcut HS 03/18/23 05/06/24 Unknown mL) subcutaneous pen (Lantus Solostar U-100 Insulin) levothyroxine 175 mcg capsule 175 mcg PO DAILYBB 05/27/23 05/06/24 Unknown omeprazole 20 mg capsule,delayed 20 mg PO DAILYBB 05/27/23 05/06/24 Unknown release amlodipine 2.5 mg tablet 2.5 mg PO QAM 11/11/23 05/06/24 Unknown guaifenesin 600 mg tablet, 600 mg PO BID PRN COUGH/CONGESTION 11/11/23 05/06/24 Unknown extended release 12 hr loperamide 2 mg capsule 2 mg PO .Q2 HOURS PRN Diarrhea 11/11/23 05/06/24 Unknown clotrimazole-betamethasone 1 1 applic topical BID 05/06/24 05/06/24 Unknown %-0.05 % topical cream glucosamine sulfate 500 mg tablet 500 mg PO DAILY 05/06/24 05/06/24 Unknown (Glucosamine) propylene glycol 0.6 % eye drops 1 - 2 drp ophthalmic (eye) . 05/06/24 05/06/24 Unknown (Systane Complete) NEEDED PRN DRYNESS Active Medications Generic Name Dose Route Start Last Admin Trade Name Sandy PRN Reason Stop Dose Admin Amlodipine Besylate 2.5 mg 05/07/24 09:00 05/08/24 08:34 Amlodipine Besylate 5 Mg Tab PO 06/06/24 08:59 2.5 mg QAM JOSUÉ Administration Atorvastatin Calcium 80 mg 05/07/24 09:00 05/08/24 08:36 Atorvastatin 40 Mg Tab PO 06/06/24 08:59 80 mg QAM JOSUÉ Administration Clopidogrel Bisulfate 75 mg 05/07/24 09:00 05/08/24 08:35 Clopidogrel Bisulfate 75 Mg Tab PO 06/06/24 08:59 75 mg QAM JOSUÉ Administration Insulin Aspart 0 units 05/07/24 20:50 05/08/24 09:19 Insulin Aspart Per Unit Charge SC 06/06/24 20:49 6 units ACHS JOSUÉ Administration Insulin Glargine 50 units 05/07/24 21:00 05/07/24 20:55 Lantus Per Unit Charge SQ 06/06/24 20:59 50 units HS JOSUÉ Administration Levothyroxine Sodium 175 mcg 05/07/24 06:30 05/08/24 05:53 Levothyroxine Sodium 175 Mcg Tablet PO 06/06/24 06:29 175 mcg DAILYBB JOSUÉ Administration Loratadine 10 mg 05/07/24 09:00 05/08/24 08:35 Loratadine 10 Mg Tab PO 06/06/24 08:59 10 mg DAILY JOSUÉ Administration Magnesium Oxide 400 mg 05/06/24 22:08 05/08/24 08:36 Magnesium Oxide 400 Mg Tab PO 06/05/24 22:07 400 mg BID JOSUÉ Administration Pantoprazole Sodium 40 mg 05/07/24 06:30 05/08/24 05:53 Pantoprazole 40 Mg Tab PO 06/06/24 06:29 40 mg DAILYBB JOSUÉ Administration
[2024-05-09 08:12] LABS: Hematocrit (blood only) 33.3 % (37.0-47.0); Hemoglobin 10.7 g/dl (12.0-16.0); Mean Corpuscular Hemoglobin 27.3 pg (25.0-34.0); Mean Corpuscular Hgb Conc 32.1 g/dL (32.0-36.0); Mean Corpuscular Volume 84.9 fL (80.0-100.0); Mean Platelet Volume 11.2 fL (9.4-12.4); Platelet Count 213 K/uL (130-400); RDW Coefficient of Variation 15.3 % (11.5-14.5); Red Blood Count 3.92 M/uL (4.20-5.40); White Blood Count 6.05 K/ul (4.8-10.8)
[2024-05-09 08:22] LABS: BUN Creatinine Ratio 13.7 (10-20); Calcium 8.7 mg/dl (8.6-10.3); Creatinine Clr Calc Pharmacy 28.2 ml/min; Magnesium 1.9 mg/dl (1.7-2.4); Phosphorus 3.2 mg/dl (2.5-4.9); Potassium 4.1 mmol/L (3.5-5.1)
--- NOTE | 2024-05-09 10:31 | Hospitalist Progress Note ---
Date of Service May 09, 2024 Assessment & Plan (1) Acute cystitis with hematuria: (2) Hematuria: (3) Diabetes mellitus, type II: (4) Abnormal CT of the abdomen: (5) CVA (cerebral vascular accident): (6) CKD (chronic kidney disease), stage III: (7) Hypertension: (8) Chronic anemia: (9) Hypothyroidism: (10) Dyslipidemia: Plan Ms. 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 Denies dysuria, urinary frequency, abdominal pain, flank or back pain, fever or chills. Since admission, patient has remained at baseline. No acute concerns noted including no urinary complaints. Spoke to son who reports patient is at baseline functionally. #Positive blood culture -likely contaminant #Acute uncomplicated cystitis (no systemic effects) #Hematuria In ER patient afebrile, P: 96, R: 16, BP 142/78, 93% on room air No leukocytosis. Lactate: 2.9. Hgb: 11.2. Baseline in 11's. UA: 3+ blood, 3+ leuk esterase, >50 WBC, >20 RBC, 4+ bacteria CT Abd/pelvis: Right lower calyceal tiny stone measuring 3.7 mm with no hydrone phrosis. Three right renal cortical cysts no septa or enhancing soft tissue components, no calcifications 05/04/24 urine culture +ESBL E coli. 11/15/2023 positive for E. coli ESBL. At that time patient was asymptomatic and was discussed with ID who felt was likely colonization ER Rocephin then ertapenem for 2 doses Urine with ESBL: Plan for fosfomycin x 1 # Diabetes mellitus, type II: A1c: 9.0 on 11/13/2023 Insulin-dependent diabetes Hold home oral glycemic agents Basal bolus insulin per protocol Pharmacy adjusting insulin # Abnormal CT of the abdomen: CT Abd/pelvis: 1. A small well-defined ovoid-shaped cyst is seen within the pancreatic body measuring about 22 x 23 mm along maximum transverse diameters with fine septa within. MRI with IV contrast is advised for future assessment. 2. Fatty hepatomegaly 3. Gall bladder stones 4. Right renal stone with no hydronephrosis 5. Right renal benign-looking cortical cysts ( [place] type I ) 6. circumferential mural thickening of the urinary bladder ( likely inflammatory) cystitis with pelvic inflammatory changes ( pelvic inflammatory disease ) 7. 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 Will likely need MRI to assess further, can pursue as OP # CVA (cerebral vascular accident): Hold aspirin currently with hematuria Continue Plavix, atorvastatin # CKD (chronic kidney disease), stage III: Cr: 1.48. Baseline Cr: 1.2-1.4 Monitor renal functions small NS bolus, uptrending cr UA studies, ctm CBC #Hypertension: Continue amlodipine # Chronic anemia: Hgb: 11.2. Baseline in . Monitor H&H #Hypothyroidism: Continue levothyroxine #Dyslipidemia: Continue atorvastatin DVT Prophylaxis SCDs currently PT/OT likely dispo 1-2 days, pending hopeful transition to [facility] Full Code as per discussion with pt and pt's son Follows with Dr Zepeda for routine care, lives in personal [place] [facility] Admission and Anticipated Discharge Date Admission Date: May 06, 2024 Subjective NAEO Reports feeling like"herself" and no overt concerns noted States she feels that rehab doesnt help her and she has a "method" at her H Denies chest pain or other acute concerns Physical Exam Constitutional: WD/WN, vitals as above Respiratory: normal respiratory effort, lungs clear to auscultation Cardiovascular: RRR, no murmur, no edema Gastrointestinal (Abdomen): normal bowel sounds, soft, nontender, no hepatosplenomegaly Results & Data Results & Data Vital Signs (Past 12 Hours) Vital Signs Temp Pulse Pulse Resp BP BP Pulse Ox 05/09/24 08:36 37.0 C 84 18 125/71 93 05/09/24 07:32 84 05/09/24 07:24 36.2 C L 82 18 104/67 90 05/09/24 03:53 36.7 C 82 18 95/58 L 92 05/08/24 23:07 05/08/24 22:40 36.9 C 87 18 126/69 92 O2 Del Method 05/09/24 08:36 Room Air 05/09/24 07:32 05/09/24 07:24 Room Air 05/09/24 03:53 Room Air 05/08/24 23:07 Room Air 05/08/24 22:40 Room Air Laboratory Results Short CBC 05/09/24 Range/Units 07:34 WBC 6.05 (4.8-10.8) K/ul Hgb 10.7 L (12.0-16.0) g/dl Hct 33.3 L (37.0-47.0) % Plt Count 213 (130-400) K/uL BMP 05/09/24 07:34 Sodium 134 L Potassium 4.1 Chloride 98 Carbon Dioxide 29 BUN 23 Creatinine 1.68 H Glucose 198 H Calcium 8.7 Medications Administered Home Medications Medication Instructions Recorded Confirmed Last Taken aspirin 81 mg chewable tablet 81 mg PO QAM 05/06/22 05/06/24 Unknown (Aspirin Childrens) atorvastatin 80 mg tablet 80 mg PO QAM 05/06/22 05/06/24 Unknown clopidogrel 75 mg tablet 75 mg PO QAM 05/06/22 05/06/24 Unknown insulin aspart U-100 100 unit/mL 8 unit subcut TIDM 05/06/22 05/06/24 Unknown (3 mL) subcutaneous pen (Novolog FlexPen U-100 Insulin aspart) loratadine 10 mg tablet 10 mg PO DAILY 05/06/22 05/06/24 Unknown metformin 500 mg tablet 500 mg PO BIDWMEAL 05/06/22 05/06/24 Unknown magnesium oxide 400 mg PO BID #60 tabs 05/08/22 05/06/24 Unknown acetaminophen 325 mg tablet 650 mg PO Q6 PRN Fever Or Pain 01/25/23 05/06/24 Unknown glipizide 10 mg tablet, extended 10 mg PO QAM 01/25/23 05/06/24 Unknown release 24 hr lutein 25 mg-zeaxanthin 5 mg 1 cap PO QAM 01/25/23 05/06/24 Unknown capsule (Ocuvite Lutein) insulin glargine 100 unit/mL (3 52 unit subcut HS 03/18/23 05/06/24 Unknown mL) subcutaneous pen (Lantus Solostar U-100 Insulin) levothyroxine 175 mcg capsule 175 mcg PO DAILYBB 05/27/23 05/06/24 Unknown omeprazole 20 mg capsule,delayed 20 mg PO DAILYBB 05/27/23 05/06/24 Unknown release amlodipine 2.5 mg tablet 2.5 mg PO QAM 11/11/23 05/06/24 Unknown guaifenesin 600 mg tablet, 600 mg PO BID PRN COUGH/CONGESTION 11/11/23 05/06/24 Unknown extended release 12 hr loperamide 2 mg capsule 2 mg PO .Q2 HOURS PRN Diarrhea 11/11/23 05/06/24 Unknown clotrimazole-betamethasone 1 1 applic topical BID 05/06/24 05/06/24 Unknown %-0.05 % topical cream glucosamine sulfate 500 mg tablet 500 mg PO DAILY 05/06/24 05/06/24 Unknown (Glucosamine) propylene glycol 0.6 % eye drops 1 - 2 drp ophthalmic (eye) . 05/06/24 05/06/24 Unknown (Systane Complete) NEEDED PRN DRYNESS Active Medications Generic Name Dose Route Start Last Admin Trade Name Freq PRN Reason Stop Dose Admin Amlodipine Besylate 2.5 mg 05/07/24 09:00 05/09/24 07:51 Amlodipine Besylate 5 Mg Tab PO 06/06/24 08:59 2.5 mg QAM JOSUÉ Administration Atorvastatin Calcium 80 mg 05/07/24 09:00 05/09/24 07:50 Atorvastatin 40 Mg Tab PO 06/06/24 08:59 80 mg QAM JOSUÉ Administration Clopidogrel Bisulfate 75 mg 05/07/24 09:00 05/09/24 07:50 Clopidogrel Bisulfate 75 Mg Tab PO 06/06/24 08:59 75 mg QAM JOSUÉ Administration Insulin Aspart 0 units 05/07/24 20:50 05/09/24 10:03 Insulin Aspart Per Unit Charge SC 06/06/24 20:49 8 units ACHS JOSUÉ Administration Insulin Glargine 50 units 05/07/24 21:00 05/08/24 20:46 Lantus Per Unit Charge SQ 06/06/24 20:59 50 units HS JOSUÉ Administration Levothyroxine Sodium 175 mcg 05/07/24 06:30 05/09/24 06:19 Levothyroxine Sodium 175 Mcg Tablet PO 06/06/24 06:29 175 mcg DAILYBB JOSUÉ Administration Loratadine 10 mg 05/07/24 09:00 05/09/24 07:50 Loratadine 10 Mg Tab PO 06/06/24 08:59 10 mg DAILY JOSUÉ Administration Magnesium Oxide 400 mg 05/06/24 22:08 11/12/24 07:51 Magnesium Oxide 400 Mg Tab PO 06/05/24 22:07 400 mg BID JOSUÉ Administration Pantoprazole Sodium 40 mg 05/07/24 06:30 05/09/24 06:19 Pantoprazole 40 Mg Tab PO 06/06/24 06:29 40 mg DAILYBB JOSUÉ Administration
[2024-05-09 10:51] VITALS: PULSE 87; RESP 16; TEMP 97.7; O2SAT 92
[2024-05-09] MEDS: SODIUM CHLORIDE 0.9% 500 ML IV ONE (11:24)
--- NOTE | 2024-05-09 15:09 | Discharge Summary ---
Discharge Summary Date of Service May 09, 2024 Principal Dx & Hospital Course #1 = Principal Diagnosis (1) Acute cystitis with hematuria: (2) Hematuria: (3) Diabetes mellitus, type II: (4) Abnormal CT of the abdomen: (5) CVA (cerebral vascular accident): (6) CKD (chronic kidney disease), stage III: (7) Hypertension: (8) Chronic anemia: (9) Hypothyroidism: (10) Dyslipidemia: Plan Ms. 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 Denies dysuria, urinary frequency, abdominal pain, flank or back pain, fever or chills. Since admission, patient has remained at baseline. No acute concerns noted including no urinary complaints. Spoke to son who reports patient is at baseline functionally. Patient completed treatment for uncomplicated ESBL uti with fosfomycin. On day of discharge, patient eager to return home and without acute concerns. Discussed with son on phone who agrees. #Positive blood culture -likely contaminant #Acute uncomplicated cystitis (no systemic effects) #Hematuria In ER patient afebrile, P: 96, R: 16, BP 142/78, 93% on room air No leukocytosis. Lactate: 2.9. Hgb: 11.2. Baseline in 11's. UA: 3+ blood, 3+ leuk esterase, >50 WBC, >20 RBC, 4+ bacteria CT Abd/pelvis: Right lower calyceal tiny stone measuring 3.7 mm with no hydronephrosis. Three right renal cortical cysts no septa or enhancing soft tissue components, no calcifications 05/04/24 urine culture +ESBL E coli. 11/15/2023 positive for E. coli ESBL. At that time patient was asymptomatic and was discussed with ID who felt was likely colonization ER Rocephin then ertapenem for 2 doses Urine with ESBL: s/p fosfomycin x 1 # Diabetes mellitus, type II: A1c: 9.0 on 11/13/2023 Insulin-dependent diabetes resume home regimen # Abnormal CT of the abdomen: CT Abd/pelvis: 1. A small well-defined ovoid-shaped cyst is seen within the pancreatic body measuring about 22 x 23 mm along maximum transverse diameters with fine septa within. MRI with IV contrast is advised for future assessment. 2. Fatty hepatomegaly 3. Gall bladder stones 4. Right renal stone with no hydronephrosis 5. Right renal benign-looking cortical cysts ( [place] type I ) 6. circumferential mural thickening of the urinary bladder ( likely inflammatory) cystitis with pelvic inflammatory changes ( pelvic inflammatory disease ) 7. 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 Will likely need MRI to assess further, can pursue as OP, informed son over phone # CVA (cerebral vascular accident): resume asa Continue Plavix, atorvastatin # CKD (chronic kidney disease), stage III: Cr: 1.48. Baseline Cr: 1.2-1.4 repeat bmp in 1 week #Hypertension: Continue amlodipine # Chronic anemia: Hgb: 11.2. Baseline in 11's. #Hypothyroidism: Continue levothyroxine #Dyslipidemia: Continue atorvastatin Notes For Next Care Provider Abnormal CT:. A small well-defined ovoid-shaped cyst is seen within the pancreatic body measuring about 22 x 23 mm along maximum transverse diameters with fine septa within. MRI with IV contrast is advised for future assessment. 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 States couple days ago had blood tinged urine and had outpatient urine culture. Today had hematuria again and came to ER. Uses wheelchair and assists with transfers at baseline. Lives [facility]. Denies dysuria, urinary frequency, abdominal pain, suprapubic pain, back pain, flank pain, fever/chills, N/V/D/C, ANGULO, dizziness, CP, SOB, cough, sore throat, rhinorrhea, paresthesias, increased weakness, increased extremity edema, rashes. Admission Exam Per Admitting Provider Physical Exam: Vitals signs as noted above General Appearance: Morbidly obese, no apparent distress Head: normocephalic, Atraumatic Eyes: normal inspection, EOMI Neck: supple, Trachea midline Respiratory/Chest: Normal breath sounds, CTA, No accessory muscle use Cardiovascular: S1, S2, No murmur Abdomen/GI:Soft, Non tender, Bowel sounds present Extremities/Musculoskeletal:normal inspection, 1+edema Neurologic/Psych:AAO, grossly no focal neurological deficits Skin: normal color, warm Discharge Exam Constitutional WD/WN, vitals as above Respiratory normal respiratory effort, lungs clear to auscultation Cardiovascular RRR, no murmur, no edema Gastrointestinal (Abdomen) normal bowel sounds, soft, nontender, no hepatosplenomegaly Updated Medication List Medication Instructions Recorded Confirmed Type aspirin 81 mg chewable tablet 81 mg PO QAM 05/06/22 05/06/24 History (Aspirin Childrens) atorvastatin 80 mg tablet 80 mg PO QAM 05/06/22 05/06/24 History clopidogrel 75 mg tablet 75 mg PO QAM 05/06/22 05/06/24 History insulin aspart U-100 100 unit/mL 8 unit subcut TIDM 05/06/22 05/06/24 History (3 mL) subcutaneous pen (Novolog FlexPen U-100 Insulin aspart) loratadine 10 mg tablet 10 mg PO DAILY 05/06/22 05/06/24 History metformin 500 mg tablet 500 mg PO BIDWMEAL 05/06/22 05/06/24 History magnesium oxide 400 mg PO BID #60 tabs 05/08/22 05/06/24 Rx acetaminophen 325 mg tablet 650 mg PO Q6 PRN Fever Or Pain 01/25/23 05/06/24 History glipizide 10 mg tablet, extended 10 mg PO QAM 01/25/23 05/06/24 History release 24 hr lutein 25 mg-zeaxanthin 5 mg 1 cap PO QAM 01/25/23 05/06/24 History capsule (Ocuvite Lutein) insulin glargine 100 unit/mL (3 52 unit subcut HS 03/18/23 05/06/24 History mL) subcutaneous pen (Lantus Solostar U-100 Insulin) levothyroxine 175 mcg capsule 175 mcg PO DAILYBB 05/27/23 05/06/24 History omeprazole 20 mg capsule,delayed 20 mg PO DAILYBB 05/27/23 05/06/24 History release amlodipine 2.5 mg tablet 2.5 mg PO QAM 11/11/23 05/06/24 History guaifenesin 600 mg tablet, 600 mg PO BID PRN COUGH/CONGESTION 11/11/23 05/06/24 History extended release 12 hr loperamide 2 mg capsule 2 mg PO .Q2 HOURS PRN Diarrhea 11/11/23 05/06/24 History clotrimazole-betamethasone 1 1 applic topical BID 05/06/24 05/06/24 History %-0.05 % topical cream glucosamine sulfate 500 mg tablet 500 mg PO DAILY 05/06/24 05/06/24 History (Glucosamine) propylene glycol 0.6 % eye drops 1 - 2 drp ophthalmic (eye) . 05/06/24 05/06/24 History (Systane Complete) NEEDED PRN DRYNESS Hospital Stay Data Consultations 05/06/24 18:09 ED Decision to Admit Stat Diagnostic Imagining Performed 05/06/24 15:32 CT Abd and Pelvis [CT abd pelvis IV con only] Stat Pending Results Patient Have Any Pending Studies at Discharge: No Discharge Instructions Given to Patient (Per Discharging Provider) You were admitted for blood in your urine and found to have a urinary tract infection. You were treated with an antibiotic called fosfomycin You underwent a CT scan on admission that had some abnormalities that require close follow up with your PCP for repeat imaging "1. A small well-defined ovoid-shaped cyst is seen within the pancreatic body measuring about 22 x 23 mm along maximum transverse diameters with fine septa within. MRI with IV contrast is advised for future assessment. 2. Fatty hepatomegaly 3. Gall bladder stones 4. Right renal stone with no hydronephrosis 5. Right renal benign-looking cortical cysts ( [place] type I ) 6. circumferential mural thickening of the urinary bladder ( likely inflammatory) cystitis with pelvic inflammatory changes ( pelvic inflammatory disease ) 7. 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 " Please discuss with PCP to coordinate upon outpatient follow up. Total Time Total Time Spent Total Time Spent (In Minutes): 45
[2024-05-09 15:11] VITALS: BP 104/67
[2024-05-09] MEDS ORDERED: LANTUS PER UNIT CHARGE SQ SCH (21:00)
== END 2024-05-09 16:30 | disposition home or self-care (01) | DRG 690 ==
LOC: ED 14:36 → 2W 18:17 → SUATTDRO 18:17 → 2W 21:40